=== PATIENT | male | born 1955 | race African-American/Black ===

== ENCOUNTER 2016-07-27 15:04 | Inpatient (IN) | payer OTHER ==
[2016-07-27 19:46] VITALS: BMI 29.6
--- NOTE | 2016-07-27 20:44 | HP ---
CIWA Score - CIWA Score Nausea/Vomitin Muscle Tremors: 3 Anxiety: 3 Agitation: 3 Paroxysmal Sweats: 2 Orientation: 0-Oriented Tacttile Disturbances: 0-None Auditory Disturbances: 0-None Visual Disturbances: 0-None Headache: 1-Very Mild CIWA-Ar Total Score: 14 Admission ROS BHS - HPI Chief Complaint: WITHDRAWAL SYMPTOMS Allergies/Adverse Reactions: Allergies Allergy/AdvReac Type Severity Reaction Status Date / Time lisinopril AdvReac Severe Swelling Verified 06/07/16 21:04 of the Face History of Present Illness: 61 Y.O. MAN WITH AN EXTENSIVE HISTORY OF ALCOHOL DEPENDENCE IS SEEKING DETOX. HE HAS HAD MULTIPLE ADMISSIONS HERE FOR DETOX AND WAS PREVIOUSLY HERE IN May,. HE DENIES HAVING A SIGNIFICANT PERIOD OF SOBRIETY. Exam Limitations: Intoxication - Ebola screening Have you traveled outside of the country in the last 21 days: No Have you had contact with anyone from an Ebola affected area: No Have you been sick,other than usual withdrawal symptoms: No - Review of Systems Constitutional: Chills, Night Sweats, Changes in sleep EENT: reports: Blurred Vision, Double Vision Respiratory: reports: No Symptoms reported Cardiac: reports: No Symptoms Reported GI: reports: No Symptoms Reported : reports: No Symptoms Reported Musculoskeletal: reports: No Symptoms Reported Integumentary: reports: Other (HAS A BRACE TO HIS RIGHT FOOT. HAD CORN REMOVAL SX TO RIGHT BIG TOE.) Neuro: reports: Tremors Endocrine: reports: No Symptoms Reported Hematology: reports: No Symptoms Reported Psychiatric: reports: Orientated x3 Other Systems: Reviewed and Negative Patient History - Patient Medical History Hx Anemia: No Hx Asthma: No Hx Chronic Obstructive Pulmonary Disease (COPD): Yes Hx Cancer: No Hx Cardiac Disorders: No Hx Congestive Heart Failure: No Hx Hypertension: Yes Hx Hypercholesterolemia: No Hx Pacemaker: No HX Cerebrovascular Accident: No Hx Seizures: No Hx Dementia: No Hx Diabetes: Yes (Type II) Hx Gastrointestinal Disorders: Yes Hx Liver Disease: No Hx Genitourinary Disorders: No Hx Sexually Transmitted Disorders: No Hx Renal Disease (ESRD): No Hx Thyroid Disease: No Hx Human Immunodeficiency Virus (HIV): No Hx Hepatitis C: No Hx Depression: Yes Hx Suicide Attempt: No Hx Bipolar Disorder: No Hx Schizophrenia: No - Patient Surgical History Past Surgical History: Yes Hx Neurologic Surgery: No Hx Cataract Extraction: No Hx Cardiac Surgery: No Hx Lung Surgery: No Hx Breast Surgery: No Hx Breast Biopsy: No Hx Abdominal Surgery: Yes (left inguinal hernia repair in 1979) Hx Appendectomy: No Hx Cholecystectomy: No Hx Genitourinary Surgery: No Hx Section: No Hx Orthopedic Surgery: No Other Surgical History: R FOOT CORN REMOVAL ON GREAT TOE 05/2016 Anesthesia Reaction: No - PPD History Previous Implant?: Yes Documented Results: Negative w/proof Implanted On Prior [facility] Admission?: Yes Date: 06/30/15 Results: 0 MM PPD to be Administered?: Yes - Reproductive History Patient is a Female of Child Bearing Age (11 -55 yrs old): No - Smoking Cessation Smoking history: Never smoked Have you smoked in the past 12 months: No Aproximately how many cigarettes per day: 0 Cigars Per Day: 0 Hx Chewing Tobacco Use: No - Substance & Tx. History Hx Alcohol Use: Yes Hx Substance Use: Yes Substance Use Type: Alcohol Hx Substance Use Treatment: Yes (DETOX AND REHAB ) - Substances Abused Alcohol Route: Oral Frequency: Daily Amount used: 6PACK OF BEER AND 1.5 PINTS OF LIQUOR Age of first use: 19 Date of Last Use: 07/27/16 Family Disease History - Family Disease History Family Disease History: Diabetes: Mother (htn), Heart Disease: Mother, Respiratory: Sister (PN ), Other: Grandparent (htn), Father (htn ) Admission Physical Exam BHS - Vital Signs Vital Signs: Vital Signs - 24 hr 07/27/16 19:44 Temperature 97.6 F Pulse Rate 62 Respiratory 16 Rate Blood Pressure 135/89 - Physical General Appearance: Yes: Disheveled, Alcohol on Breath, Intoxicated HEENTM: Yes: Normal ENT Inspection, Normocephalic, Normal Voice Respiratory: Yes: Chest Non-Tender, Lungs Clear, Normal Breath Sounds, No Respiratory Distress, No Accessory Muscle Use Neck: Yes: No masses,lesions,Nodules, Trachea in good position Breast: Yes: Breast Exam Deferred Cardiology: Yes: Regular Rhythm, Regular Rate, S1, S2 Abdominal: Yes: Normal Bowel Sounds, Non Tender, Flat, Soft Genitourinary: Yes: Within Normal Limits Back: Yes: Normal Inspection Musculoskeletal: Yes: Other (UNSTEAD GAIT; USING A CH) Extremities: Yes: Other (HAS A DRESSING AND BRACE TO RIGHT FOOT; HAD CORN REMOVAL SX. PT. STATES DRESSING TO BE CHANGED A WEEK FROM NOW. SKIN DISCOLORATION TO B/L LE) Neurological: Yes: Alert, Normal Response Integumentary: Yes: Dry, Warm Lymphatic: Yes: Within Normal Limits - Diagnostic (1) Opioid dependence on agonist therapy Current Visit: Yes Status: Chronic (2) Alcohol dependence with uncomplicated withdrawal Current Visit: Yes Status: Chronic (3) Asthma Current Visit: Yes Status: Chronic Qualifiers: Asthma severity: mild persistent Asthma complication type: with status asthmaticus Qualified Code(s): J45.32 - Mild persistent asthma with status asthmaticus (4) COPD (chronic obstructive pulmonary disease) Current Visit: Yes Status: Chronic Qualifiers: COPD type: chronic bronchitis Chronic bronchitis type: simple Qualified Code(s): J41.0 - Simple chronic bronchitis (5) Type II diabetes mellitus Current Visit: Yes Status: Chronic Qualifiers: Diabetes mellitus complication status: without complication Diabetes mellitus retirement insulin use: with exterminator helper use Qualified Code(s): E11.9 - Type 2 diabetes mellitus without complications Cleared for Admission BHS - Detox or Rehab [facility] Level of Care: Medically Managed Detox Regimen/Protocol: Librium [facility] Breath Alcohol Content Breath Alcohol Content: 0.046 Urine Drug Screen - Results Drug Screen Negative: No Urine Drug Screen Results: BZO-Benzodiazepines, MTD-Methadone
[2016-07-27] MEDS ORDERED: ALBUTEROL SO4 6.7 GM HFA INHALER IH PRN (20:56)
[2016-07-27] MEDS ORDERED: MAGNESIUM CITRATE 300 ML BOTTLE PO PRN (20:59)
[2016-07-27] MEDS ORDERED: MAGNESIUM HYDROX 2400MG/30ML ORAL SUSPENSION 30 ML CUP PO PRN (20:59)
[2016-07-27] MEDS ORDERED: LOPERAMIDE HCL 2 MG CAPSULE PO PRN (20:59)
[2016-07-27] MEDS ORDERED: P-EPHED 60MG/TRIPROLIDI 2.5MG TABLET PO PRN (20:59)
[2016-07-27] MEDS ORDERED: hydrOXYzine PAMOATE 50 MG CAPSULE (FP) PO PRN (20:59)
[2016-07-27] MEDS ORDERED: guaiFENesin/D-METHORPHAN HB 10 ML UNIT-DOSE CUPS PO PRN (20:59)
[2016-07-27] MEDS ORDERED: ACETAMINOPHEN 325 MG TABLET (FP) PO PRN (20:59)
[2016-07-27] MEDS ORDERED: chlordiazePOXIDE HCL 25 MG CAPSULE PO ONE (20:59)
[2016-07-27] MEDS ORDERED: MAG HYDROX/AL HYDROX/SIMETH 30 ML UNIT-DOSE CUP PO PRN (20:59)
[2016-07-27] MEDS ORDERED: chlordiazePOXIDE HCL 25 MG CAPSULE PO PRN (20:59)
[2016-07-27] MEDS ORDERED: MENTHOL/PHENOL 1 EACH UD MM PRN (20:59)
[2016-07-27] MEDS: diphenhydrAMINE HCL 50 MG CAPSULE PO PRN (23:25)
[2016-07-27] MEDS: THIAMINE HCL 100 MG TABLET (FP) PO SCH (23:25)
[2016-07-28] MEDS: chlordiazePOXIDE HCL 25 MG CAPSULE PO SCH ×5 (00:02→22:17)
[2016-07-28 01:13] LABS: URINE APPEARANCE CLEAR; URINE BILIRUBIN NEGATIVE (NEGATIVE); URINE BLOOD NEGATIVE (NEGATIVE); URINE COLOR STRAW; URINE GLUCOSE (UA) NEGATIVE (NEGATIVE); URINE KETONE NEGATIVE (NEGATIVE); URINE LEUK ESTERASE NEGATIVE (NEGATIVE); URINE NITRITE NEGATIVE (NEGATIVE); URINE PROTEIN NEGATIVE (NEGATIVE); URINE UROBILINOGEN NEGATIVE E.U./dl (0.2-1.0)
[2016-07-28] MEDS ORDERED: metFORMIN HCL 500 MG TABLET (FP) PO SCH (07:00)
[2016-07-28] MEDS ORDERED: METHADONE HCL 10 MG TABLET PO SCH (09:00)
--- NOTE | 2016-07-28 09:00 | PN ---
S CIWA - CIWA Score Nausea/Vomitin Muscle Tremors: 4-Moderate,w/Arms Extend Anxiety: 4-Mod. Anxious/Guarded Agitation: 4-Moderately Restless Paroxysmal Sweats: 3 Orientation: 0-Oriented Tacttile Disturbances: 1-Very Mild Itch/Numbness Auditory Disturbances: 0-None Visual Disturbances: 0-None Headache: 2-Mild CIWA-Ar Total Score: 21 BHS Progress Note (SOAP) Subjective: nausea, sweats, interrupted sleep, anxiety, tremors, tingling in feet Objective: 07/28/16 08:59 Vital Signs - 24 hr 07/27/16 07/27/16 07/28/16 19:44 23:29 03:30 Temperature 97.6 F 97.2 F L Pulse Rate 62 68 Respiratory 16 18 18 Rate Blood Pressure 135/89 121/76 07/28/16 06:41 Temperature 96.2 F L Pulse Rate 72 Respiratory 18 Rate Blood Pressure 144/81 Laboratory Tests 07/28/16 07/28/16 00:45 05:40 POC Glucometer 158 Urine Color Straw Urine Appearance Clear Urine pH 5.0 Ur Specific [place] 1.002 Urine Protein Negative Urine Glucose (UA) Negative Urine Ketones Negative Urine Blood Negative Urine Nitrite Negative Urine Bilirubin Negative Urine Urobilinogen Negative Ur Leukocyte Esterase Negative labs still pending Assessment: 07/28/16 08:59 withdrawal sx Plan: cont detox, fluids, encoruage ambulation restart meds, will restart clonidine 0.1mg bid and titrate as needed
[2016-07-28] MEDS: ASPIRIN COATED 81 MG TABLET.EC PO SCH (10:14)
[2016-07-28] MEDS: cloNIDine HCL 0.1 MG TABLET PO SCH ×2 (10:14→22:17)
[2016-07-28] MEDS: PRENATAL VITAMINS W/ FOLIC ACID TABLET (FP) PO SCH (10:15)
[2016-07-28] MEDS ORDERED: METHADONE HCL 10 MG TABLET (FOR DETOX USE ONLY) ONE (10:17)
[2016-07-28] MEDS: METHADONE PO SCH (10:18)
[2016-07-28] MEDS ORDERED: METHADONE HCL 40 MG DISPERSABLE TABLET ONE (10:18)
--- NOTE | 2016-07-28 10:56 | CONSULT ---
[facility] Psychiatric Consult - Data Date of interview: 07/28/16 Admission source: [facility] Identifying data: New admission to [facility] for this 61 y/o AA male seeking detox treatment on for alcohol and opioid dependence.Patient is single, a father of one,domiciled,unemployed and supported on welfare. Substance Abuse History: Smoking Cessation. Smoking history: Never smoked. Have you smoked in the past 12 months: No. Aproximately how many cigarettes per day: 0. Cigars Per Day: 0. Hx Chewing Tobacco Use: No. - Substance & Tx. History. Hx Alcohol Use: Yes. Hx Substance Use: Yes. Substance Use Type: Alcohol. Hx Substance Use Treatment: Yes (DETOX AND REHAB ). - Substances Abused. Alcohol. Route: Oral. Frequency: Daily. Amount used: 6PACK OF BEER AND 1.5 PINTS OF LIQUOR. Age of first use: 19. Date of Last Use: . Discussed in this interview.Patient confirms this pattern of substance abuse. Medical History: Hypertension,insulin-dependent diabetes mellitus,arthritis,COPD ,GERD,hypercholesterolemia,myocardial infarction and a past history of syphilis (treated).No change from previous encounter in May 2016. Psychiatric History: Patient denies history of psychiatric hospitalizations.Mr Barth is on methadone maintenance (90 mg/day) at the [facility] program ( [address] [place] [address] in the [place].No reported history of suicide attempts. Physical/Sexual Abuse/Trauma History: No history. Additional Comment: Urine Drug Screen Results: BZO-Benzodiazepines, MTD- Methadone.Noted. Mental Status Exam - Mental Status Exam Alert and Oriented to: Time, Place, Person Cognitive Function: Good Patient Appearance: Well Groomed Mood: Hopeful, Euthymic Affect: Appropriate, Normal Range Patient Behavior: Fatigued, Appropriate, Cooperative Speech Pattern: Clear, Appropriate Voice Loudness: Normal Thought Process: Goal Oriented Thought Disorder: Not Present Hallucinations: Denies Suicidal Ideation: Denies Homicidal Ideation: Denies Insight/Judgement: Fair Sleep: Difficulty falling asleep Appetite: Good Muscle strength/Tone: Normal Gait/Station: Normal Psychiatric Findings - Problem List ([place] 1, 2,3) (1) Alcohol dependence with uncomplicated withdrawal Current Visit: Yes Status: Acute (2) Opioid dependence on agonist therapy Current Visit: Yes Status: Acute (3) Drug-induced mood disorder Current Visit: Yes Status: Acute (4) Alcohol-induced sleep disorder Current Visit: Yes Status: Chronic (5) DM (diabetes mellitus), type 1 Current Visit: Yes Status: Chronic Qualifiers: Diabetes mellitus complication status: with circulatory complication Diabetes mellitus complication detail: with peripheral angiopathy without gangrene Qualified Code(s): E10.51 - Type 1 diabetes mellitus with diabetic peripheral angiopathy without gangrene (6) Asthma Current Visit: Yes Status: Chronic Qualifiers: Asthma severity: mild persistent Asthma complication type: with status asthmaticus Qualified Code(s): J45.32 - Mild persistent asthma with status asthmaticus (7) COPD (chronic obstructive pulmonary disease) Current Visit: Yes Status: Chronic Qualifiers: COPD type: chronic bronchitis Chronic bronchitis type: simple Qualified Code(s): J41.0 - Simple chronic bronchitis (8) GERD (gastroesophageal reflux disease) Current Visit: Yes Status: Chronic Qualifiers: Esophagitis presence: without esophagitis Qualified Code(s): K21.9 - Gastro-esophageal reflux disease without esophagitis - Initial Treatment Plan Initial Treatment Plan: Psychoeducation.Detoxification.Seroquel 100 mg po hs.Side effects/benefits discucssed with the patient.He agrees with this plan.Observation.
[2016-07-28 10:58] LABS: MCH 27.2 pg (25.7-33.7); MCHC 31.1 g/dl (32.0-35.9); MEAN CELL VOLUME 87.2 fl (80-96); MEAN PLT VOLUME 8.8 fl (7.5-11.1); PLATELET COUNT 228 K/MM3 (134-434); RDW 14.9 % (11.9-15.9); WHITE BLOOD COUNT 5.6 K/mm3 (4.0-10.0)
[2016-07-28] MEDS ORDERED: INSULIN SQ SCH ×2 (11:00→14:00)
[2016-07-28 11:09] LABS: ALBUMIN 3.2 g/dl (3.4-5.0); ALK PHOS 96 U/L (45-117); ANION GAP 9 (8-16); BILIRUBIN,TOTAL 0.4 mg/dL (0.2-1.0); CALCIUM 9.1 mg/dL (8.5-10.1); CO2 29 mmol/L (21-32); CREATININE 0.9 mg/dL (0.7-1.3); GLUCOSE,RANDOM 190 mg/dL (74-106); SGOT/AST 30 U/L (15-37); SGPT/ALT 23 U/L (12-78); TOT PROT 8.3 g/dl (6.4-8.2)
[2016-07-28] MEDS ORDERED: INSULIN (NOVOLOG) ASPART 100 UNITS/ML 10ML VIAL ONE (11:54)
[2016-07-28] MEDS: INSULIN SLIDING SCALE (NOVOLOG) 1 VIAL SQ SCH ×2 (11:55→18:03)
[2016-07-28] MEDS: AMOX TR/POT CLAV 500MG/125MG TABLETS (FP) PO SCH ×2 (11:56→17:23)
[2016-07-28] MEDS: metFORMIN HCL 500 MG TABLET (FP) PO SCH (17:23)
--- NOTE | 2016-07-28 18:27 | EKG ---
Test Reason : Blood Pressure : / mmHG Vent. Rate : 064 BPM Atrial Rate : 064 BPM P-R Int : 156 ms QRS Dur : 088 ms QT Int : 428 ms P-R-T Axes : 064 009 031 degrees QTc Int : 441 ms NORMAL SINUS RHYTHM NONSPECIFIC T WAVE ABNORMALITY ABNORMAL ECG NO PREVIOUS ECGS AVAILABLE Confirmed by CIARAN CROCKER, CARMELO ([id number]) on 07/28/2016 6:27:15 PM Referred By: Confirmed By:CARMELO WAGONER MD
[2016-07-28] MEDS ORDERED: PATIENT'S OWN MEDICATION (NON-FORMULARY) (Insulin Glargine,Hum.Rec.Anlog 20 UNITS) SQ SCH (22:00)
[2016-07-28] MEDS: QUEtiapine FUMARATE 100 MG TABLET (FP) PO SCH (22:17)
[2016-07-28] MEDS: THIAMINE HCL 100 MG TABLET (FP) PO SCH (22:17)
[2016-07-28] MEDS: diphenhydrAMINE HCL 50 MG CAPSULE PO PRN (22:18)
[2016-07-29] MEDS ORDERED: METHADONE HCL 40 MG DISPERSABLE TABLET ONE (04:20)
[2016-07-29] MEDS ORDERED: METHADONE HCL 10 MG TABLET (FOR DETOX USE ONLY) ONE (04:20)
[2016-07-29] MEDS: chlordiazePOXIDE HCL 25 MG CAPSULE PO SCH ×3 (05:17→17:27)
[2016-07-29] MEDS: METHADONE PO SCH (05:17)
[2016-07-29] MEDS ORDERED: INSULIN (NOVOLOG) ASPART 100 UNITS/ML 10ML VIAL ONE ×3 (06:25→16:50)
[2016-07-29] MEDS: Insulin (LOG) Aspart 100 UNITS/ML VIAL SQ SCH ×3 (07:12→17:30)
[2016-07-29] MEDS: metFORMIN HCL 500 MG TABLET (FP) PO SCH ×2 (07:12→17:27)
[2016-07-29] MEDS: AMOX TR/POT CLAV 500MG/125MG TABLETS (FP) PO SCH ×2 (07:14→17:28)
[2016-07-29] MEDS: PRENATAL VITAMINS W/ FOLIC ACID TABLET (FP) PO SCH (10:13)
[2016-07-29] MEDS: cloNIDine HCL 0.1 MG TABLET PO SCH ×2 (10:13→22:16)
[2016-07-29] MEDS: ASPIRIN COATED 81 MG TABLET.EC PO SCH (10:13)
--- NOTE | 2016-07-29 15:10 | PN ---
S CIWA - CIWA Score Nausea/Vomitin Muscle Tremors: 4-Moderate,w/Arms Extend Anxiety: 4-Mod. Anxious/Guarded Agitation: 4-Moderately Restless Paroxysmal Sweats: No Perspiration Orientation: 0-Oriented Tacttile Disturbances: 1-Very Mild Itch/Numbness Auditory Disturbances: 0-None Visual Disturbances: 0-None Headache: 2-Mild CIWA-Ar Total Score: 18 BHS Progress Note (SOAP) Subjective: Anxious, restless, nausea, sweating, interrupted sleep, tremor Objective: 07/29/16 15:08 Last Vital Signs Temp Pulse Resp BP Pulse Ox 98 F 80 20 118/72 07/29/16 14:09 07/29/16 14:09 07/29/16 14:09 07/29/16 14:09 Laboratory Tests 07/28/16 07/28/16 07/28/16 00:45 05:40 08:00 WBC 5.6 D RBC 4.36 Hgb 11.8 Hct 38.0 MCV 87.2 MCHC 31.1 L RDW 14.9 Plt Count 228 D MPV 8.8 Sodium Potassium Chloride Carbon Dioxide Anion Gap BUN Creatinine Creat Clearance w eGFR POC Glucometer 158 Random Glucose Calcium Total Bilirubin AST ALT Alkaline Phosphatase Total Protein Albumin Urine Color Straw Urine Appearance Clear Urine pH 5.0 Ur Specific [place] 1.002 Urine Protein Negative Urine Glucose (UA) Negative Urine Ketones Negative Urine Blood Negative Urine Nitrite Negative Urine Bilirubin Negative Urine Urobilinogen Negative Ur Leukocyte Esterase Negative RPR Titer 07/28/16 07/28/16 07/28/16 08:00 08:00 11:42 WBC RBC Hgb Hct MCV MCHC RDW Plt Count MPV Sodium 138 Potassium 4.3 Chloride 100 Carbon Dioxide 29 Anion Gap 9 BUN 12 D Creatinine 0.9 Creat Clearance w eGFR > 60 POC Glucometer 256 Random Glucose 190 H Calcium 9.1 Total Bilirubin 0.4 D AST 30 ALT 23 D Alkaline Phosphatase 96 Total Protein 8.3 H Albumin 3.2 L Urine Color Urine Appearance Urine pH Ur Specific [place] Urine Protein Urine Glucose (UA) Urine Ketones Urine Blood Urine Nitrite Urine Bilirubin Urine Urobilinogen Ur Leukocyte Esterase RPR Titer Nonreactive 07/28/16 07/29/16 16:27 05:16 WBC RBC Hgb Hct MCV MCHC RDW Plt Count MPV Sodium Potassium Chloride Carbon Dioxide Anion Gap BUN Creatinine Creat Clearance w eGFR POC Glucometer 202 326 Random Glucose Calcium Total Bilirubin AST ALT Alkaline Phosphatase Total Protein Albumin Urine Color Urine Appearance Urine pH Ur Specific [place] Urine Protein Urine Glucose (UA) Urine Ketones Urine Blood Urine Nitrite Urine Bilirubin Urine Urobilinogen Ur Leukocyte Esterase RPR Titer Labs noted Assessment: 07/29/16 15:09 Withdrawal symptoms Plan: Continue detox
[2016-07-29] MEDS: IBUPROFEN 400 MG TABLET (FP) PO PRN (20:59)
[2016-07-29] MEDS: QUEtiapine FUMARATE 100 MG TABLET (FP) PO SCH (22:16)
[2016-07-29] MEDS: THIAMINE HCL 100 MG TABLET (FP) PO SCH (22:16)
[2016-07-29] MEDS: chlordiazePOXIDE 5 MG CAPSULE PO SCH (22:16)
[2016-07-29] MEDS: diphenhydrAMINE HCL 50 MG CAPSULE PO PRN (22:18)
[2016-07-30] MEDS ORDERED: METHADONE HCL 10 MG TABLET (FOR DETOX USE ONLY) ONE (04:16)
[2016-07-30] MEDS ORDERED: METHADONE HCL 40 MG DISPERSABLE TABLET ONE (04:17)
[2016-07-30] MEDS: METHADONE PO SCH (05:47)
[2016-07-30] MEDS: chlordiazePOXIDE 5 MG CAPSULE PO SCH ×3 (05:48→16:37)
[2016-07-30] MEDS ORDERED: cloNIDine HCL 0.1 MG TABLET PO ONE ×2 (07:00→10:00)
[2016-07-30] MEDS: Insulin (LOG) Aspart 100 UNITS/ML VIAL SQ SCH ×3 (07:05→16:39)
[2016-07-30] MEDS: metFORMIN HCL 500 MG TABLET (FP) PO SCH ×2 (07:05→16:37)
[2016-07-30] MEDS: AMOX TR/POT CLAV 500MG/125MG TABLETS (FP) PO SCH ×2 (07:05→16:39)
[2016-07-30] MEDS ORDERED: cloNIDine HCL 0.1 MG TABLET PO SCH (09:14)
[2016-07-30] MEDS: PRENATAL VITAMINS W/ FOLIC ACID TABLET (FP) PO SCH (10:09)
[2016-07-30] MEDS: ASPIRIN COATED 81 MG TABLET.EC PO SCH (10:09)
--- NOTE | 2016-07-30 10:46 | PN ---
BHS Progress Note (SOAP) Subjective: SWEATS, ANXIETY,TREMORS,FATIGUE. Objective: 07/30/16 10:45 Vital Signs Temperature 96.4 F L 07/30/16 06:29 Pulse Rate 79 07/30/16 06:29 Respiratory Rate 18 07/30/16 06:29 Blood Pressure 151/92 07/30/16 06:29 O2 Sat by Pulse Oximetry (%) Laboratory Last Values WBC 5.6 K/mm3 (4.0-10.0) D 07/28/16 08:00 RBC 4.36 M/mm3 (4.00-5.60) 07/28/16 08:00 Hgb 11.8 GM/dL (11.7-16.9) 07/28/16 08:00 Hct 38.0 % (35.4-49) 07/28/16 08:00 MCV 87.2 fl (80-96) 07/28/16 08:00 MCHC 31.1 g/dl (32.0-35.9) L 07/28/16 08:00 RDW 14.9 % (11.9-15.9) 07/28/16 08:00 Plt Count 228 K/MM3 (134-434) D 07/28/16 08:00 MPV 8.8 fl (7.5-11.1) 07/28/16 08:00 Sodium 138 mmol/L (136-145) 07/28/16 08:00 Potassium 4.3 mmol/L (3.5-5.1) 07/28/16 08:00 Chloride 100 mmol/L (98-107) 07/28/16 08:00 Carbon Dioxide 29 mmol/L (21-32) 07/28/16 08:00 Anion Gap 9 (8-16) 07/28/16 08:00 BUN 12 mg/dL (7-18) D 07/28/16 08:00 Creatinine 0.9 mg/dL (0.7-1.3) 07/28/16 08:00 Creat Clearance w eGFR > 60 (>60) 07/28/16 08:00 POC Glucometer 312 UNITS (()) 07/30/16 05:45 Random Glucose 190 mg/dL (74-106) H 07/28/16 08:00 Calcium 9.1 mg/dL (8.5-10.1) 07/28/16 08:00 Total Bilirubin 0.4 mg/dL (0.2-1.0) D 07/28/16 08:00 AST 30 U/L (15-37) 07/28/16 08:00 ALT 23 U/L (12-78) D 07/28/16 08:00 Alkaline Phosphatase 96 U/L (45-117) 07/28/16 08:00 Total Protein 8.3 g/dl (6.4-8.2) H 07/28/16 08:00 Albumin 3.2 g/dl (3.4-5.0) L 07/28/16 08:00 Urine Color Straw 07/28/16 00:45 Urine Appearance Clear 07/28/16 00:45 Urine pH 5.0 (5.0-8.0) 07/28/16 00:45 Ur Specific [place] 1.002 (1.001-1.035) 07/28/16 00:45 Urine Protein Negative (NEGATIVE) 07/28/16 00:45 Urine Glucose (UA) Negative (NEGATIVE) 07/28/16 00:45 Urine Ketones Negative (NEGATIVE) 07/28/16 00:45 Urine Blood Negative (NEGATIVE) 07/28/16 00:45 Urine Nitrite Negative (NEGATIVE) 07/28/16 00:45 Urine Bilirubin Negative (NEGATIVE) 07/28/16 00:45 Urine Urobilinogen Negative E.U./dl (0.2-1.0) 07/28/16 00:45 Ur Leukocyte Esterase Negative (NEGATIVE) 07/28/16 00:45 RPR Titer Nonreactive (NONREACTIVE) 07/28/16 08:00 Assessment: 07/30/16 10:46 WITHDRAWAL SX Plan: CONTINUE DETOX
[2016-07-30] MEDS: IBUPROFEN 400 MG TABLET (FP) PO PRN ×2 (10:58→16:42)
[2016-07-30] MEDS ORDERED: INSULIN (NOVOLOG) ASPART 100 UNITS/ML 10ML VIAL ONE ×3 (11:09→21:17)
[2016-07-30] MEDS: cloNIDine HCL 0.1 MG TABLET PO SCH ×2 (14:13→21:43)
[2016-07-30] MEDS: INSULIN SLIDING SCALE (NOVOLOG) 1 VIAL SQ SCH ×2 (17:24→21:46)
[2016-07-30] MEDS ORDERED: INSULIN DETEMIR 100 UNITS/ML MDV SQ ONE (21:15)
[2016-07-30] MEDS: QUEtiapine FUMARATE 100 MG TABLET (FP) PO SCH (21:43)
[2016-07-30] MEDS: THIAMINE HCL 100 MG TABLET (FP) PO SCH (21:47)
[2016-07-30] MEDS ORDERED: INSULIN DETEMIR 100 UNITS/ML MDV SQ SCH (22:00)
[2016-07-30] MEDS: chlordiazePOXIDE HCL 10 MG CAPSULE PO SCH (22:53)
[2016-07-31] MEDS: IBUPROFEN 400 MG TABLET (FP) PO PRN ×2 (01:00→09:21)
[2016-07-31] MEDS ORDERED: METHADONE HCL 40 MG DISPERSABLE TABLET ONE (01:25)
[2016-07-31] MEDS ORDERED: METHADONE HCL 10 MG TABLET (FOR DETOX USE ONLY) ONE (01:25)
[2016-07-31] MEDS: METHADONE PO SCH (05:48)
[2016-07-31] MEDS: chlordiazePOXIDE HCL 10 MG CAPSULE PO SCH (05:48)
[2016-07-31] MEDS: metFORMIN HCL 500 MG TABLET (FP) PO SCH (06:26)
[2016-07-31] MEDS ORDERED: INSULIN (NOVOLOG) ASPART 100 UNITS/ML 10ML VIAL ONE (07:07)
[2016-07-31] MEDS: INSULIN SLIDING SCALE (NOVOLOG) 1 VIAL SQ SCH (07:47)
[2016-07-31] MEDS: cloNIDine HCL 0.1 MG TABLET PO SCH (07:47)
[2016-07-31] MEDS: AMOX TR/POT CLAV 500MG/125MG TABLETS (FP) PO SCH (07:47)
[2016-07-31] MEDS: PRENATAL VITAMINS W/ FOLIC ACID TABLET (FP) PO SCH (09:20)
[2016-07-31 10:02] VITALS: BP 136/89; PULSE 90; TEMP 97
--- NOTE | 2016-07-31 10:52 | DS ---
[facility] Detox Discharge Summary Admission Date: 07/27/16 Discharge Date: 07/31/16 - History Present History: Alcohol Dependence Additional Comments: PT COMPLETED DETOX. INSTRUCTED TO F/U WITH PMDDR. POLK AT [facility] FOR MEDICAL MANAGEMENT OF HIS COMORBID CONDITIONS. PT HAS HIS OWN MEDS. - Physical Exam Results Vital Signs: Vital Signs Temperature 97 F L 07/31/16 10:01 Pulse Rate 90 07/31/16 10:01 Respiratory Rate 20 07/31/16 10:01 Blood Pressure 136/89 07/31/16 10:01 O2 Sat by Pulse Oximetry (%) Pertinent Admission Physical Exam Findings: WITHDRAWAL SX Laboratory Last Values WBC 5.6 K/mm3 (4.0-10.0) D 07/28/16 08:00 RBC 4.36 M/mm3 (4.00-5.60) 07/28/16 08:00 Hgb 11.8 GM/dL (11.7-16.9) 07/28/16 08:00 Hct 38.0 % (35.4-49) 07/28/16 08:00 MCV 87.2 fl (80-96) 07/28/16 08:00 MCHC 31.1 g/dl (32.0-35.9) L 07/28/16 08:00 RDW 14.9 % (11.9-15.9) 07/28/16 08:00 Plt Count 228 K/MM3 (134-434) D 07/28/16 08:00 MPV 8.8 fl (7.5-11.1) 07/28/16 08:00 Sodium 138 mmol/L (136-145) 07/28/16 08:00 Potassium 4.3 mmol/L (3.5-5.1) 07/28/16 08:00 Chloride 100 mmol/L (98-107) 07/28/16 08:00 Carbon Dioxide 29 mmol/L (21-32) 07/28/16 08:00 Anion Gap 9 (8-16) 07/28/16 08:00 BUN 12 mg/dL (7-18) D 07/28/16 08:00 Creatinine 0.9 mg/dL (0.7-1.3) 07/28/16 08:00 Creat Clearance w eGFR > 60 (>60) 07/28/16 08:00 POC Glucometer 331 UNITS (()) 07/31/16 05:47 Random Glucose 190 mg/dL (74-106) H 07/28/16 08:00 Calcium 9.1 mg/dL (8.5-10.1) 07/28/16 08:00 Total Bilirubin 0.4 mg/dL (0.2-1.0) D 07/28/16 08:00 AST 30 U/L (15-37) 07/28/16 08:00 ALT 23 U/L (12-78) D 07/28/16 08:00 Alkaline Phosphatase 96 U/L (45-117) 07/28/16 08:00 Total Protein 8.3 g/dl (6.4-8.2) H 07/28/16 08:00 Albumin 3.2 g/dl (3.4-5.0) L 07/28/16 08:00 Urine Color Straw 07/28/16 00:45 Urine Appearance Clear 07/28/16 00:45 Urine pH 5.0 (5.0-8.0) 07/28/16 00:45 Ur Specific [place] 1.002 (1.001-1.035) 07/28/16 00:45 Urine Protein Negative (NEGATIVE) 07/28/16 00:45 Urine Glucose (UA) Negative (NEGATIVE) 07/28/16 00:45 Urine Ketones Negative (NEGATIVE) 07/28/16 00:45 Urine Blood Negative (NEGATIVE) 07/28/16 00:45 Urine Nitrite Negative (NEGATIVE) 07/28/16 00:45 Urine Bilirubin Negative (NEGATIVE) 07/28/16 00:45 Urine Urobilinogen Negative E.U./dl (0.2-1.0) 07/28/16 00:45 Ur Leukocyte Esterase Negative (NEGATIVE) 07/28/16 00:45 RPR Titer Nonreactive (NONREACTIVE) 07/28/16 08:00 - Treatment Hospital Course: Detox Protocol Followed, Detoxed Safely, Responded well, Discharged Condition Good - Medication Discharge Medications: Ambulatory Orders Insulin (Novolog) [Novolog Flexpen -] 10 units SQ TID 01/09/12 Aspirin Coated [Ecotrin -] 81 mg PO DAILY 09/21/15 Albuterol Sulfate Inhaler - [Ventolin HFA Inhaler -] 2 inh PO PRN PRN #1 inhaler 09/25/15 Insulin Glargine,Hum.rec.anlog [Lantus Solostar PEN -] 20 units SQ HS #1 vial Clonidine HCl [Catapres] 0.3 mg PO TID 11/20/15 Metformin HCl [Glucophage -] 500 mg PO ACBK 11/20/15 Quetiapine Fumarate [Seroquel] 100 tab PO HS #30 tablet 02/24/16 Quetiapine Fumarate [Seroquel] 100 tab PO HS #30 tablet 06/08/16 Quetiapine Fumarate [Seroquel] 100 mg PO HS #30 tablet 07/31/16 - Diagnosis (1) Alcohol dependence with uncomplicated withdrawal Status: Acute (2) Asthma Status: Chronic Qualifiers: Asthma severity: mild persistent Asthma complication type: with status asthmaticus Qualified Code(s): J45.32 - Mild persistent asthma with status asthmaticus (3) Essential hypertension Status: Chronic (4) GERD (gastroesophageal reflux disease) Status: Chronic Qualifiers: Esophagitis presence: without esophagitis Qualified Code(s): K21.9 - Gastro-esophageal reflux disease without esophagitis (5) Methadone maintenance therapy patient Status: Chronic (6) Type II diabetes mellitus Status: Chronic Qualifiers: Diabetes mellitus complication status: without complication Diabetes mellitus nursing home insulin use: with termite treater helper use Qualified Code(s): E11.9 - Type 2 diabetes mellitus without complications (7) Anemia Status: Resolved Qualifiers: Anemia type: folate deficiency Folate deficiency anemia type: dietary Qualified Code(s): D52.0 - Dietary folate deficiency anemia (8) Opioid dependence on agonist therapy Status: Acute (9) Cocaine dependence Status: Chronic Qualifiers: Substance use status: uncomplicated Qualified Code(s): F14.20 - Cocaine dependence, uncomplicated - AMA Did Patient Leave Against Medical Advice: No
== END 2016-07-31 09:45 | disposition home or self-care (01) | DRG 773 ==
LOC: YASAS 15:04 → Y3N 21:19
PROVIDERS: ADMIT Internal Medicine; ATTEND Internal Medicine
PROC: HZ2ZZZZ Detoxification Services for Substance Abuse Treatment (ICD-10-PCS; principal; 2016-07-31)
DX: F11.23 Opioid dependence with withdrawal (principal); F10.230 Alcohol dependence with withdrawal, uncomplicated; F14.20 Cocaine dependence, uncomplicated; F19.282 Other psychoactive substance dependence with psychoactive substance-induced sleep disorder; I10 Essential (primary) hypertension; E11.9 Type 2 diabetes mellitus without complications; Z79.4 Long term (current) use of insulin; J45.32 Mild persistent asthma with status asthmaticus; D52.0 Dietary folate deficiency anemia
CPT/HCPCS: 36415; 80053; 81003; 85027; 86593; 93005; 93010

== ENCOUNTER 2016-10-15 16:45 | Inpatient (IN) | payer OTHER ==
[2016-10-15 19:02] VITALS: BMI 31.2
--- NOTE | 2016-10-15 20:23 | HP ---
CIWA Score - CIWA Score Nausea/Vomitin Muscle Tremors: 4-Moderate,w/Arms Extend Anxiety: 3 Agitation: 4-Moderately Restless Paroxysmal Sweats: 2 Orientation: 1-Uncertain about Date Tacttile Disturbances: 1-Very Mild Itch/Numbness Auditory Disturbances: 1-Very Mild Visual Disturbances: 1-Very Mild Sensitivity Headache: 1-Very Mild CIWA-Ar Total Score: 20 Admission ROS BHS - HPI Chief Complaint: WITHDRAWAL SYMPTOMS Allergies/Adverse Reactions: Allergies Allergy/AdvReac Type Severity Reaction Status Date / Time lisinopril AdvReac Severe Swelling Verified 07/27/16 21:17 of the Face History of Present Illness: 61 Y.O. MAN WITH AN EXTENSIVE HISTORY OF ALCOHOL DEPENDENCE IS HERE SEEKING DETOX. HE WAS LAST HERE ON 07/27/16. HE DOES NOT HAVE A SIGNIFICANT PERIOD OF SOBRIETY. HE'S IN A MMTP AT [facility] AND REPORTS HE WAS LAST DOSED TODAY. Exam Limitations: Intoxication - Ebola screening Have you traveled outside of the country in the last 21 days: No Have you had contact with anyone from an Ebola affected area: No Have you been sick,other than usual withdrawal symptoms: No Do you have a fever: No - Review of Systems Constitutional: Loss of Appetite, Malaise, Night Sweats, Changes in sleep, Unintentional Wgt. Loss EENT: reports: No Symptoms Reported Respiratory: reports: Shortness of Breath (WITH MAXIMAL EXERTION) Cardiac: reports: No Symptoms Reported GI: reports: Poor Appetite : reports: No Symptoms Reported Musculoskeletal: reports: Other (CORN REMOVAL SURGERY IN 05/2016; WEARS BRACE ON RIGHT FOOT.) Integumentary: reports: Dryness Neuro: reports: No Symptoms reported Endocrine: reports: No Symptoms Reported Hematology: reports: No Symptoms Reported Psychiatric: reports: Mood/Affect Appropiate, Depressed, other (INSOMNIA) Other Systems: Reviewed and Negative Patient History - Patient Medical History Hx Anemia: No Hx Asthma: No Hx Chronic Obstructive Pulmonary Disease (COPD): Yes Hx Cancer: No Hx Cardiac Disorders: No Hx Congestive Heart Failure: No Hx Hypertension: Yes Hx Hypercholesterolemia: No Hx Pacemaker: No HX Cerebrovascular Accident: No Hx Seizures: No Hx Dementia: No Hx Diabetes: Yes Hx Gastrointestinal Disorders: No Hx Liver Disease: No Hx Genitourinary Disorders: No Hx Sexually Transmitted Disorders: No Hx Renal Disease (ESRD): No Hx Thyroid Disease: No Hx Human Immunodeficiency Virus (HIV): No Hx Hepatitis C: No Hx Depression: Yes Hx Suicide Attempt: No Hx Bipolar Disorder: No Hx Schizophrenia: No - Patient Surgical History Past Surgical History: Yes Hx Neurologic Surgery: No Hx Cataract Extraction: No Hx Cardiac Surgery: No Hx Lung Surgery: No Hx Breast Surgery: No Hx Breast Biopsy: No Hx Abdominal Surgery: Yes (left inguinal hernia repair in 1979) Hx Appendectomy: No Hx Cholecystectomy: No Hx Genitourinary Surgery: No Hx Section: No Hx Orthopedic Surgery: No Other Surgical History: R FOOT CORN REMOVAL ON GREAT TOE 05/2016 Anesthesia Reaction: No - PPD History Previous Implant?: Yes Documented Results: Negative w/proof Implanted On Prior [facility] Admission?: Yes Date: 07/29/16 Results: 0 MM PPD to be Administered?: Yes - Reproductive History Patient is a Female of Child Bearing Age (11 -55 yrs old): No - Smoking Cessation Smoking history: Never smoked Have you smoked in the past 12 months: No Aproximately how many cigarettes per day: 0 Cigars Per Day: 0 Hx Chewing Tobacco Use: No - Substance & Tx. History Hx Alcohol Use: Yes Hx Substance Use: Yes Substance Use Type: Alcohol, Heroin Hx Substance Use Treatment: Yes (DETOX ) - Substances Abused Alcohol Route: Oral Frequency: Daily Amount used: 1/2 PINT OF LIQUOR + 1 6 PACK OF BEER Age of first use: 18 Date of Last Use: 10/15/16 Family Disease History - Family Disease History Family Disease History: Diabetes: Mother (htn), Heart Disease: Mother, Respiratory: Sister (PN ), Other: Grandparent (htn), Father (htn ) Admission Physical Exam [facility] - Vital Signs Vital Signs: Vital Signs - 24 hr 10/15/16 19:00 Temperature 95.7 F L Pulse Rate 78 Respiratory 20 Rate Blood Pressure 179/106 - Physical General Appearance: Yes: Disheveled, Alcohol on Breath, Intoxicated, Irritable, Anxious HEENTM: Yes: Hearing grossly Normal, Normal ENT Inspection, Normocephalic, Normal Voice Respiratory: Yes: Chest Non-Tender, Lungs Clear, Normal Breath Sounds, No Respiratory Distress, No Accessory Muscle Use Neck: Yes: No masses,lesions,Nodules, Trachea in good position Breast: Yes: Breast Exam Deferred Cardiology: Yes: Regular Rhythm, Regular Rate, S1, S2 Abdominal: Yes: Non Tender, Flat Genitourinary: Yes: Other (NO COMPLAINTS REPORTED) Back: Yes: Normal Inspection Musculoskeletal: Yes: Other (WEARS A BRACE TO RIGHT FOOT.) Extremities: Yes: Tremors Neurological: Yes: Alert, Normal Mood/Affect, Normal Response Integumentary: Yes: Dry, Warm Lymphatic: Yes: Within Normal Limits - Diagnostic (1) Alcohol dependence with uncomplicated withdrawal Current Visit: Yes Status: Chronic (2) Opioid dependence on agonist therapy Current Visit: Yes Status: Chronic (3) COPD (chronic obstructive pulmonary disease) Current Visit: Yes Status: Chronic Qualifiers: COPD type: chronic bronchitis Chronic bronchitis type: simple Qualified Code(s): J41.0 - Simple chronic bronchitis (4) Essential hypertension Current Visit: Yes Status: Chronic (5) Type II diabetes mellitus Current Visit: Yes Status: Chronic Qualifiers: Diabetes mellitus complication status: without complication Diabetes mellitus joint terminal attack controller insulin use: with joint terminal attack controller use Qualified Code(s): E11.9 - Type 2 diabetes mellitus without complications Cleared for Admission [facility] - Detox or Rehab [facility] Level of Care: Medically Managed Detox Regimen/Protocol: Librium [facility] Breath Alcohol Content Breath Alcohol Content: 0.103 Urine Drug Screen - Results Drug Screen Negative: No Urine Drug Screen Results: YAMILA-Cocaine, BZO-Benzodiazepines, MTD-Methadone, TCA- Tricyclic Antidepress
[2016-10-15] MEDS ORDERED: chlordiazePOXIDE HCL 25 MG CAPSULE PO ONE (20:35)
[2016-10-15] MEDS ORDERED: MENTHOL/PHENOL 1 EACH UD MM PRN (20:35)
[2016-10-15] MEDS ORDERED: hydrOXYzine PAMOATE 50 MG CAPSULE (FP) PO PRN (20:35)
[2016-10-15] MEDS ORDERED: IBUPROFEN 400 MG TABLET (FP) PO PRN (20:35)
[2016-10-15] MEDS ORDERED: chlordiazePOXIDE HCL 25 MG CAPSULE PO PRN (20:35)
[2016-10-15] MEDS ORDERED: MAGNESIUM HYDROX 2400MG/30ML ORAL SUSPENSION 30 ML CUP PO PRN (20:35)
[2016-10-15] MEDS ORDERED: P-EPHED 60MG/TRIPROLIDI 2.5MG TABLET PO PRN (20:35)
[2016-10-15] MEDS ORDERED: ACETAMINOPHEN 325 MG TABLET (FP) PO PRN (20:35)
[2016-10-15] MEDS ORDERED: diphenhydrAMINE HCL 50 MG CAPSULE PO PRN (20:35)
[2016-10-15] MEDS ORDERED: MAG HYDROX/AL HYDROX/SIMETH 30 ML UNIT-DOSE CUP PO PRN (20:35)
[2016-10-15] MEDS ORDERED: LOPERAMIDE HCL 2 MG CAPSULE PO PRN (20:35)
[2016-10-15] MEDS ORDERED: guaiFENesin/D-METHORPHAN HB 10 ML UNIT-DOSE CUPS PO PRN (20:35)
[2016-10-15] MEDS ORDERED: MAGNESIUM CITRATE 300 ML BOTTLE PO PRN (20:35)
[2016-10-15] MEDS ORDERED: ALBUTEROL SO4 6.7 GM HFA INHALER IH PRN (20:36)
[2016-10-15] MEDS ORDERED: INSULIN (NOVOLOG) ASPART 100 UNITS/ML 10ML VIAL ONE (21:47)
[2016-10-15] MEDS: THIAMINE HCL 100 MG TABLET (FP) PO SCH (21:48)
[2016-10-15] MEDS: cloNIDine HCL 0.1 MG TABLET PO SCH (21:49)
[2016-10-15] MEDS: ATORVASTATIN CA 40 MG TABLET (FP) PO SCH (21:49)
[2016-10-15] MEDS: RANITIDINE HCL 150 MG TABLET (FP) PO SCH (21:49)
[2016-10-15] MEDS: DOCUSATE SODIUM 100 MG CAPSULE (FP) PO SCH (21:49)
[2016-10-15] MEDS: FERROUS SO4 325 MG TABLET (FP) PO SCH (21:49)
[2016-10-15] MEDS: INSULIN SLIDING SCALE (NOVOLOG) 1 VIAL SQ SCH (21:54)
[2016-10-15] MEDS: INSULIN DETEMIR 100 UNITS/ML MDV SQ SCH (21:58)
[2016-10-15] MEDS: HEPARIN NA (PORCINE) 5,000 UNITS/ML 1ML VIAL SQ SCH (22:30)
[2016-10-15 23:29] LABS: URINE APPEARANCE CLEAR; URINE BILIRUBIN NEGATIVE (NEGATIVE); URINE BLOOD NEGATIVE (NEGATIVE); URINE COLOR LTYELLOW; URINE GLUCOSE (UA) 1+ (NEGATIVE); URINE KETONE NEGATIVE (NEGATIVE); URINE LEUK ESTERASE NEGATIVE (NEGATIVE); URINE NITRITE NEGATIVE (NEGATIVE); URINE PROTEIN NEGATIVE (NEGATIVE); URINE UROBILINOGEN NEGATIVE E.U./dl (0.2-1.0)
[2016-10-15] MEDS: hydrALAZINE HCL 50 MG TABLET (FP) PO SCH (23:43)
[2016-10-15] MEDS: chlordiazePOXIDE HCL 25 MG CAPSULE PO SCH (23:44)
[2016-10-15] MEDS: BUDESONIDE/FORMETEROL FUMARATE 160/4.5 mcg INHALER IH SCH (23:44)
[2016-10-16] MEDS: hydrALAZINE HCL 50 MG TABLET (FP) PO SCH ×3 (05:30→22:38)
[2016-10-16] MEDS: cloNIDine HCL 0.1 MG TABLET PO SCH ×3 (05:31→22:38)
[2016-10-16] MEDS: chlordiazePOXIDE HCL 25 MG CAPSULE PO SCH ×4 (05:33→22:39)
[2016-10-16] MEDS ORDERED: metFORMIN HCL 500 MG TABLET (FP) PO SCH (07:00)
[2016-10-16] MEDS: HEPARIN NA (PORCINE) 5,000 UNITS/ML 1ML VIAL SQ SCH ×2 (07:23→14:58)
[2016-10-16] MEDS: DOCUSATE SODIUM 100 MG CAPSULE (FP) PO SCH ×3 (07:26→22:39)
[2016-10-16] MEDS: INSULIN SLIDING SCALE (NOVOLOG) 1 VIAL SQ SCH ×3 (07:27→16:56)
[2016-10-16] MEDS ORDERED: METHADONE HCL 10 MG TABLET PO ONE (08:42)
[2016-10-16] MEDS: INSULIN (NOVOLOG) ASPART 100 UNITS/ML 10ML VIAL SQ SCH ×3 (08:43→16:55)
[2016-10-16] MEDS ORDERED: ASPIRIN COATED 81 MG TABLET.EC PO SCH (10:00)
[2016-10-16] MEDS ORDERED: PRENATAL VITAMINS W/ FOLIC ACID TABLET (FP) PO SCH (10:00)
[2016-10-16] MEDS ORDERED: predniSONE 20 MG TABLET (UD) PO SCH (10:00)
[2016-10-16] MEDS ORDERED: amLODIPine BESYLATE 10 MG TABLET (FP) PO SCH (10:00)
[2016-10-16] MEDS ORDERED: AZITHROMYCIN 250 MG TABLET (FP) PO SCH (10:00)
--- NOTE | 2016-10-16 10:01 | CONSULT ---
[facility] Psychiatric Consult - Data Date of interview: 10/16/16 Admission source: [facility] Identifying data: Another admission to [facility] for this 61 y/o AA male seeking detox treatment on for alcohol and opioid dependence.Patient is single,a father of one,domiciled,unemployed and supported on welfare. Substance Abuse History: - Smoking Cessation. Smoking history: Never smoked. Have you smoked in the past 12 months: No. Aproximately how many cigarettes per day: 0. Cigars Per Day: 0. Hx Chewing Tobacco Use: No. - Substance & Tx. History. Hx Alcohol Use: Yes. Hx Substance Use: Yes. Substance Use Type: Alcohol, Heroin. Hx Substance Use Treatment: Yes (DETOX ). - Substances Abused. Alcohol. Route: Oral. Frequency: Daily. Amount used: 1/2 PINT OF LIQUOR + 1 6 PACK OF BEER. Age of first use: 18. Date of Last Use: 10/15/16. Confirmed by patient. Medical History: Hypertension,insulin-dependent diabetes mellitus,arthritis,COPD ,GERD,hypercholesterolemia,myocardial infarction,left inguinal herniorraphy ( 1979) and a past history of syphilis (treated).Additional history of foot surgery (corn removal from right great toe) in 2016.Patient wears a brace on right foot.Ambulates with a cane. Psychiatric History: No history of psychiatric hospitalizations.Mr Barth is on methadone maintenance (30 mg/day) at the [facility] MMTP program ([address] [place] [address] in the [place].No reported history of suicide attempts. Physical/Sexual Abuse/Trauma History: Patient denies. Additional Comment: Urine Drug Screen Results: YAMILA-Cocaine, BZO-Benzodiazepines , MTD-Methadone, TCA-Tricyclic Antidepressant.Noted. Mental Status Exam - Mental Status Exam Alert and Oriented to: Time, Place, Person Cognitive Function: Grossly Intact Patient Appearance: Unkempt, Disheveled Mood: Anxious, Apprehensive Affect: Mood Congruent Patient Behavior: Fatigued, Appropriate, Cooperative Speech Pattern: Clear Voice Loudness: Normal Thought Process: Goal Oriented Thought Disorder: Not Present Hallucinations: Denies Suicidal Ideation: Denies Homicidal Ideation: Denies Insight/Judgement: Poor Sleep: Poorly, Difficulty falling asleep Appetite: Good Muscle strength/Tone: Normal Gait/Station: Other (ambulates with a cane.) Psychiatric Findings - Problem List ([place] 1, 2,3) (1) Alcohol dependence with uncomplicated withdrawal Current Visit: Yes Status: Acute (2) Opioid dependence on agonist therapy Current Visit: Yes Status: Acute (3) Drug-induced mood disorder Current Visit: Yes Status: Acute (4) Asthma Current Visit: Yes Status: Chronic Qualifiers: Asthma severity: mild persistent Asthma complication type: with status asthmaticus Qualified Code(s): J45.32 - Mild persistent asthma with status asthmaticus (5) Chronic bronchitis Current Visit: Yes Status: Chronic Qualifiers: Chronic bronchitis type: simple Qualified Code(s): J41.0 - Simple chronic bronchitis (6) GERD (gastroesophageal reflux disease) Current Visit: Yes Status: Chronic Qualifiers: Esophagitis presence: without esophagitis Qualified Code(s): K21.9 - Gastro-esophageal reflux disease without esophagitis (7) COPD (chronic obstructive pulmonary disease) Current Visit: Yes Status: Chronic Qualifiers: COPD type: chronic bronchitis Chronic bronchitis type: simple Qualified Code(s): J41.0 - Simple chronic bronchitis (8) Essential hypertension Current Visit: Yes Status: Chronic (9) Insomnia Current Visit: Yes Status: Chronic Qualifiers: Insomnia type: primary Qualified Code(s): F51.01 - Primary insomnia - Initial Treatment Plan Initial Treatment Plan: Previous records are reviewed.Psychoeducation.Detoxification.Medication : seroquel 100 mg po hs ( patient's request).Side effects/benefits discussed with the patient.Mr Barth agrees with this careplan.Observation.
[2016-10-16] MEDS: BUDESONIDE/FORMETEROL FUMARATE 160/4.5 mcg INHALER IH SCH ×2 (10:22→23:14)
[2016-10-16] MEDS: FERROUS SO4 325 MG TABLET (FP) PO SCH ×2 (10:23→22:39)
[2016-10-16] MEDS: RANITIDINE HCL 150 MG TABLET (FP) PO SCH ×2 (10:23→22:39)
[2016-10-16 10:41] LABS: MCH 27.8 pg (25.7-33.7); MCHC 32.1 g/dl (32.0-35.9); MEAN CELL VOLUME 86.6 fl (80-96); MEAN PLT VOLUME 8.9 fl (7.5-11.1); PLATELET COUNT 210 K/MM3 (134-434); RDW 14.9 % (11.9-15.9); WHITE BLOOD COUNT 4.5 K/mm3 (4.0-10.0)
[2016-10-16 11:06] LABS: ALBUMIN 2.7 g/dl (3.4-5.0); ALK PHOS 93 U/L (45-117); ANION GAP 9 (8-16); BILIRUBIN,TOTAL 0.4 mg/dL (0.2-1.0); CALCIUM 8.8 mg/dL (8.5-10.1); CO2 27 mmol/L (21-32); COCKROFT - GAULT 119.91; CREATININE 0.8 mg/dL (0.7-1.3); SGOT/AST 16 U/L (15-37); SGPT/ALT 14 U/L (12-78); TOT PROT 7.2 g/dl (6.4-8.2)
--- NOTE | 2016-10-16 11:12 | PN ---
[facility] CIWA - CIWA Score Nausea/Vomitin-No Nausea/No Vomiting Muscle Tremors: 4-Moderate,w/Arms Extend Anxiety: 4-Mod. Anxious/Guarded Agitation: 4-Moderately Restless Paroxysmal Sweats: 1-Minimal Palms Moist Orientation: 0-Oriented Tacttile Disturbances: 3-Moderate Itch/Numb/Burn Auditory Disturbances: 0-None Visual Disturbances: 0-None Headache: 0-None Present CIWA-Ar Total Score: 16 S Progress Note (SOAP) Subjective: ANXIETY,IRRITABILITY,AGITATIONS,ARGUMENTATIVE WITH STAFF. SOMETIMES WITH POOR IMPULSE CONTROL. Objective: 10/16/16 11:11 Vital Signs Temperature 97.5 F L 10/16/16 09:38 Pulse Rate 75 10/16/16 09:38 Respiratory Rate 20 10/16/16 09:38 Blood Pressure 105/70 10/16/16 09:38 O2 Sat by Pulse Oximetry (%) Laboratory Last Values WBC 4.5 K/mm3 (4.0-10.0) 10/16/16 07:00 RBC 4.22 M/mm3 (4.00-5.60) 10/16/16 07:00 Hgb 11.7 GM/dL (11.7-16.9) 10/16/16 07:00 Hct 36.5 % (35.4-49) 10/16/16 07:00 MCV 86.6 fl (80-96) 10/16/16 07:00 MCHC 32.1 g/dl (32.0-35.9) 10/16/16 07:00 RDW 14.9 % (11.9-15.9) 10/16/16 07:00 Plt Count 210 K/MM3 (134-434) 10/16/16 07:00 MPV 8.9 fl (7.5-11.1) 10/16/16 07:00 POC Glucometer 301 UNITS (()) 10/16/16 05:29 Urine Color Ltyellow 10/15/16 23:10 Urine Appearance Clear 10/15/16 23:10 Urine pH 5.0 (5.0-8.0) 10/15/16 23:10 Ur Specific [place] 1.012 (1.001-1.035) 10/15/16 23:10 Urine Protein Negative (NEGATIVE) 10/15/16 23:10 Urine Glucose (UA) 1+ (NEGATIVE) H 10/15/16 23:10 Urine Ketones Negative (NEGATIVE) 10/15/16 23:10 Urine Blood Negative (NEGATIVE) 10/15/16 23:10 Urine Nitrite Negative (NEGATIVE) 10/15/16 23:10 Urine Bilirubin Negative (NEGATIVE) 10/15/16 23:10 Urine Urobilinogen Negative E.U./dl (0.2-1.0) 10/15/16 23:10 Ur Leukocyte Esterase Negative (NEGATIVE) 10/15/16 23:10 OTHER LAB RESULTS PENDING Assessment: 10/16/16 11:11 WITHDRAWAL SX Plan: CONTINUE DETOX
[2016-10-16 11:53] LABS: GLUCOSE,RANDOM 307 mg/dL (74-106)
[2016-10-16] MEDS ORDERED: INSULIN (NOVOLOG) ASPART 100 UNITS/ML 10ML VIAL SQ ONE (21:59)
[2016-10-16] MEDS ORDERED: QUEtiapine FUMARATE 100 MG TABLET (FP) PO SCH (22:00)
[2016-10-16] MEDS: INSULIN DETEMIR 100 UNITS/ML MDV SQ SCH (22:00)
[2016-10-16] MEDS: ATORVASTATIN CA 40 MG TABLET (FP) PO SCH (22:39)
[2016-10-16] MEDS: THIAMINE HCL 100 MG TABLET (FP) PO SCH (23:14)
[2016-10-16] MEDS ORDERED: INSULIN (NOVOLOG) ASPART 100 UNITS/ML 10ML VIAL ONE (23:23)
[2016-10-17] MEDS: cloNIDine HCL 0.1 MG TABLET PO SCH (05:35)
[2016-10-17] MEDS: hydrALAZINE HCL 50 MG TABLET (FP) PO SCH (05:35)
[2016-10-17] MEDS: DOCUSATE SODIUM 100 MG CAPSULE (FP) PO SCH (05:35)
[2016-10-17] MEDS: chlordiazePOXIDE HCL 25 MG CAPSULE PO SCH (05:35)
[2016-10-17] MEDS ORDERED: METHADONE HCL 10 MG TABLET PO SCH (06:00)
[2016-10-17 06:57] VITALS: BP 148/96; PULSE 83; TEMP 97.1
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
--- NOTE | 2016-10-17 08:29 | EKG ---
Test Reason : Blood Pressure : / mmHG Vent. Rate : 084 BPM Atrial Rate : 084 BPM P-R Int : 238 ms QRS Dur : 092 ms QT Int : 380 ms P-R-T Axes : 062 014 -16 degrees QTc Int : 449 ms SINUS RHYTHM WITH 1ST DEGREE A-V BLOCK NONSPECIFIC T WAVE ABNORMALITY ABNORMAL ECG WHEN COMPARED WITH ECG OF 27-JUL-2016 23:38, [place] INTERVAL HAS INCREASED Confirmed by SEGUNDO CROCKER, DANN ([id number]) on 10/17/2016 8:28:52 AM Referred By: Confirmed By:DANN RAYMOND MD
[2016-10-17] MEDS ORDERED: chlordiazePOXIDE 5 MG CAPSULE PO SCH (23:00)
[2016-10-18] MEDS ORDERED: chlordiazePOXIDE HCL 10 MG CAPSULE PO SCH (23:00)
--- NOTE | 2016-11-25 15:39 | DS ---
[facility] Detox Discharge Summary Admission Date: 10/15/16 Discharge Date: 10/17/16 - History Present History: Alcohol Dependence, MMTP Pertinent Past History: Type II DM HTN GERD - Physical Exam Results Vital Signs: Vital Signs Temperature 97.1 F L 10/17/16 06:57 Pulse Rate 83 10/17/16 06:57 Respiratory Rate 18 10/17/16 06:57 Blood Pressure 148/96 10/17/16 06:57 O2 Sat by Pulse Oximetry (%) Pertinent Admission Physical Exam Findings: Withdrawal sx. Laboratory Last Values WBC 4.5 K/mm3 (4.0-10.0) 10/16/16 07:00 RBC 4.22 M/mm3 (4.00-5.60) 10/16/16 07:00 Hgb 11.7 GM/dL (11.7-16.9) 10/16/16 07:00 Hct 36.5 % (35.4-49) 10/16/16 07:00 MCV 86.6 fl (80-96) 10/16/16 07:00 MCHC 32.1 g/dl (32.0-35.9) 10/16/16 07:00 RDW 14.9 % (11.9-15.9) 10/16/16 07:00 Plt Count 210 K/MM3 (134-434) 10/16/16 07:00 MPV 8.9 fl (7.5-11.1) 10/16/16 07:00 Sodium 133 mmol/L (136-145) L 10/16/16 07:00 Potassium 4.3 mmol/L (3.5-5.1) 10/16/16 07:00 Chloride 97 mmol/L (98-107) L 10/16/16 07:00 Carbon Dioxide 27 mmol/L (21-32) 10/16/16 07:00 Anion Gap 9 (8-16) 10/16/16 07:00 BUN 11 mg/dL (7-18) 10/16/16 07:00 Creatinine 0.8 mg/dL (0.7-1.3) 10/16/16 07:00 Creat Clearance w eGFR > 60 (>60) 10/16/16 07:00 POC Glucometer 333 UNITS (()) 10/17/16 05:37 Random Glucose 307 mg/dL (74-106) H* D 10/16/16 07:00 Calcium 8.8 mg/dL (8.5-10.1) 10/16/16 07:00 Total Bilirubin 0.4 mg/dL (0.2-1.0) 10/16/16 07:00 AST 16 U/L (15-37) D 10/16/16 07:00 ALT 14 U/L (12-78) D 10/16/16 07:00 Alkaline Phosphatase 93 U/L (45-117) 10/16/16 07:00 Total Protein 7.2 g/dl (6.4-8.2) 10/16/16 07:00 Albumin 2.7 g/dl (3.4-5.0) L 10/16/16 07:00 Urine Color Ltyellow 10/15/16 23:10 Urine Appearance Clear 10/15/16 23:10 Urine pH 5.0 (5.0-8.0) 10/15/16 23:10 Ur Specific [place] 1.012 (1.001-1.035) 10/15/16 23:10 Urine Protein Negative (NEGATIVE) 10/15/16 23:10 Urine Glucose (UA) 1+ (NEGATIVE) H 10/15/16 23:10 Urine Ketones Negative (NEGATIVE) 10/15/16 23:10 Urine Blood Negative (NEGATIVE) 10/15/16 23:10 Urine Nitrite Negative (NEGATIVE) 10/15/16 23:10 Urine Bilirubin Negative (NEGATIVE) 10/15/16 23:10 Urine Urobilinogen Negative E.U./dl (0.2-1.0) 10/15/16 23:10 Ur Leukocyte Esterase Negative (NEGATIVE) 10/15/16 23:10 RPR Titer Nonreactive (NONREACTIVE) 10/16/16 07:00 labs noted - Treatment Patient has Accepted a Rehab Referral to: [facility] - Medication Discharge Medications: Ambulatory Orders Insulin (Novolog) [Novolog Flexpen -] 10 units SQ TID 01/09/12 Aspirin Coated [Ecotrin -] 81 mg PO DAILY 09/21/15 Albuterol Sulfate Inhaler - [Ventolin HFA Inhaler -] 2 inh PO PRN PRN #1 inhaler 09/25/15 Insulin Glargine,Hum.rec.anlog [Lantus Solostar PEN -] 20 units SQ HS #1 vial Clonidine HCl [Catapres] 0.3 mg PO TID 11/20/15 Metformin HCl [Glucophage -] 500 mg PO ACBK 11/20/15 Quetiapine Fumarate [Seroquel] 100 tab PO HS #30 tablet 02/24/16 Quetiapine Fumarate [Seroquel] 100 tab PO HS #30 tablet 06/08/16 Quetiapine Fumarate [Seroquel] 100 mg PO HS #30 tablet 07/31/16 Amlodipine Besylate 10 mg PO DAILY 10/15/16 Atorvastatin Calcium 40 mg PO HS 10/15/16 Azithromycin 500 mg PO DAILY 10/15/16 Budesonide/Formeterol Fumarate [SYMBICORT 160/4.5mcg -] 2 inh PO BID 10/15/16 Docusate Sodium [Colace -] 100 mg PO TID 10/15/16 Ergocalciferol (Vitamin D2) [Vitamin D2] 400 unit PO DAILY 10/15/16 Ferrous Sulfate 325 mg PO BID 10/15/16 Gabapentin 100 mg PO TID 10/15/16 Heparin Sod,Porcine/0.9 % NaCl [Heparin-Ns 1,000 Unit/1,000 ml] 5,000 unit IV TID 10/15/16 Hydralazine HCl 100 mg PO TID 10/15/16 Ipratropium 0.02 0.5 mg IH QID PRN 10/15/16 Prednisone [Deltasone] 40 mg PO DAILY 10/15/16 Ranitidine [Zantac -] 150 mg PO BID 10/15/16 Quetiapine Fumarate [Seroquel] 100 mg PO HS #30 tablet MDD 100 mg 10/16/16 - Diagnosis (1) Alcohol dependence with uncomplicated withdrawal Status: Acute (2) Drug-induced mood disorder Status: Acute (3) Opioid dependence on agonist therapy Status: Acute (4) Asthma Status: Chronic Qualifiers: Asthma severity: mild persistent Asthma complication type: with status asthmaticus Qualified Code(s): J45.32 - Mild persistent asthma with status asthmaticus (5) Essential hypertension Status: Chronic (6) GERD (gastroesophageal reflux disease) Status: Chronic Qualifiers: Esophagitis presence: without esophagitis Qualified Code(s): K21.9 - Gastro-esophageal reflux disease without esophagitis (7) Type II diabetes mellitus Status: Chronic Qualifiers: Diabetes mellitus complication status: without complication 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
== END 2016-10-17 06:15 | disposition home or self-care (01) | DRG 773 ==
LOC: YASAS 16:45 → Y3N 19:47
PROVIDERS: ADMIT Internal Medicine; ATTEND Internal Medicine
PROC: HZ2ZZZZ Detoxification Services for Substance Abuse Treatment (ICD-10-PCS; principal; 2016-10-15)
DX: F10.230 Alcohol dependence with withdrawal, uncomplicated (principal); F11.20 Opioid dependence, uncomplicated; F19.24 Other psychoactive substance dependence with psychoactive substance-induced mood disorder; F51.01 Primary insomnia; I10 Essential (primary) hypertension; I25.2 Old myocardial infarction; E11.9 Type 2 diabetes mellitus without complications; Z79.4 Long term (current) use of insulin; M19.90 Unspecified osteoarthritis, unspecified site; F41.0 Panic disorder [episodic paroxysmal anxiety]; K21.9 Gastro-esophageal reflux disease without esophagitis; R26.2 Difficulty in walking, not elsewhere classified; Z87.438 Personal history of other diseases of male genital organs; F91.8 Other conduct disorders
CPT/HCPCS: 36415; 80053; 81003; 85027; 86593; 93005; 93010; J1644

== ENCOUNTER 2017-07-24 13:21 | Inpatient (IN) | payer OTHER ==
[2017-07-24 15:13] VITALS: BMI 28.3
--- NOTE | 2017-07-24 15:32 | HP ---
CIWA Score - CIWA Score Nausea/Vomitin Muscle Tremors: 3 Anxiety: 3 Agitation: 3 Paroxysmal Sweats: 2 Orientation: 0-Oriented Tacttile Disturbances: 2-Mild Itch/Numbness/Burn Auditory Disturbances: 2-Mild Harshness/Frighten Visual Disturbances: 0-None Headache: 2-Mild CIWA-Ar Total Score: 20 Admission ROS BHS - HPI Chief Complaint: I NEED HELP TO STOP DRINKING ALCOHOL Allergies/Adverse Reactions: Allergies Allergy/AdvReac Type Severity Reaction Status Date / Time lisinopril AdvReac Severe Swelling Verified 07/24/17 15:28 of the Face History of Present Illness: THIS 62 YEARS OLD MALE WITH ALCOHOL DEPENDENCE,SEEKING DETOX,WITHDRAWAL SYMPTOM, LAST TREATMENT 10/15/16,TO 10/17/16, NOT COMPLETE LONGEST PERIOD OF SOBRIETY 7 MONTHS - Ebola screening Have you traveled outside of the country in the last 21 days: No Have you had contact with anyone from an Ebola affected area: No Have you been sick,other than usual withdrawal symptoms: No Do you have a fever: No - Review of Systems Constitutional: Loss of Appetite, Malaise, Night Sweats, Changes in sleep, Weakness, Unintentional Wgt. Loss EENT: reports: Tearing, Nose Congestion Respiratory: reports: No Symptoms reported, Other (COPD) Cardiac: reports: No Symptoms Reported GI: reports: Diarrhea, Nausea, Vomiting, Abdominal cramping : reports: No Symptoms Reported Musculoskeletal: reports: Back Pain, Muscle Pain Integumentary: reports: Dryness Neuro: reports: Headache, Tremors Endocrine: reports: No Symptoms Reported Hematology: reports: No Symptoms Reported Psychiatric: reports: Anxious, Depressed (INSONIA) Patient History - Patient Medical History Hx Anemia: No Hx Asthma: No Hx Chronic Obstructive Pulmonary Disease (COPD): Yes (ON ALBUTEROL INHALER) Hx Cancer: No Hx Cardiac Disorders: No Hx Congestive Heart Failure: No Hx Hypertension: Yes (ON MED) Hx Hypercholesterolemia: No Hx Pacemaker: No HX Cerebrovascular Accident: No Hx Seizures: No Hx Dementia: No Hx Diabetes: Yes (IDDM) Hx Gastrointestinal Disorders: No Hx Liver Disease: No Hx Genitourinary Disorders: No Hx Sexually Transmitted Disorders: No Hx Renal Disease (ESRD): No Hx Thyroid Disease: No Hx Human Immunodeficiency Virus (HIV): No Hx Hepatitis C: No Hx Depression: Yes (ANXIETY,DEPRESSION,INSOMNIA) Hx Suicide Attempt: No Hx Bipolar Disorder: No Hx Schizophrenia: No Other Medical History: NO SUICIDAL,NO HOMICIDAL - Patient Surgical History Past Surgical History: Yes Hx Neurologic Surgery: No Hx Cataract Extraction: No Hx Cardiac Surgery: No Hx Lung Surgery: No Hx Breast Surgery: No Hx Breast Biopsy: No Hx Abdominal Surgery: Yes (left inguinal hernia repair in 1979) Hx Appendectomy: No Hx Cholecystectomy: No Hx Genitourinary Surgery: No Hx Section: No Hx Orthopedic Surgery: No Other Surgical History: R FOOT CORN REMOVAL ON GREAT TOE 05/2016 Anesthesia Reaction: No - PPD History Previous Implant?: Yes Date: 07/29/16 Results: 0 MM PPD to be Administered?: Yes - Smoking Cessation Smoking history: Never smoked Have you smoked in the past 12 months: No Aproximately how many cigarettes per day: 0 Cigars Per Day: 0 Hx Chewing Tobacco Use: No - Substance & Tx. History Hx Alcohol Use: Yes Hx Substance Use: No Substance Use Type: Alcohol Hx Substance Use Treatment: Yes ([facility] TO 10/17/16 NOT COMPLETED) - Substances Abused Alcohol Route: Oral Frequency: Daily Amount used: 1/2 pint of nafisa and 6 packs 16oz Age of first use: 18 Date of Last Use: 07/24/17 Family Disease History - Family Disease History Family Disease History: Diabetes: Mother (htn), Heart Disease: Mother, Respiratory: Sister (PN ), Other: Grandparent (htn), Father (htn ) Admission Physical Exam [facility] - Vital Signs Vital Signs: Vital Signs - 24 hr 07/24/17 15:11 Temperature 96 F L Pulse Rate 110 H Respiratory 20 Rate Blood Pressure 143/114 - Physical General Appearance: Yes: Moderate Distress, Tremorous, Irritable, Sweating, Anxious HEENTM: Yes: Normal ENT Inspection, RAJWINDER, Pharynx Normal Respiratory: Yes: Within Normal Limits, Lungs Clear, Normal Breath Sounds Neck: Yes: Within Normal Limits, Supple, Trachea in good position Breast: Yes: Within Normal Limits Cardiology: Yes: Within Normal Limits, Regular Rhythm, S1, S2 Abdominal: Yes: Within Normal Limits, Normal Bowel Sounds, Non Tender, Flat, Soft, Surgical Scar (LEFT INGUINAL HERNIA LEFT 1979) Genitourinary: Yes: Within Normal Limits Back: Yes: Muscle Spasm Musculoskeletal: Yes: Back pain, Muscle Pain Extremities: Yes: Tremors, Other (CORN REMOVAL RIGHT FOOT) Neurological: Yes: visual effects editor II-XII NML intact, Fully Oriented, Alert, Motor Strength 5/5, Normal Mood/Affect Integumentary: Yes: Dry Lymphatic: Yes: Within Normal Limits - Diagnostic (1) Alcohol dependence with uncomplicated withdrawal Current Visit: Yes Status: Acute (2) Opioid dependence on agonist therapy Current Visit: Yes Status: Acute (3) Asthma Current Visit: No Status: Chronic Qualifiers: Asthma severity: mild persistent Asthma complication type: with status asthmaticus (4) Essential hypertension Current Visit: No Status: Chronic (5) GERD (gastroesophageal reflux disease) Current Visit: No Status: Chronic Qualifiers: Esophagitis presence: without esophagitis Qualified Code(s): K21.9 - Gastro -esophageal reflux disease without esophagitis (6) Insomnia Current Visit: Yes Status: Chronic Qualifiers: Insomnia type: primary Qualified Code(s): F51.01 - Primary insomnia (7) Insomnia secondary to depression with anxiety Current Visit: Yes Status: Acute (8) IDDM (insulin dependent diabetes mellitus) Current Visit: Yes Status: Acute Cleared for Admission S - Detox or Rehab [facility] Level of Care: Medically Managed Detox Regimen/Protocol: Librium [facility] Breath Alcohol Content Breath Alcohol Content: 0.084 Urine Drug Screen - Results Drug Screen Negative: No Urine Drug Screen Results: MTD-Methadone, TCA-Tricyclic Antidepress
[2017-07-24] MEDS ORDERED: LOPERAMIDE HCL 2 MG CAPSULE PO PRN (15:48)
[2017-07-24] MEDS ORDERED: guaiFENesin/D-METHORPHAN HB 10 ML UNIT-DOSE CUPS PO PRN (15:48)
[2017-07-24] MEDS ORDERED: MAGNESIUM HYDROX 2400MG/30ML ORAL SUSPENSION 30 ML CUP PO PRN (15:48)
[2017-07-24] MEDS ORDERED: MAG HYDROX/AL HYDROX/SIMETH 30 ML UNIT-DOSE CUP PO PRN (15:48)
[2017-07-24] MEDS ORDERED: MENTHOL/PHENOL 1 EACH UD MM PRN (15:48)
[2017-07-24] MEDS ORDERED: MAGNESIUM CITRATE 300 ML BOTTLE PO PRN (15:48)
[2017-07-24] MEDS ORDERED: chlordiazePOXIDE HCL 25 MG CAPSULE PO PRN (15:48)
[2017-07-24] MEDS ORDERED: P-EPHED 60MG/TRIPROLIDI 2.5MG TABLET PO PRN (15:48)
[2017-07-24] MEDS ORDERED: IBUPROFEN 400 MG TABLET (FP) PO PRN (15:48)
[2017-07-24] MEDS ORDERED: hydrOXYzine PAMOATE 25 MG CAPSULE (FP) PO PRN (15:48)
[2017-07-24] MEDS ORDERED: ALBUTEROL SO4 18 GM HFA INHALER IH PRN (15:54)
[2017-07-24] MEDS ORDERED: chlordiazePOXIDE HCL 25 MG CAPSULE PO ONE (17:15)
--- NOTE | 2017-07-24 17:21 | CONSULT ---
[facility] Psychiatric Consult - Data Date of interview: 07/24/17 Admission source: [facility] Identifying data: This is one of several admissions to [facility] for this 62 y/ o AA male seeking detox treatment on for alcohol and opioid dependence.Patient is single,a father of one,domiciled,unemployed and supported on welfare. Substance Abuse History: Confirmed by patient in this interview.See details in current [facility] report : Smoking history: Never smoked. Have you smoked in the past 12 months: No. Aproximately how many cigarettes per day: 0. Cigars Per Day: 0. Hx Chewing Tobacco Use: No. - Substance & Tx. History. Hx Alcohol Use : Yes. Hx Substance Use: No. Substance Use Type: Alcohol. Hx Substance Use Treatment: Yes ([facility] TO 10/17/16 NOT COMPLETED) Medical History: Hypertension,insulin-dependent diabetes mellitus,arthritis,COPD ,GERD,hypercholesterolemia,myocardial infarction,left inguinal herniorraphy ( 1979) and a past history of syphilis (treated).Additional history of foot surgery (corn removal from right great toe) in 2015.Observed walking without a cane at this time. Psychiatric History: Patient denies history of psychiatric hospitalizations.Mr Barth is on methadone maintenance (80 mg/day) at the [facility] MMTP program ( [address] [place] [address]) in the [place].No reported history of suicide attempts. Physical/Sexual Abuse/Trauma History: Patient denies history of abuse. Additional Comment: Urine Drug Screen Results: MTD-Methadone, TCA-Tricyclic Antidepressant.Noted. Mental Status Exam - Mental Status Exam Alert and Oriented to: Time, Place, Person Cognitive Function: Good Patient Appearance: Unkempt, Disheveled Mood: Hopeful, Euthymic Affect: Appropriate, Normal Range Patient Behavior: Fatigued, Appropriate, Cooperative Speech Pattern: Clear, Appropriate Voice Loudness: Normal Thought Process: Intact, Goal Oriented Thought Disorder: Not Present Hallucinations: Denies Suicidal Ideation: Denies Homicidal Ideation: Denies Insight/Judgement: Poor Sleep: Poorly (wants trazodone), Difficulty falling asleep Appetite: Good Muscle strength/Tone: Normal Gait/Station: Other (walks with a pronounced limp) Psychiatric Findings - Problem List ([place] 1, 2,3) (1) Alcohol dependence with uncomplicated withdrawal Current Visit: Yes Status: Acute (2) Opioid dependence on agonist therapy Current Visit: Yes Status: Acute (3) Insomnia Current Visit: Yes Status: Chronic Qualifiers: Insomnia type: primary Qualified Code(s): F51.01 - Primary insomnia - Initial Treatment Plan Initial Treatment Plan: Previous records are revisited.Psychoeducation and support provided in this session.Detoxification in progress.Sleep hygiene discussed with patient.Trazodone 50 mg po hs.Ordered.Patient is made aware of the risk for priapism and he is instructed to alert MD/RN if occurrence of erectile abnormalities (prolonged/painful erection).Mr Barth denies any history of adverse effects from trazodone and consents to follow this careplan.Daily monitoring of clinical course.
[2017-07-24] MEDS: chlordiazePOXIDE HCL 25 MG CAPSULE PO SCH ×2 (17:31→22:36)
[2017-07-24] MEDS: INSULIN SLIDING SCALE (NOVOLOG) 1 VIAL SQ SCH (18:00)
[2017-07-24] MEDS: INSULIN DETEMIR 100 UNITS/ML MDV SQ SCH (21:08)
[2017-07-24] MEDS ORDERED: INSULIN SQ SCH (22:00)
[2017-07-24] MEDS: BUDESONIDE/FORMETEROL FUMARATE 160/4.5 mcg INHALER IH SCH (22:34)
[2017-07-24] MEDS: THIAMINE HCL 100 MG TABLET (FP) PO SCH (22:34)
[2017-07-24] MEDS: RANITIDINE HCL 150 MG TABLET (FP) PO SCH (22:35)
[2017-07-24] MEDS: GABAPENTIN 100 MG CAPSULE (FP) PO SCH (22:35)
[2017-07-24] MEDS: ATORVASTATIN CA 40 MG TABLET (FP) PO SCH (22:35)
[2017-07-24] MEDS: traZODone HCL 50 MG TABLET (FP) PO SCH (22:35)
[2017-07-24] MEDS: cloNIDine HCL 0.1 MG TABLET PO SCH (22:35)
[2017-07-24 23:37] LABS: URINE APPEARANCE CLEAR; URINE BILIRUBIN NEGATIVE (NEGATIVE); URINE BLOOD 1+ (NEGATIVE); URINE COLOR LTYELLOW; URINE GLUCOSE (UA) 3+ (NEGATIVE); URINE KETONE NEGATIVE (NEGATIVE); URINE LEUK ESTERASE NEGATIVE (NEGATIVE); URINE NITRITE NEGATIVE (NEGATIVE); URINE PROTEIN NEGATIVE (NEGATIVE); URINE UROBILINOGEN NEGATIVE mg/dL (0.2-1.0)
[2017-07-24 23:42] LABS: EPI CELLS RARE /HPF (FEW)
[2017-07-25] MEDS: chlordiazePOXIDE HCL 25 MG CAPSULE PO SCH ×4 (05:34→22:37)
[2017-07-25] MEDS: GABAPENTIN 100 MG CAPSULE (FP) PO SCH ×3 (05:34→22:37)
[2017-07-25] MEDS ORDERED: INSULIN (NOVOLOG) ASPART 100 UNITS/ML 10ML VIAL ONE ×3 (05:48→17:01)
[2017-07-25] MEDS: metFORMIN HCL 500 MG TABLET (FP) PO SCH (07:18)
[2017-07-25] MEDS: INSULIN SLIDING SCALE (NOVOLOG) 1 VIAL SQ SCH ×3 (07:19→17:24)
[2017-07-25] MEDS ORDERED: ERGOCALCIFEROL PO SCH (10:00)
[2017-07-25] MEDS ORDERED: PATIENT'S OWN MEDICATION (NON-FORMULARY) (Ferrous Sulfate [Ferrous Sulfate] 325 MG) PO SCH (10:00)
[2017-07-25] MEDS ORDERED: SELENIUM SULFIDE 2.5% LOTION 4 OZ. TP SCH (10:00)
[2017-07-25 10:16] LABS: HEMOGLOBIN 12.3 GM/dL (11.7-16.9); MCH 27.3 pg (25.7-33.7); MCHC 30.7 g/dl (32.0-35.9); PLATELET COUNT 128 K/MM3 (134-434); RDW 15.8 % (11.9-15.9); WHITE BLOOD COUNT 4.7 K/mm3 (4.0-10.0)
[2017-07-25] MEDS: FERROUS SO4 325 MG TABLET (FP) PO SCH (10:34)
[2017-07-25] MEDS: AMMONIUM LACTATE 12% LOTION 225 GM BOTTLE TP SCH ×2 (10:34→22:35)
[2017-07-25] MEDS: DOCUSATE SODIUM 100 MG CAPSULE (FP) PO SCH (10:34)
[2017-07-25] MEDS: BUDESONIDE/FORMETEROL FUMARATE 160/4.5 mcg INHALER IH SCH ×2 (10:34→22:35)
[2017-07-25] MEDS: ASPIRIN COATED 81 MG TABLET.EC PO SCH (10:34)
[2017-07-25] MEDS: METHADONE HCL 40 MG DISPERSABLE TABLET PO SCH (10:34)
[2017-07-25] MEDS: RANITIDINE HCL 150 MG TABLET (FP) PO SCH ×2 (10:34→22:36)
[2017-07-25] MEDS: PRENATAL VITAMINS W/ FOLIC ACID TABLET (FP) PO SCH (10:34)
[2017-07-25] MEDS: amLODIPine BESYLATE 10 MG TABLET (FP) PO SCH (10:34)
[2017-07-25] MEDS: cloNIDine HCL 0.1 MG TABLET PO SCH ×2 (10:35→22:36)
[2017-07-25 10:37] LABS: ALBUMIN 3.5 g/dl (3.4-5.0); ANION GAP 6 (8-16); BLOOD UREA NITROGEN 8 mg/dL (7-18); CALCIUM 8.4 mg/dL (8.5-10.1); CHLORIDE 95 mmol/L (98-107); CO2 31 mmol/L (21-32); GLUCOSE,RANDOM 274 mg/dL (74-106); SODIUM 132 mmol/L (136-145)
[2017-07-25] MEDS: ACETAMINOPHEN 325 MG TABLET (FP) PO PRN ×2 (10:37→22:40)
[2017-07-25 10:41] LABS: ALK PHOS 109 U/L (45-117); BILIRUBIN,TOTAL 1.1 mg/dL (0.2-1.0); SGOT/AST 37 U/L (15-37); SGPT/ALT 23 U/L (12-78); TOT PROT 8.5 g/dl (6.4-8.2)
--- NOTE | 2017-07-25 11:05 | EKG ---
Test Reason : Blood Pressure : / mmHG Vent. Rate : 080 BPM Atrial Rate : 080 BPM P-R Int : 148 ms QRS Dur : 086 ms QT Int : 402 ms P-R-T Axes : 058 016 030 degrees QTc Int : 463 ms NORMAL SINUS RHYTHM NORMAL ECG WHEN COMPARED WITH ECG OF 15-OCT-2016 20:57, [place] INTERVAL HAS DECREASED NONSPECIFIC T WAVE ABNORMALITY HAS REPLACED INVERTED T WAVES IN INFERIOR LEADS Confirmed by CHRISTIANE CROCKER, KIAH ([id number]) on 07/25/2017 11:05:25 AM Referred By: Confirmed By:KIAH GRANDE MD
--- NOTE | 2017-07-25 12:37 | PN ---
[facility] CIWA - CIWA Score Nausea/Vomitin-No Nausea/No Vomiting Muscle Tremors: 4-Moderate,w/Arms Extend Anxiety: 5 Agitation: 3 Paroxysmal Sweats: 3 Orientation: 0-Oriented Tacttile Disturbances: 3-Moderate Itch/Numb/Burn Auditory Disturbances: 0-None Visual Disturbances: 0-None Headache: 0-None Present CIWA-Ar Total Score: 18 [facility] Progress Note (SOAP) Subjective: Tremors, Constipation, Anxious. Objective: PT. A & O X 3, OBSERVED AMBULATING ON UNIT. NO ACUTE DISTRESS. PATIENT DENIES CHEST PAIN, DIZZINESS, AND SOB. 07/25/17 12:38 Vital Signs Temperature 97.4 F L 07/25/17 11:09 Pulse Rate 102 H 07/25/17 11:09 Respiratory Rate 20 07/25/17 11:09 Blood Pressure 148/92 07/25/17 11:09 O2 Sat by Pulse Oximetry (%) Laboratory Tests 07/24/17 07/24/17 07/24/17 15:57 20:54 23:25 WBC RBC Hgb Hct MCV MCH MCHC RDW Plt Count MPV Sodium Potassium Chloride Carbon Dioxide Anion Gap BUN Creatinine Creat Clearance w eGFR POC Glucometer 274 282 Random Glucose Calcium Total Bilirubin AST ALT Alkaline Phosphatase Total Protein Albumin Urine Color Ltyellow Urine Appearance Clear Urine pH 5.0 Ur Specific [place] 1.007 Urine Protein Negative Urine Glucose (UA) 3+ H Urine Ketones Negative Urine Blood 1+ H Urine Nitrite Negative Urine Bilirubin Negative Urine Urobilinogen Negative Ur Leukocyte Esterase Negative Urine WBC (Auto) None Urine RBC (Auto) None Ur Epithelial Cells Rare RPR Titer 07/25/17 07/25/17 07/25/17 05:33 07:00 07:00 WBC 4.7 RBC 4.50 Hgb 12.3 Hct 40.0 MCV 89.0 MCH 27.3 MCHC 30.7 L RDW 15.8 Plt Count 128 L D MPV 9.0 Sodium 132 L Potassium 4.0 Chloride 95 L Carbon Dioxide 31 Anion Gap 6 L BUN 8 D Creatinine 1.0 D Creat Clearance w eGFR > 60 POC Glucometer 210 Random Glucose 274 H Calcium 8.4 L Total Bilirubin 1.1 H D AST 37 D ALT 23 D Alkaline Phosphatase 109 Total Protein 8.5 H Albumin 3.5 D Urine Color Urine Appearance Urine pH Ur Specific [place] Urine Protein Urine Glucose (UA) Urine Ketones Urine Blood Urine Nitrite Urine Bilirubin Urine Urobilinogen Ur Leukocyte Esterase Urine WBC (Auto) Urine RBC (Auto) Ur Epithelial Cells RPR Titer 07/25/17 07/25/17 07:00 11:35 WBC RBC Hgb Hct MCV MCH MCHC RDW Plt Count MPV Sodium Potassium Chloride Carbon Dioxide Anion Gap BUN Creatinine Creat Clearance w eGFR POC Glucometer 314 Random Glucose Calcium Total Bilirubin AST ALT Alkaline Phosphatase Total Protein Albumin Urine Color Urine Appearance Urine pH Ur Specific [place] Urine Protein Urine Glucose (UA) Urine Ketones Urine Blood Urine Nitrite Urine Bilirubin Urine Urobilinogen Ur Leukocyte Esterase Urine WBC (Auto) Urine RBC (Auto) Ur Epithelial Cells RPR Titer Nonreactive LABS NOTED. Assessment: 07/25/17 12:39 WITHDRAWAL SYMPTOMS. Plan: CONTINUE DETOX. PATIENT CURRENTLY RECEIVING CLONIDINE, 0.2 MG PO BID FOR HTN. PATIENT REPORTS THAT HE TAKES 0.3 MG PO BID AT HOME FOR HTN. WILL CONTINUE TO MONITOR BP TO DETERMINE WHETHER OR NOT INCREASE IS NECESSARY.
[2017-07-25] MEDS: INSULIN DETEMIR 100 UNITS/ML MDV SQ SCH (22:33)
[2017-07-25] MEDS: THIAMINE HCL 100 MG TABLET (FP) PO SCH (22:36)
[2017-07-25] MEDS: traZODone HCL 50 MG TABLET (FP) PO SCH (22:37)
[2017-07-25] MEDS: ATORVASTATIN CA 40 MG TABLET (FP) PO SCH (22:37)
[2017-07-26] MEDS: GABAPENTIN 100 MG CAPSULE (FP) PO SCH ×3 (05:37→22:51)
[2017-07-26] MEDS: chlordiazePOXIDE HCL 25 MG CAPSULE PO SCH ×2 (05:37→10:28)
[2017-07-26] MEDS: METHADONE HCL 40 MG DISPERSABLE TABLET PO SCH (05:39)
[2017-07-26] MEDS ORDERED: INSULIN (NOVOLOG) ASPART 100 UNITS/ML 10ML VIAL ONE ×3 (07:41→16:58)
[2017-07-26] MEDS: INSULIN SLIDING SCALE (NOVOLOG) 1 VIAL SQ SCH ×3 (07:43→17:18)
[2017-07-26] MEDS: metFORMIN HCL 500 MG TABLET (FP) PO SCH (08:05)
[2017-07-26] MEDS ORDERED: OXYMETAZOLINE 0.05% NASAL SOLUTION 15 ML BOTTLE NS PRN (08:45)
[2017-07-26] MEDS: BUDESONIDE/FORMETEROL FUMARATE 160/4.5 mcg INHALER IH SCH ×2 (10:27→22:53)
[2017-07-26] MEDS: FERROUS SO4 325 MG TABLET (FP) PO SCH (10:27)
[2017-07-26] MEDS: PRENATAL VITAMINS W/ FOLIC ACID TABLET (FP) PO SCH (10:28)
[2017-07-26] MEDS: ASPIRIN COATED 81 MG TABLET.EC PO SCH (10:28)
[2017-07-26] MEDS: DOCUSATE SODIUM 100 MG CAPSULE (FP) PO SCH (10:28)
[2017-07-26] MEDS: AMMONIUM LACTATE 12% LOTION 225 GM BOTTLE TP SCH ×2 (10:28→22:52)
[2017-07-26] MEDS: cloNIDine HCL 0.1 MG TABLET PO SCH ×2 (10:28→22:50)
[2017-07-26] MEDS: amLODIPine BESYLATE 10 MG TABLET (FP) PO SCH (10:28)
[2017-07-26] MEDS: RANITIDINE HCL 150 MG TABLET (FP) PO SCH ×2 (10:29→22:51)
[2017-07-26] MEDS: ACETAMINOPHEN 325 MG TABLET (FP) PO PRN ×2 (10:30→22:53)
--- NOTE | 2017-07-26 16:31 | PN ---
[facility] CIWA - CIWA Score Nausea/Vomitin-No Nausea/No Vomiting Muscle Tremors: 2 Anxiety: 4-Mod. Anxious/Guarded Agitation: 3 Paroxysmal Sweats: 2 Orientation: 0-Oriented Tacttile Disturbances: 3-Moderate Itch/Numb/Burn Auditory Disturbances: 0-None Visual Disturbances: 1-Very Mild Sensitivity Headache: 0-None Present CIWA-Ar Total Score: 15 [facility] Progress Note (SOAP) Subjective: Body Aches, Sweating, H/A, Anxious, Fatigue. Objective: PT. A & O X 3, OBSERVED AMBULATING ON UNIT. NO ACUTE DISTRESS. PT. DENIES CHEST PAIN. 07/26/17 16:29 Vital Signs Temperature 96.2 F L 07/26/17 13:40 Pulse Rate 81 07/26/17 13:40 Respiratory Rate 18 07/26/17 13:40 Blood Pressure 137/84 07/26/17 13:40 O2 Sat by Pulse Oximetry (%) Laboratory Tests 07/24/17 07/24/17 07/24/17 15:57 20:54 23:25 WBC RBC Hgb Hct MCV MCH MCHC RDW Plt Count MPV Sodium Potassium Chloride Carbon Dioxide Anion Gap BUN Creatinine Creat Clearance w eGFR POC Glucometer 274 282 Random Glucose Calcium Total Bilirubin AST ALT Alkaline Phosphatase Total Protein Albumin Urine Color Ltyellow Urine Appearance Clear Urine pH 5.0 Ur Specific [place] 1.007 Urine Protein Negative Urine Glucose (UA) 3+ H Urine Ketones Negative Urine Blood 1+ H Urine Nitrite Negative Urine Bilirubin Negative Urine Urobilinogen Negative Ur Leukocyte Esterase Negative Urine WBC (Auto) None Urine RBC (Auto) None Ur Epithelial Cells Rare RPR Titer 07/25/17 07/25/17 07/25/17 05:33 07:00 07:00 WBC 4.7 RBC 4.50 Hgb 12.3 Hct 40.0 MCV 89.0 MCH 27.3 MCHC 30.7 L RDW 15.8 Plt Count 128 L D MPV 9.0 Sodium 132 L Potassium 4.0 Chloride 95 L Carbon Dioxide 31 Anion Gap 6 L BUN 8 D Creatinine 1.0 D Creat Clearance w eGFR > 60 POC Glucometer 210 Random Glucose 274 H Calcium 8.4 L Total Bilirubin 1.1 H D AST 37 D ALT 23 D Alkaline Phosphatase 109 Total Protein 8.5 H Albumin 3.5 D Urine Color Urine Appearance Urine pH Ur Specific [place] Urine Protein Urine Glucose (UA) Urine Ketones Urine Blood Urine Nitrite Urine Bilirubin Urine Urobilinogen Ur Leukocyte Esterase Urine WBC (Auto) Urine RBC (Auto) Ur Epithelial Cells RPR Titer 07/25/17 07/25/17 07/25/17 07:00 11:35 16:33 WBC RBC Hgb Hct MCV MCH MCHC RDW Plt Count MPV Sodium Potassium Chloride Carbon Dioxide Anion Gap BUN Creatinine Creat Clearance w eGFR POC Glucometer 314 324 Random Glucose Calcium Total Bilirubin AST ALT Alkaline Phosphatase Total Protein Albumin Urine Color Urine Appearance Urine pH Ur Specific [place] Urine Protein Urine Glucose (UA) Urine Ketones Urine Blood Urine Nitrite Urine Bilirubin Urine Urobilinogen Ur Leukocyte Esterase Urine WBC (Auto) Urine RBC (Auto) Ur Epithelial Cells RPR Titer Nonreactive 07/25/17 07/26/17 07/26/17 21:02 05:36 11:37 WBC RBC Hgb Hct MCV MCH MCHC RDW Plt Count MPV Sodium Potassium Chloride Carbon Dioxide Anion Gap BUN Creatinine Creat Clearance w eGFR POC Glucometer 351 430 276 Random Glucose Calcium Total Bilirubin AST ALT Alkaline Phosphatase Total Protein Albumin Urine Color Urine Appearance Urine pH Ur Specific [place] Urine Protein Urine Glucose (UA) Urine Ketones Urine Blood Urine Nitrite Urine Bilirubin Urine Urobilinogen Ur Leukocyte Esterase Urine WBC (Auto) Urine RBC (Auto) Ur Epithelial Cells RPR Titer LABS NOTED. 07/26/17 16:30 Assessment: 07/26/17 16:29 WITHDRAWAL SYMPTOMS. Plan: CONTINUE DETOX. CONTINUE TO MONITOR BP.
[2017-07-26] MEDS: chlordiazePOXIDE 5 MG CAPSULE PO SCH ×2 (17:19→22:49)
[2017-07-26] MEDS: ATORVASTATIN CA 40 MG TABLET (FP) PO SCH (22:51)
[2017-07-26] MEDS: THIAMINE HCL 100 MG TABLET (FP) PO SCH (22:51)
[2017-07-26] MEDS: traZODone HCL 50 MG TABLET (FP) PO SCH (22:52)
[2017-07-26] MEDS: INSULIN DETEMIR 100 UNITS/ML MDV SQ SCH (22:52)
[2017-07-27] MEDS ORDERED: INSULIN (NOVOLOG) ASPART 100 UNITS/ML 10ML VIAL ONE ×3 (04:56→16:37)
[2017-07-27] MEDS: chlordiazePOXIDE 5 MG CAPSULE PO SCH ×2 (05:31→10:53)
[2017-07-27] MEDS: GABAPENTIN 100 MG CAPSULE (FP) PO SCH ×3 (05:32→22:48)
[2017-07-27] MEDS: METHADONE HCL 40 MG DISPERSABLE TABLET PO SCH (05:33)
[2017-07-27] MEDS: metFORMIN HCL 500 MG TABLET (FP) PO SCH (06:15)
[2017-07-27] MEDS: INSULIN SLIDING SCALE (NOVOLOG) 1 VIAL SQ SCH ×3 (07:40→17:08)
[2017-07-27] MEDS: ASPIRIN COATED 81 MG TABLET.EC PO SCH (10:52)
[2017-07-27] MEDS: amLODIPine BESYLATE 10 MG TABLET (FP) PO SCH (10:52)
[2017-07-27] MEDS: FERROUS SO4 325 MG TABLET (FP) PO SCH (10:52)
[2017-07-27] MEDS: cloNIDine HCL 0.1 MG TABLET PO SCH ×2 (10:52→22:47)
[2017-07-27] MEDS: BUDESONIDE/FORMETEROL FUMARATE 160/4.5 mcg INHALER IH SCH ×2 (10:52→22:47)
[2017-07-27] MEDS: PRENATAL VITAMINS W/ FOLIC ACID TABLET (FP) PO SCH (10:53)
[2017-07-27] MEDS: RANITIDINE HCL 150 MG TABLET (FP) PO SCH ×2 (10:53→22:48)
[2017-07-27] MEDS: DOCUSATE SODIUM 100 MG CAPSULE (FP) PO SCH (10:53)
[2017-07-27] MEDS: AMMONIUM LACTATE 12% LOTION 225 GM BOTTLE TP SCH ×2 (10:54→22:48)
--- NOTE | 2017-07-27 14:10 | PN ---
[facility] Progress Note (SOAP) Subjective: Sweating, Anxious, Interrupted Sleep. Objective: PT. A & O X 3, OBSERVED AMBULATING ON UNIT. NO ACUTE DISTRESS. 07/27/17 14:08 Vital Signs Temperature 97.0 F L 07/27/17 13:41 Pulse Rate 82 07/27/17 13:41 Respiratory Rate 18 07/27/17 13:41 Blood Pressure 126/73 07/27/17 13:41 O2 Sat by Pulse Oximetry (%) Laboratory Tests 07/24/17 07/24/17 07/24/17 15:57 20:54 23:25 WBC RBC Hgb Hct MCV MCH MCHC RDW Plt Count MPV Sodium Potassium Chloride Carbon Dioxide Anion Gap BUN Creatinine Creat Clearance w eGFR POC Glucometer 274 282 Random Glucose Calcium Total Bilirubin AST ALT Alkaline Phosphatase Total Protein Albumin Urine Color Ltyellow Urine Appearance Clear Urine pH 5.0 Ur Specific [place] 1.007 Urine Protein Negative Urine Glucose (UA) 3+ H Urine Ketones Negative Urine Blood 1+ H Urine Nitrite Negative Urine Bilirubin Negative Urine Urobilinogen Negative Ur Leukocyte Esterase Negative Urine WBC (Auto) None Urine RBC (Auto) None Ur Epithelial Cells Rare RPR Titer 07/25/17 07/25/17 07/25/17 05:33 07:00 07:00 WBC 4.7 RBC 4.50 Hgb 12.3 Hct 40.0 MCV 89.0 MCH 27.3 MCHC 30.7 L RDW 15.8 Plt Count 128 L D MPV 9.0 Sodium 132 L Potassium 4.0 Chloride 95 L Carbon Dioxide 31 Anion Gap 6 L BUN 8 D Creatinine 1.0 D Creat Clearance w eGFR > 60 POC Glucometer 210 Random Glucose 274 H Calcium 8.4 L Total Bilirubin 1.1 H D AST 37 D ALT 23 D Alkaline Phosphatase 109 Total Protein 8.5 H Albumin 3.5 D Urine Color Urine Appearance Urine pH Ur Specific [place] Urine Protein Urine Glucose (UA) Urine Ketones Urine Blood Urine Nitrite Urine Bilirubin Urine Urobilinogen Ur Leukocyte Esterase Urine WBC (Auto) Urine RBC (Auto) Ur Epithelial Cells RPR Titer 07/25/17 07/25/17 07/25/17 07:00 11:35 16:33 WBC RBC Hgb Hct MCV MCH MCHC RDW Plt Count MPV Sodium Potassium Chloride Carbon Dioxide Anion Gap BUN Creatinine Creat Clearance w eGFR POC Glucometer 314 324 Random Glucose Calcium Total Bilirubin AST ALT Alkaline Phosphatase Total Protein Albumin Urine Color Urine Appearance Urine pH Ur Specific [place] Urine Protein Urine Glucose (UA) Urine Ketones Urine Blood Urine Nitrite Urine Bilirubin Urine Urobilinogen Ur Leukocyte Esterase Urine WBC (Auto) Urine RBC (Auto) Ur Epithelial Cells RPR Titer Nonreactive 07/25/17 07/26/17 07/26/17 21:02 05:36 11:37 WBC RBC Hgb Hct MCV MCH MCHC RDW Plt Count MPV Sodium Potassium Chloride Carbon Dioxide Anion Gap BUN Creatinine Creat Clearance w eGFR POC Glucometer 351 430 276 Random Glucose Calcium Total Bilirubin AST ALT Alkaline Phosphatase Total Protein Albumin Urine Color Urine Appearance Urine pH Ur Specific [place] Urine Protein Urine Glucose (UA) Urine Ketones Urine Blood Urine Nitrite Urine Bilirubin Urine Urobilinogen Ur Leukocyte Esterase Urine WBC (Auto) Urine RBC (Auto) Ur Epithelial Cells RPR Titer 07/27/17 07/27/17 05:30 11:04 WBC RBC Hgb Hct MCV MCH MCHC RDW Plt Count MPV Sodium Potassium Chloride Carbon Dioxide Anion Gap BUN Creatinine Creat Clearance w eGFR POC Glucometer 382 359 Random Glucose Calcium Total Bilirubin AST ALT Alkaline Phosphatase Total Protein Albumin Urine Color Urine Appearance Urine pH Ur Specific [place] Urine Protein Urine Glucose (UA) Urine Ketones Urine Blood Urine Nitrite Urine Bilirubin Urine Urobilinogen Ur Leukocyte Esterase Urine WBC (Auto) Urine RBC (Auto) Ur Epithelial Cells RPR Titer LABS NOTED. Assessment: 07/27/17 14:09 WITHDRAWAL SYMPTOMS. Plan: CONTINUE DETOX.
[2017-07-27] MEDS: ACETAMINOPHEN 325 MG TABLET (FP) PO PRN (15:00)
[2017-07-27] MEDS: chlordiazePOXIDE HCL 10 MG CAPSULE PO SCH ×2 (17:08→22:47)
[2017-07-27] MEDS: THIAMINE HCL 100 MG TABLET (FP) PO SCH (22:47)
[2017-07-27] MEDS: traZODone HCL 50 MG TABLET (FP) PO SCH (22:47)
[2017-07-27] MEDS: ATORVASTATIN CA 40 MG TABLET (FP) PO SCH (22:48)
[2017-07-27] MEDS: INSULIN DETEMIR 100 UNITS/ML MDV SQ SCH (22:49)
[2017-07-28] MEDS: chlordiazePOXIDE HCL 10 MG CAPSULE PO SCH (05:58)
[2017-07-28] MEDS: METHADONE HCL 40 MG DISPERSABLE TABLET PO SCH (05:58)
[2017-07-28] MEDS: GABAPENTIN 100 MG CAPSULE (FP) PO SCH (05:58)
[2017-07-28] MEDS: metFORMIN HCL 500 MG TABLET (FP) PO SCH (06:00)
[2017-07-28] MEDS ORDERED: INSULIN (NOVOLOG) ASPART 100 UNITS/ML 10ML VIAL ONE (08:06)
[2017-07-28] MEDS: INSULIN SLIDING SCALE (NOVOLOG) 1 VIAL SQ SCH (08:08)
[2017-07-28 09:55] VITALS: BP 144/94; PULSE 76; TEMP 96.6
[2017-07-28] MEDS: cloNIDine HCL 0.1 MG TABLET PO SCH (09:57)
[2017-07-28] MEDS: DOCUSATE SODIUM 100 MG CAPSULE (FP) PO SCH (09:57)
[2017-07-28] MEDS: amLODIPine BESYLATE 10 MG TABLET (FP) PO SCH (09:57)
[2017-07-28] MEDS: PRENATAL VITAMINS W/ FOLIC ACID TABLET (FP) PO SCH (09:57)
[2017-07-28] MEDS: ASPIRIN COATED 81 MG TABLET.EC PO SCH (09:57)
[2017-07-28] MEDS: FERROUS SO4 325 MG TABLET (FP) PO SCH (09:57)
[2017-07-28] MEDS: BUDESONIDE/FORMETEROL FUMARATE 160/4.5 mcg INHALER IH SCH (09:58)
--- NOTE | 2017-07-28 17:05 | DS ---
[facility] Detox Discharge Summary Admission Date: 07/24/17 Discharge Date: 07/28/17 - History Present History: Alcohol Dependence, Opioid Dependence, MMTP Additional Comments: PATIENT GOING HOME, WILL RETURN TO OUTPATIENT 'STEP BY STEP' PROGRAM ( [facility], [place] FOR AFTERCARE. PATIENT ALSO ADVISED TO FOLLOW- UP WITH [employer] DR. JJ ([place], [place] FOR MEDICAL ASSESSMENT AND FOR HISTORY OF HTN. PATIENT WAS DISCHARGED FROM DETOX UNIT IN STABLE MEDICAL CONDITION. Pertinent Past History: HTN, Asthma, IDDM, Depression, Anxiety, Insomnia, GERD, Weight Loss, History of Inguinal Hernia Repair, MMTP. - Physical Exam Results Vital Signs: Vital Signs Temperature 96.6 F L 07/28/17 09:54 Pulse Rate 76 07/28/17 09:54 Respiratory Rate 20 07/28/17 09:54 Blood Pressure 144/94 07/28/17 09:54 O2 Sat by Pulse Oximetry (%) Pertinent Admission Physical Exam Findings: WITHDRAWAL SYMPTOMS. Laboratory Tests 07/24/17 07/24/17 07/24/17 15:57 20:54 23:25 WBC RBC Hgb Hct MCV MCH MCHC RDW Plt Count MPV Sodium Potassium Chloride Carbon Dioxide Anion Gap BUN Creatinine Creat Clearance w eGFR POC Glucometer 274 282 Random Glucose Calcium Total Bilirubin AST ALT Alkaline Phosphatase Total Protein Albumin Urine Color Ltyellow Urine Appearance Clear Urine pH 5.0 Ur Specific [place] 1.007 Urine Protein Negative Urine Glucose (UA) 3+ H Urine Ketones Negative Urine Blood 1+ H Urine Nitrite Negative Urine Bilirubin Negative Urine Urobilinogen Negative Ur Leukocyte Esterase Negative Urine WBC (Auto) None Urine RBC (Auto) None Ur Epithelial Cells Rare RPR Titer 07/25/17 07/25/17 07/25/17 05:33 07:00 07:00 WBC 4.7 RBC 4.50 Hgb 12.3 Hct 40.0 MCV 89.0 MCH 27.3 MCHC 30.7 L RDW 15.8 Plt Count 128 L D MPV 9.0 Sodium 132 L Potassium 4.0 Chloride 95 L Carbon Dioxide 31 Anion Gap 6 L BUN 8 D Creatinine 1.0 D Creat Clearance w eGFR > 60 POC Glucometer 210 Random Glucose 274 H Calcium 8.4 L Total Bilirubin 1.1 H D AST 37 D ALT 23 D Alkaline Phosphatase 109 Total Protein 8.5 H Albumin 3.5 D Urine Color Urine Appearance Urine pH Ur Specific [place] Urine Protein Urine Glucose (UA) Urine Ketones Urine Blood Urine Nitrite Urine Bilirubin Urine Urobilinogen Ur Leukocyte Esterase Urine WBC (Auto) Urine RBC (Auto) Ur Epithelial Cells RPR Titer 07/25/17 07/25/17 07/25/17 07:00 11:35 16:33 WBC RBC Hgb Hct MCV MCH MCHC RDW Plt Count MPV Sodium Potassium Chloride Carbon Dioxide Anion Gap BUN Creatinine Creat Clearance w eGFR POC Glucometer 314 324 Random Glucose Calcium Total Bilirubin AST ALT Alkaline Phosphatase Total Protein Albumin Urine Color Urine Appearance Urine pH Ur Specific [place] Urine Protein Urine Glucose (UA) Urine Ketones Urine Blood Urine Nitrite Urine Bilirubin Urine Urobilinogen Ur Leukocyte Esterase Urine WBC (Auto) Urine RBC (Auto) Ur Epithelial Cells RPR Titer Nonreactive 07/25/17 07/26/17 07/26/17 21:02 05:36 11:37 WBC RBC Hgb Hct MCV MCH MCHC RDW Plt Count MPV Sodium Potassium Chloride Carbon Dioxide Anion Gap BUN Creatinine Creat Clearance w eGFR POC Glucometer 351 430 276 Random Glucose Calcium Total Bilirubin AST ALT Alkaline Phosphatase Total Protein Albumin Urine Color Urine Appearance Urine pH Ur Specific [place] Urine Protein Urine Glucose (UA) Urine Ketones Urine Blood Urine Nitrite Urine Bilirubin Urine Urobilinogen Ur Leukocyte Esterase Urine WBC (Auto) Urine RBC (Auto) Ur Epithelial Cells RPR Titer 07/27/17 07/27/17 07/27/17 05:30 11:04 20:54 WBC RBC Hgb Hct MCV MCH MCHC RDW Plt Count MPV Sodium Potassium Chloride Carbon Dioxide Anion Gap BUN Creatinine Creat Clearance w eGFR POC Glucometer 382 359 367 Random Glucose Calcium Total Bilirubin AST ALT Alkaline Phosphatase Total Protein Albumin Urine Color Urine Appearance Urine pH Ur Specific [place] Urine Protein Urine Glucose (UA) Urine Ketones Urine Blood Urine Nitrite Urine Bilirubin Urine Urobilinogen Ur Leukocyte Esterase Urine WBC (Auto) Urine RBC (Auto) Ur Epithelial Cells RPR Titer LABS NOTED. - Treatment Hospital Course: Detox Protocol Followed, Detoxed Safely, Responded well, Discharged Condition Good Patient has Accepted a Rehab Referral to: PT WILL RETURN TO 'STEP BY STEP [address] [facility] OUTPATIENT PROGRAM. - Medication Discharge Medications: Ambulatory Orders Insulin (Novolog) [Novolog Flexpen -] 10 units SQ TID 01/09/12 Aspirin Coated [Ecotrin -] 81 mg PO DAILY 09/21/15 Albuterol Sulfate Inhaler - [Ventolin HFA Inhaler -] 2 inh PO PRN PRN #1 inhaler 09/25/15 Insulin Glargine,Hum.rec.anlog [Lantus Solostar PEN -] 20 units SQ HS #1 vial Metformin HCl [Glucophage -] 500 mg PO ACBK 11/20/15 Amlodipine Besylate 10 mg PO DAILY 10/15/16 Atorvastatin Calcium 40 mg PO HS 10/15/16 Budesonide/Formeterol Fumarate [SYMBICORT 160/4.5mcg -] 2 inh PO BID 10/15/16 Docusate Sodium [Colace -] 100 mg PO DAILY 10/15/16 Ergocalciferol (Vitamin D2) [Vitamin D2] 400 unit PO DAILY 10/15/16 Ferrous Sulfate 325 mg PO DAILY 10/15/16 Gabapentin 100 mg PO TID 10/15/16 Ranitidine [Zantac -] 150 mg PO BID 10/15/16 Diphenhydramine HCl 25 mg PO QID PRN 07/24/17 Trazodone HCl [Desyrel -] 50 mg PO HS #30 tablet 07/24/17 Clonidine HCl 0.2 mg PO BID 30 Days #60 tablet 07/27/17 - Diagnosis (1) Alcohol dependence with uncomplicated withdrawal Status: Acute (2) IDDM (insulin dependent diabetes mellitus) Status: Chronic (3) Opioid dependence on agonist therapy Status: Chronic (4) H/O left inguinal hernia repair Status: Acute (5) Insomnia secondary to depression with anxiety Status: Acute (6) Weight loss Status: Acute (7) Insomnia Status: Chronic Qualifiers: Insomnia type: primary Qualified Code(s): F51.01 - Primary insomnia (8) GERD (gastroesophageal reflux disease) Status: Chronic Qualifiers: Esophagitis presence: without esophagitis Qualified Code(s): K21.9 - Gastro -esophageal reflux disease without esophagitis (9) Asthma Status: Chronic Qualifiers: Asthma severity: unspecified severity Asthma persistence: unspecified Asthma complication type: with status asthmaticus Qualified Code(s): J45.902 - Unspecified asthma with status asthmaticus (10) COPD (chronic obstructive pulmonary disease) Status: Chronic Qualifiers: COPD type: chronic bronchitis Chronic bronchitis type: simple Qualified Code(s): J41.0 - Simple chronic bronchitis (11) Essential hypertension Status: Chronic - AMA Did Patient Leave Against Medical Advice: No
== END 2017-07-28 10:00 | disposition home or self-care (01) | DRG 773 ==
LOC: YASAS 13:21 → Y3N 15:50
PROVIDERS: ADMIT Internal Medicine; ATTEND Internal Medicine
PROC: HZ2ZZZZ Detoxification Services for Substance Abuse Treatment (ICD-10-PCS; principal; 2017-07-24)
DX: F11.20 Opioid dependence, uncomplicated (principal); F10.230 Alcohol dependence with withdrawal, uncomplicated; F51.01 Primary insomnia; E11.9 Type 2 diabetes mellitus without complications; Z79.4 Long term (current) use of insulin; I10 Essential (primary) hypertension; J45.902 Unspecified asthma with status asthmaticus; J41.0 Simple chronic bronchitis; K21.9 Gastro-esophageal reflux disease without esophagitis; R63.4 Abnormal weight loss; Z68.28 Body mass index [BMI] 28.0-28.9, adult; Z98.890 Other specified postprocedural states
CPT/HCPCS: 36415; 80053; 81003; 81015; 82962; 85027; 86593; 93005; 93010; J0735

== ENCOUNTER 2018-02-05 09:50 | Inpatient (IN) | payer OTHER ==
[2018-02-05 11:55] VITALS: BMI 30.7
--- NOTE | 2018-02-05 12:55 | HP ---
CIWA Score - CIWA Score Nausea/Vomitin-No Nausea/No Vomiting Muscle Tremors: 2 Anxiety: 3 Agitation: 2 Paroxysmal Sweats: 3 Orientation: 1-Uncertain about Date (no distress) Tacttile Disturbances: 1-Very Mild Itch/Numbness Auditory Disturbances: 0-None Visual Disturbances: 0-None Headache: 0-None Present CIWA-Ar Total Score: 12 Admission ROS BHS - HPI Chief Complaint: alcohol withdrawal symptoms Allergies/Adverse Reactions: Allergies Allergy/AdvReac Type Severity Reaction Status Date / Time lisinopril AdvReac Severe Swelling Verified 07/24/17 15:28 of the Face History of Present Illness: 62 yo male with hx of alcohol dependence is here seeking detox. PMHX: DM II, COPD, HTN, hyprelipidemia. Denies any psychiatric problems. Denies suicidal/ homicidal ideation. Denies hx of seizure or blackouts. MMTP: [facility], on methadone 40 mg, last medicated 02/02/18 with 40 mg, dose verified, as per program patient normally receives 80 mg, however, dose was reduce to 40 mg d/t patient presenting to his program intoxicated and inconsistent attendance. Longest period of sobriety six months. Exam Limitations: No Limitations - Ebola screening Have you traveled outside of the country in the last 21 days: No Have you had contact with anyone from an Ebola affected area: No Have you been sick,other than usual withdrawal symptoms: No Do you have a fever: No - Review of Systems Constitutional: Chills, Loss of Appetite, Unintentional Wgt. Loss (10 lbs) EENT: reports: Dental Problems (poor dentition) Respiratory: reports: No Symptoms reported Cardiac: reports: No Symptoms Reported GI: reports: Poor Appetite, Poor Fluid Intake : reports: No Symptoms Reported Musculoskeletal: reports: No Symptoms Reported Integumentary: reports: Other (healed diabetic ulcer on the right great toe) Neuro: reports: No Symptoms reported Endocrine: reports: Increased Thirst Psychiatric: reports: Orientated x3, Anxious Other Systems: Reviewed and Negative Patient History - Patient Medical History Hx Anemia: No Hx Asthma: Yes Hx Chronic Obstructive Pulmonary Disease (COPD): Yes Hx Cancer: No Hx Cardiac Disorders: No Hx Congestive Heart Failure: No Hx Hypertension: Yes (ON MEDS.) Hx Hypercholesterolemia: Yes Hx Pacemaker: No HX Cerebrovascular Accident: No Hx Seizures: No Hx Dementia: No Hx Diabetes: Yes Hx Gastrointestinal Disorders: No Hx Liver Disease: No Hx Genitourinary Disorders: No Hx Sexually Transmitted Disorders: No Hx Renal Disease (ESRD): No Hx Thyroid Disease: No Hx Human Immunodeficiency Virus (HIV): No (last tested four months ago ) Hx Hepatitis C: No Hx Depression: Yes Hx Suicide Attempt: No Hx Bipolar Disorder: No Hx Schizophrenia: No - Patient Surgical History Past Surgical History: Yes Hx Neurologic Surgery: No Hx Cataract Extraction: No Hx Cardiac Surgery: No Hx Lung Surgery: No Hx Breast Surgery: No Hx Breast Biopsy: No Hx Abdominal Surgery: Yes (left inguinal hernia repair in 1979) Hx Appendectomy: No Hx Cholecystectomy: No Hx Genitourinary Surgery: No Hx Section: No Hx Orthopedic Surgery: No Other Surgical History: R FOOT CORN REMOVAL ON GREAT TOE 05/2016 Anesthesia Reaction: No - PPD History Previous Implant?: Yes Documented Results: Negative w/proof Implanted On Prior [facility] Admission?: Yes Date: 07/26/17 Results: 0 MM PPD to be Administered?: No - Smoking Cessation Smoking history: Never smoked Have you smoked in the past 12 months: No Aproximately how many cigarettes per day: 0 Cigars Per Day: 0 Hx Chewing Tobacco Use: No Initiated information on smoking cessation: No 'Breaking Loose' booklet given: 02/05/18 - Substance & Tx. History Hx Alcohol Use: Yes Hx Substance Use: No Substance Use Type: Alcohol Hx Substance Use Treatment: Yes ([facility] 07/24/17 - 07/28/17) - Substances Abused Alcohol Route: Oral Frequency: Daily Amount used: 6PK BEER AND UP Age of first use: 17 Date of Last Use: 02/05/18 Family Disease History - Family Disease History Family Disease History: Diabetes: Mother (htn), Heart Disease: Mother, Respiratory: Sister (PN ), Other: Grandparent (htn), Father (htn ) Admission Physical Exam BHS - Vital Signs Vital Signs: Vital Signs - 24 hr 02/05/18 11:54 Temperature 99.1 F Pulse Rate 107 H Respiratory 20 Rate Blood Pressure 161/96 - Physical General Appearance: Yes: Nourished, Disheveled, Irritable, Anxious, Other ( malodorous) HEENTM: Yes: EOMI, Hearing grossly Normal, Normal ENT Inspection, Normocephalic , Normal Voice, RAJWINDER, Pharynx Normal, Tm's normal, Other (poor dentition) Respiratory: Yes: Chest Non-Tender, Lungs Clear, Normal Breath Sounds, No Respiratory Distress, No Accessory Muscle Use Neck: Yes: Within Normal Limits Breast: Yes: Breast Exam Deferred Cardiology: Yes: Regular Rhythm, Regular Rate, Irregular Abdominal: Yes: Normal Bowel Sounds, Non Tender, Soft, Protuberent Genitourinary: Yes: Within Normal Limits Back: Yes: Normal Inspection Musculoskeletal: Yes: full range of Motion, Gait Steady, Pelvis Stable Extremities: Yes: Normal Capillary Refill, Normal Inspection, Normal Range of Motion, Non-Tender, Other (+ callus on both feet, healed ulcer on the right toe) 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 intact, Fully Oriented, Alert, Motor Strength 5/5, Depressed Affect Integumentary: Yes: Normal Color, Dry, Warm Lymphatic: Yes: Within Normal Limits - Diagnostic (1) Elevated blood pressure reading with diagnosis of hypertension Current Visit: Yes Status: Acute (2) Alcohol dependence with uncomplicated withdrawal Current Visit: Yes Status: Acute (3) Weight loss Current Visit: Yes Status: Acute (4) COPD (chronic obstructive pulmonary disease) Current Visit: Yes Status: Chronic Qualifiers: COPD type: chronic bronchitis Chronic bronchitis type: simple Qualified Code(s): J41.0 - Simple chronic bronchitis (5) Essential hypertension Current Visit: Yes Status: Chronic (6) GERD (gastroesophageal reflux disease) Current Visit: Yes Status: Chronic Qualifiers: Esophagitis presence: without esophagitis Qualified Code(s): K21.9 - Gastro -esophageal reflux disease without esophagitis (7) IDDM (insulin dependent diabetes mellitus) Current Visit: Yes Status: Chronic (8) Opioid dependence on agonist therapy Current Visit: Yes Status: Chronic Cleared for Admission S - Detox or Rehab [facility] Level of Care: Medically Managed Detox Regimen/Protocol: Librium S Breath Alcohol Content Breath Alcohol Content: 0.091 Urine Drug Screen - Results Drug Screen Negative: No Urine Drug Screen Results: MTD-Methadone
[2018-02-05] MEDS ORDERED: ALBUTEROL SO4 8 GM HFA INHALER IH PRN (13:00)
[2018-02-05] MEDS ORDERED: MAG HYDROX/AL HYDROX/SIMETH 30 ML UNIT-DOSE CUP PO PRN (13:02)
[2018-02-05] MEDS ORDERED: LOPERAMIDE HCL 2 MG CAPSULE PO PRN (13:02)
[2018-02-05] MEDS ORDERED: chlordiazePOXIDE HCL 25 MG CAPSULE PO PRN (13:02)
[2018-02-05] MEDS ORDERED: ACETAMINOPHEN 325 MG TABLET (FP) PO PRN (13:02)
[2018-02-05] MEDS ORDERED: MENTHOL/PHENOL 1 EACH UD MM PRN (13:02)
[2018-02-05] MEDS ORDERED: guaiFENesin/D-METHORPHAN HB 10 ML UNIT-DOSE CUPS PO PRN (13:02)
[2018-02-05] MEDS ORDERED: MAGNESIUM CITRATE 300 ML BOTTLE PO PRN (13:02)
[2018-02-05] MEDS ORDERED: MAGNESIUM HYDROX 2400MG/30ML ORAL SUSPENSION 30 ML CUP PO PRN (13:02)
[2018-02-05] MEDS ORDERED: P-EPHED 60MG/TRIPROLIDI 2.5MG TABLET PO PRN (13:02)
[2018-02-05] MEDS ORDERED: METHADONE HCL 10 MG TABLET PO ONE (13:19)
[2018-02-05] MEDS ORDERED: METHADONE HCL 40 MG DISPERSABLE TABLET PO ONE (14:00)
[2018-02-05] MEDS ORDERED: chlordiazePOXIDE HCL 25 MG CAPSULE PO ONE (14:00)
[2018-02-05] MEDS: cloNIDine HCL 0.1 MG TABLET PO SCH ×2 (15:06→22:30)
--- NOTE | 2018-02-05 15:59 | CONSULT ---
[facility] Psychiatric Consult - Data Date of interview: 02/05/18 Admission source: [facility] Identifying data: Readmission to [facility] [place] for this 62 y/o AA male seeking detox treatment, on , for alcohol and opioid dependence.Patient is single ,a father of one,domiciled,unemployed and supported on welfare. Substance Abuse History: Patient confirms long standing history of alcohol dependence.Smoking history: Never smoked. Have you smoked in the past 12 months : No. Aproximately how many cigarettes per day: 0. Cigars Per Day: 0. Hx Chewing Tobacco Use: No. Initiated information on smoking cessation: No. ' Breaking Loose' booklet given: 02/05/18. - Substance & Tx. History. Hx Alcohol Use: Yes. Hx Substance Use: No. Substance Use Type: Alcohol. Hx Substance Use Treatment: Yes ([facility] 07/24/17 - 07/28/17). - Substances Abused. Alcohol. Route: Oral. Frequency: Daily. Amount used: 6PK BEER AND UP. Age of first use: 17. Date of Last Use: 02/05/18 Medical History: Consistent with hypertension,insulin-dependent diabetes mellitus,arthritis,COPD,GERD,hypercholesterolemia,antecedent of myocardial infarction,left inguinal herniorraphy (1979) and a past history of syphilis ( treated).Additional history of foot surgery (corn removal from right great toe) in 2015.Patient is now walking without a cane. Psychiatric History: No history of psychiatric hospitalizations.Mr Barth is on methadone maintenance (40 mg/day) at the [facility] MMTP program in the [place].No reported history of suicide attempts.Patient declares that he is not on any psychotropic drug other than methadone.Willing to take only zolpidem at bedtime for insomnia. Physical/Sexual Abuse/Trauma History: Patient denies. Additional Comment: Urine Drug Screen Results: MTD-Methadone.Noted. Mental Status Exam - Mental Status Exam Alert and Oriented to: Time, Place, Person Cognitive Function: Good Patient Appearance: Well Groomed Mood: Hopeful, Euthymic Affect: Appropriate, Normal Range Patient Behavior: Fatigued, Appropriate, Cooperative Speech Pattern: Clear Voice Loudness: Normal Thought Process: Goal Oriented Thought Disorder: Not Present Hallucinations: Denies Suicidal Ideation: Denies Homicidal Ideation: Denies Insight/Judgement: Poor Sleep: Poorly, Difficulty falling asleep Appetite: Good Muscle strength/Tone: Normal Gait/Station: Normal Psychiatric Findings - Problem List ([place] 1, 2,3) (1) Alcohol dependence with uncomplicated withdrawal Current Visit: Yes Status: Acute (2) Opioid dependence on agonist therapy Current Visit: Yes Status: Acute (3) Insomnia Current Visit: Yes Status: Chronic Qualifiers: Insomnia type: primary Qualified Code(s): F51.01 - Primary insomnia - Initial Treatment Plan Initial Treatment Plan: Psychoeducation.Sleep hygiene.Detoxification in progress.Ambien 5 mg po hs prn.Patient is made aware of the risk of sleep- walking.Agrees to careplan.Observation.
[2018-02-05] MEDS: INSULIN (NOVOLOG) ASPART 100 UNITS/ML 10ML VIAL SQ SCH (17:20)
[2018-02-05] MEDS: chlordiazePOXIDE HCL 25 MG CAPSULE PO SCH ×2 (17:57→22:30)
[2018-02-05 21:36] LABS: URINE APPEARANCE CLEAR; URINE BILIRUBIN NEGATIVE (<2.0 mg/dL); URINE COLOR YELLOW; URINE GLUCOSE (UA) 3+ (NEGATIVE); URINE KETONE TRACE (NEGATIVE); URINE LEUK ESTERASE NEGATIVE (NEGATIVE); URINE NITRITE NEGATIVE (NEGATIVE); URINE PROTEIN NEGATIVE (NEGATIVE); URINE UROBILINOGEN NEGATIVE mg/dL (0.2-1.0)
[2018-02-05] MEDS: THIAMINE HCL 100 MG TABLET (FP) PO SCH (22:30)
[2018-02-05] MEDS: BUDESONIDE/FORMETEROL FUMARATE 160/4.5 mcg INHALER IH SCH (22:30)
[2018-02-05] MEDS: ATORVASTATIN CA 40 MG TABLET (FP) PO SCH (22:31)
[2018-02-05] MEDS: ZOLPIDEM TARTRATE 5 MG TABLET PO PRN (22:31)
[2018-02-05] MEDS: INSULIN (LEVEMIR) 100 UNITS/ML UNITS SQ SCH (22:35)
[2018-02-05] MEDS: IBUPROFEN 400 MG TABLET (FP) PO PRN (23:14)
[2018-02-06] MEDS: cloNIDine HCL 0.1 MG TABLET PO SCH ×4 (05:03→22:36)
[2018-02-06] MEDS: METHADONE HCL 40 MG DISPERSABLE TABLET PO SCH (05:03)
[2018-02-06] MEDS: chlordiazePOXIDE HCL 25 MG CAPSULE PO SCH ×4 (05:03→22:35)
[2018-02-06] MEDS ORDERED: METHADONE HCL 10 MG TABLET PO SCH (06:00)
[2018-02-06] MEDS: metFORMIN HCL 500 MG TABLET (FP) PO SCH (06:27)
[2018-02-06] MEDS: INSULIN (NOVOLOG) ASPART 100 UNITS/ML 10ML VIAL SQ SCH ×3 (08:05→17:20)
[2018-02-06 09:43] LABS: HEMOGLOBIN 10.8 GM/dL (11.7-16.9); MCH 27.9 pg (25.7-33.7); MCHC 32.6 g/dl (32.0-35.9); MEAN CELL VOLUME 85.7 fl (80-96); MEAN PLT VOLUME 9.5 fl (7.5-11.1); PLATELET COUNT 166 K/MM3 (134-434); RBC 3.85 M/mm3 (4.00-5.60); RDW 16.1 % (11.9-15.9); WHITE BLOOD COUNT 5.9 K/mm3 (4.0-10.0)
[2018-02-06 09:48] LABS: CHLORIDE 103 mmol/L (98-107); POTASSIUM 3.7 mmol/L (3.5-5.1); SODIUM 140 mmol/L (136-145)
[2018-02-06 09:58] LABS: ALBUMIN 3.2 g/dl (3.4-5.0); ALK PHOS 106 U/L (45-117); ANION GAP 10 (8-16); BILIRUBIN,TOTAL 0.7 mg/dL (0.2-1.0); BLOOD UREA NITROGEN 11 mg/dL (7-18); CALCIUM 8.7 mg/dL (8.5-10.1); CO2 27 mmol/L (21-32); GLUCOSE,RANDOM 183 mg/dL (74-106); SGOT/AST 39 U/L (15-37); SGPT/ALT 21 U/L (12-78); TOT PROT 8.9 g/dl (6.4-8.2)
--- NOTE | 2018-02-06 10:03 | EKG ---
Test Reason : Blood Pressure : / mmHG Vent. Rate : 097 BPM Atrial Rate : 097 BPM P-R Int : 150 ms QRS Dur : 090 ms QT Int : 368 ms P-R-T Axes : 059 012 038 degrees QTc Int : 467 ms NORMAL SINUS RHYTHM NORMAL ECG WHEN COMPARED WITH ECG OF 24-JUL-2017 17:08, NO SIGNIFICANT CHANGE WAS FOUND Confirmed by KIAH GRANDE MD ([id number]) on 02/06/2018 10:02:56 AM Referred By: Confirmed By:KIAH GRANDE MD
[2018-02-06] MEDS: BUDESONIDE/FORMETEROL FUMARATE 160/4.5 mcg INHALER IH SCH ×2 (10:19→22:37)
[2018-02-06] MEDS: PRENATAL VITAMINS W/ FOLIC ACID TABLET (FP) PO SCH (10:19)
[2018-02-06] MEDS: ASPIRIN COATED 81 MG TABLET.EC PO SCH (10:19)
[2018-02-06] MEDS: IBUPROFEN 400 MG TABLET (FP) PO PRN (11:02)
--- NOTE | 2018-02-06 15:42 | PN ---
S CIWA - CIWA Score Nausea/Vomitin-No Nausea/No Vomiting Muscle Tremors: 3 Anxiety: 5 Agitation: 4-Moderately Restless Paroxysmal Sweats: 2 Orientation: 0-Oriented Tacttile Disturbances: 3-Moderate Itch/Numb/Burn Auditory Disturbances: 0-None Visual Disturbances: 0-None Headache: 0-None Present CIWA-Ar Total Score: 17 BHS Progress Note (SOAP) Subjective: Interrupted Sleep, Anxious, Sweating. Objective: PATIENT A & O X 3, OBSERVED AMBULATING ON UNIT. NO ACUTE DISTRESS. 02/06/18 15:42 Vital Signs Temperature 97.1 F L 02/06/18 13:15 Pulse Rate 84 02/06/18 13:15 Respiratory Rate 18 02/06/18 13:15 Blood Pressure 148/88 02/06/18 15:22 O2 Sat by Pulse Oximetry (%) Laboratory Tests 02/05/18 02/05/18 02/05/18 12:09 13:40 16:28 WBC RBC Hgb Hct MCV MCH MCHC RDW Plt Count MPV Sodium Potassium Chloride Carbon Dioxide Anion Gap BUN Creatinine Creat Clearance w eGFR POC Glucometer 236 256 Random Glucose Calcium Total Bilirubin AST ALT Alkaline Phosphatase Total Protein Albumin Urine Color Urine Appearance Urine pH Ur Specific [place] Urine Protein Urine Glucose (UA) Urine Ketones Urine Blood Urine Nitrite Urine Bilirubin Urine Urobilinogen Ur Leukocyte Esterase RPR Titer HIV 1&2 Antibody Screen Negative HIV P24 Antigen Negative 02/05/18 02/05/18 02/06/18 18:48 21:33 05:03 WBC RBC Hgb Hct MCV MCH MCHC RDW Plt Count MPV Sodium Potassium Chloride Carbon Dioxide Anion Gap BUN Creatinine Creat Clearance w eGFR POC Glucometer 120 150 Random Glucose Calcium Total Bilirubin AST ALT Alkaline Phosphatase Total Protein Albumin Urine Color Yellow Urine Appearance Clear Urine pH 5.0 Ur Specific [place] 1.017 Urine Protein Negative Urine Glucose (UA) 3+ H Urine Ketones Trace H Urine Blood Negative Urine Nitrite Negative Urine Bilirubin Negative Urine Urobilinogen Negative Ur Leukocyte Esterase Negative RPR Titer HIV 1&2 Antibody Screen HIV P24 Antigen 02/06/18 02/06/18 02/06/18 06:00 06:00 06:00 WBC 5.9 RBC 3.85 L Hgb 10.8 L Hct 33.0 L D MCV 85.7 MCH 27.9 MCHC 32.6 RDW 16.1 H Plt Count 166 D MPV 9.5 Sodium 140 Potassium 3.7 Chloride 103 Carbon Dioxide 27 Anion Gap 10 BUN 11 Creatinine 1.0 Creat Clearance w eGFR > 60 POC Glucometer Random Glucose 183 H D Calcium 8.7 Total Bilirubin 0.7 AST 39 H ALT 21 Alkaline Phosphatase 106 Total Protein 8.9 H Albumin 3.2 L Urine Color Urine Appearance Urine pH Ur Specific [place] Urine Protein Urine Glucose (UA) Urine Ketones Urine Blood Urine Nitrite Urine Bilirubin Urine Urobilinogen Ur Leukocyte Esterase RPR Titer Nonreactive HIV 1&2 Antibody Screen HIV P24 Antigen 02/06/18 10:55 WBC RBC Hgb Hct MCV MCH MCHC RDW Plt Count MPV Sodium Potassium Chloride Carbon Dioxide Anion Gap BUN Creatinine Creat Clearance w eGFR POC Glucometer 196 Random Glucose Calcium Total Bilirubin AST ALT Alkaline Phosphatase Total Protein Albumin Urine Color Urine Appearance Urine pH Ur Specific [place] Urine Protein Urine Glucose (UA) Urine Ketones Urine Blood Urine Nitrite Urine Bilirubin Urine Urobilinogen Ur Leukocyte Esterase RPR Titer HIV 1&2 Antibody Screen HIV P24 Antigen LABS NOTED. Assessment: 02/06/18 15:42 WITHDRAWAL SYMPTOMS. Plan: CONTINUE DETOX.
[2018-02-06] MEDS ORDERED: amLODIPine BESYLATE 10 MG TABLET (FP) PO ONE (17:45)
[2018-02-06] MEDS: THIAMINE HCL 100 MG TABLET (FP) PO SCH (22:35)
[2018-02-06] MEDS: ATORVASTATIN CA 40 MG TABLET (FP) PO SCH (22:36)
[2018-02-06] MEDS: ZOLPIDEM TARTRATE 5 MG TABLET PO PRN (22:36)
[2018-02-06] MEDS: INSULIN (LEVEMIR) 100 UNITS/ML UNITS SQ SCH (22:40)
[2018-02-07] MEDS: METHADONE HCL 40 MG DISPERSABLE TABLET PO SCH (05:10)
[2018-02-07] MEDS: cloNIDine HCL 0.1 MG TABLET PO SCH ×3 (05:10→22:09)
[2018-02-07] MEDS: chlordiazePOXIDE HCL 25 MG CAPSULE PO SCH ×2 (05:11→10:03)
[2018-02-07] MEDS: metFORMIN HCL 500 MG TABLET (FP) PO SCH (07:58)
[2018-02-07] MEDS: INSULIN (NOVOLOG) ASPART 100 UNITS/ML 10ML VIAL SQ SCH ×3 (08:13→17:17)
[2018-02-07] MEDS: PRENATAL VITAMINS W/ FOLIC ACID TABLET (FP) PO SCH (10:02)
[2018-02-07] MEDS: amLODIPine BESYLATE 10 MG TABLET (FP) PO SCH (10:03)
[2018-02-07] MEDS: ASPIRIN COATED 81 MG TABLET.EC PO SCH (10:03)
[2018-02-07] MEDS: BUDESONIDE/FORMETEROL FUMARATE 160/4.5 mcg INHALER IH SCH ×2 (10:03→22:09)
--- NOTE | 2018-02-07 14:58 | PN ---
[facility] CIWA - CIWA Score Nausea/Vomitin-No Nausea/No Vomiting Muscle Tremors: 2 Anxiety: 4-Mod. Anxious/Guarded Agitation: 4-Moderately Restless Paroxysmal Sweats: 3 Orientation: 0-Oriented Tacttile Disturbances: 2-Mild Itch/Numbness/Burn Auditory Disturbances: 0-None Visual Disturbances: 1-Very Mild Sensitivity Headache: 0-None Present CIWA-Ar Total Score: 16 S Progress Note (SOAP) Subjective: Anxious, Chills, Sweating, Body Aches. Objective: PATIENT A & O X 3, OBSERVED AMBULATING ON UNIT. NO ACUTE DISTRESS. PATIENT DENIES CHEST PAIN. 02/07/18 14:54 Vital Signs Temperature 97 F L 02/07/18 13:49 Pulse Rate 82 02/07/18 13:49 Respiratory Rate 18 02/07/18 13:49 Blood Pressure 100/65 02/07/18 13:49 O2 Sat by Pulse Oximetry (%) Laboratory Tests 02/05/18 02/05/18 02/05/18 12:09 13:40 16:28 WBC RBC Hgb Hct MCV MCH MCHC RDW Plt Count MPV Sodium Potassium Chloride Carbon Dioxide Anion Gap BUN Creatinine Creat Clearance w eGFR POC Glucometer 236 256 Random Glucose Calcium Total Bilirubin AST ALT Alkaline Phosphatase Total Protein Albumin Urine Color Urine Appearance Urine pH Ur Specific [place] Urine Protein Urine Glucose (UA) Urine Ketones Urine Blood Urine Nitrite Urine Bilirubin Urine Urobilinogen Ur Leukocyte Esterase RPR Titer HIV 1&2 Antibody Screen Negative HIV P24 Antigen Negative 02/05/18 02/05/18 02/06/18 18:48 21:33 05:03 WBC RBC Hgb Hct MCV MCH MCHC RDW Plt Count MPV Sodium Potassium Chloride Carbon Dioxide Anion Gap BUN Creatinine Creat Clearance w eGFR POC Glucometer 120 150 Random Glucose Calcium Total Bilirubin AST ALT Alkaline Phosphatase Total Protein Albumin Urine Color Yellow Urine Appearance Clear Urine pH 5.0 Ur Specific [place] 1.017 Urine Protein Negative Urine Glucose (UA) 3+ H Urine Ketones Trace H Urine Blood Negative Urine Nitrite Negative Urine Bilirubin Negative Urine Urobilinogen Negative Ur Leukocyte Esterase Negative RPR Titer HIV 1&2 Antibody Screen HIV P24 Antigen 02/06/18 02/06/18 02/06/18 06:00 06:00 06:00 WBC 5.9 RBC 3.85 L Hgb 10.8 L Hct 33.0 L D MCV 85.7 MCH 27.9 MCHC 32.6 RDW 16.1 H Plt Count 166 D MPV 9.5 Sodium 140 Potassium 3.7 Chloride 103 Carbon Dioxide 27 Anion Gap 10 BUN 11 Creatinine 1.0 Creat Clearance w eGFR > 60 POC Glucometer Random Glucose 183 H D Calcium 8.7 Total Bilirubin 0.7 AST 39 H ALT 21 Alkaline Phosphatase 106 Total Protein 8.9 H Albumin 3.2 L Urine Color Urine Appearance Urine pH Ur Specific [place] Urine Protein Urine Glucose (UA) Urine Ketones Urine Blood Urine Nitrite Urine Bilirubin Urine Urobilinogen Ur Leukocyte Esterase RPR Titer Nonreactive HIV 1&2 Antibody Screen HIV P24 Antigen 02/06/18 02/06/18 02/06/18 10:55 16:27 20:38 WBC RBC Hgb Hct MCV MCH MCHC RDW Plt Count MPV Sodium Potassium Chloride Carbon Dioxide Anion Gap BUN Creatinine Creat Clearance w eGFR POC Glucometer 196 213 253 Random Glucose Calcium Total Bilirubin AST ALT Alkaline Phosphatase Total Protein Albumin Urine Color Urine Appearance Urine pH Ur Specific [place] Urine Protein Urine Glucose (UA) Urine Ketones Urine Blood Urine Nitrite Urine Bilirubin Urine Urobilinogen Ur Leukocyte Esterase RPR Titer HIV 1&2 Antibody Screen HIV P24 Antigen 02/07/18 02/07/18 05:10 11:09 WBC RBC Hgb Hct MCV MCH MCHC RDW Plt Count MPV Sodium Potassium Chloride Carbon Dioxide Anion Gap BUN Creatinine Creat Clearance w eGFR POC Glucometer 184 207 Random Glucose Calcium Total Bilirubin AST ALT Alkaline Phosphatase Total Protein Albumin Urine Color Urine Appearance Urine pH Ur Specific [place] Urine Protein Urine Glucose (UA) Urine Ketones Urine Blood Urine Nitrite Urine Bilirubin Urine Urobilinogen Ur Leukocyte Esterase RPR Titer HIV 1&2 Antibody Screen HIV P24 Antigen LABS NOTED. Assessment: 02/07/18 14:55 WITHDRAWAL SYMPTOMS. ANEMIA. 02/07/18 14:56 Plan: CONTINUE DETOX. PRN FLEXERIL FOR BODY ACHES / MUSCLE SPASMS.
--- NOTE | 2018-02-07 16:53 | PN ---
[facility] Progress Note Note: PATIENT'S BGM: 176. STANDING DOSE OF 10 UNITS REGULAR INSULIN ORDERED. Ant ALVARADO NP
[2018-02-07] MEDS ORDERED: INSULIN (NOVOLOG) ASPART 100 UNITS/ML 10ML VIAL SQ ONE (17:15)
[2018-02-07] MEDS: chlordiazePOXIDE 5 MG CAPSULE PO SCH ×2 (17:27→22:07)
[2018-02-07] MEDS: CYCLOBENZAPRINE HCL 10 MG TABLET (FP) PO PRN (22:07)
[2018-02-07] MEDS: ATORVASTATIN CA 40 MG TABLET (FP) PO SCH (22:08)
[2018-02-07] MEDS: THIAMINE HCL 100 MG TABLET (FP) PO SCH (22:09)
[2018-02-07] MEDS: INSULIN (LEVEMIR) 100 UNITS/ML UNITS SQ SCH (22:09)
[2018-02-08] MEDS: cloNIDine HCL 0.1 MG TABLET PO SCH ×3 (05:03→22:08)
[2018-02-08] MEDS: METHADONE HCL 40 MG DISPERSABLE TABLET PO SCH (05:04)
[2018-02-08] MEDS: chlordiazePOXIDE 5 MG CAPSULE PO SCH ×2 (05:04→10:21)
[2018-02-08] MEDS: metFORMIN HCL 500 MG TABLET (FP) PO SCH (07:16)
[2018-02-08] MEDS: INSULIN (NOVOLOG) ASPART 100 UNITS/ML 10ML VIAL SQ SCH ×3 (07:28→17:18)
[2018-02-08] MEDS: amLODIPine BESYLATE 10 MG TABLET (FP) PO SCH (10:21)
[2018-02-08] MEDS: BUDESONIDE/FORMETEROL FUMARATE 160/4.5 mcg INHALER IH SCH ×2 (10:21→22:33)
[2018-02-08] MEDS: ASPIRIN COATED 81 MG TABLET.EC PO SCH (10:21)
[2018-02-08] MEDS: PRENATAL VITAMINS W/ FOLIC ACID TABLET (FP) PO SCH (10:21)
--- NOTE | 2018-02-08 15:30 | PN ---
BHS Progress Note (SOAP) Subjective: Body Aches, Sweating, Anxious. Objective: PATIENT A & O X 3, OBSERVED AMBULATING ON UNIT. NO ACUTE DISTRESS. 02/08/18 15:25 Vital Signs Temperature 97.6 F 02/08/18 13:35 Pulse Rate 87 02/08/18 13:35 Respiratory Rate 18 02/08/18 13:35 Blood Pressure 117/79 02/08/18 13:35 O2 Sat by Pulse Oximetry (%) Laboratory Tests 02/05/18 02/05/18 02/05/18 12:09 13:40 16:28 WBC RBC Hgb Hct MCV MCH MCHC RDW Plt Count MPV Sodium Potassium Chloride Carbon Dioxide Anion Gap BUN Creatinine Creat Clearance w eGFR POC Glucometer 236 256 Random Glucose Calcium Total Bilirubin AST ALT Alkaline Phosphatase Total Protein Albumin Urine Color Urine Appearance Urine pH Ur Specific [place] Urine Protein Urine Glucose (UA) Urine Ketones Urine Blood Urine Nitrite Urine Bilirubin Urine Urobilinogen Ur Leukocyte Esterase RPR Titer HIV 1&2 Antibody Screen Negative HIV P24 Antigen Negative 02/05/18 02/05/18 02/06/18 18:48 21:33 05:03 WBC RBC Hgb Hct MCV MCH MCHC RDW Plt Count MPV Sodium Potassium Chloride Carbon Dioxide Anion Gap BUN Creatinine Creat Clearance w eGFR POC Glucometer 120 150 Random Glucose Calcium Total Bilirubin AST ALT Alkaline Phosphatase Total Protein Albumin Urine Color Yellow Urine Appearance Clear Urine pH 5.0 Ur Specific [place] 1.017 Urine Protein Negative Urine Glucose (UA) 3+ H Urine Ketones Trace H Urine Blood Negative Urine Nitrite Negative Urine Bilirubin Negative Urine Urobilinogen Negative Ur Leukocyte Esterase Negative RPR Titer HIV 1&2 Antibody Screen HIV P24 Antigen 02/06/18 02/06/18 02/06/18 06:00 06:00 06:00 WBC 5.9 RBC 3.85 L Hgb 10.8 L Hct 33.0 L D MCV 85.7 MCH 27.9 MCHC 32.6 RDW 16.1 H Plt Count 166 D MPV 9.5 Sodium 140 Potassium 3.7 Chloride 103 Carbon Dioxide 27 Anion Gap 10 BUN 11 Creatinine 1.0 Creat Clearance w eGFR > 60 POC Glucometer Random Glucose 183 H D Calcium 8.7 Total Bilirubin 0.7 AST 39 H ALT 21 Alkaline Phosphatase 106 Total Protein 8.9 H Albumin 3.2 L Urine Color Urine Appearance Urine pH Ur Specific [place] Urine Protein Urine Glucose (UA) Urine Ketones Urine Blood Urine Nitrite Urine Bilirubin Urine Urobilinogen Ur Leukocyte Esterase RPR Titer Nonreactive HIV 1&2 Antibody Screen HIV P24 Antigen 02/06/18 02/06/18 02/06/18 10:55 16:27 20:38 WBC RBC Hgb Hct MCV MCH MCHC RDW Plt Count MPV Sodium Potassium Chloride Carbon Dioxide Anion Gap BUN Creatinine Creat Clearance w eGFR POC Glucometer 196 213 253 Random Glucose Calcium Total Bilirubin AST ALT Alkaline Phosphatase Total Protein Albumin Urine Color Urine Appearance Urine pH Ur Specific [place] Urine Protein Urine Glucose (UA) Urine Ketones Urine Blood Urine Nitrite Urine Bilirubin Urine Urobilinogen Ur Leukocyte Esterase RPR Titer HIV 1&2 Antibody Screen HIV P24 Antigen 02/07/18 02/07/18 02/07/18 05:10 11:09 16:23 WBC RBC Hgb Hct MCV MCH MCHC RDW Plt Count MPV Sodium Potassium Chloride Carbon Dioxide Anion Gap BUN Creatinine Creat Clearance w eGFR POC Glucometer 184 207 176 Random Glucose Calcium Total Bilirubin AST ALT Alkaline Phosphatase Total Protein Albumin Urine Color Urine Appearance Urine pH Ur Specific [place] Urine Protein Urine Glucose (UA) Urine Ketones Urine Blood Urine Nitrite Urine Bilirubin Urine Urobilinogen Ur Leukocyte Esterase RPR Titer HIV 1&2 Antibody Screen HIV P24 Antigen 02/08/18 02/08/18 05:01 11:46 WBC RBC Hgb Hct MCV MCH MCHC RDW Plt Count MPV Sodium Potassium Chloride Carbon Dioxide Anion Gap BUN Creatinine Creat Clearance w eGFR POC Glucometer 340 285 Random Glucose Calcium Total Bilirubin AST ALT Alkaline Phosphatase Total Protein Albumin Urine Color Urine Appearance Urine pH Ur Specific [place] Urine Protein Urine Glucose (UA) Urine Ketones Urine Blood Urine Nitrite Urine Bilirubin Urine Urobilinogen Ur Leukocyte Esterase RPR Titer HIV 1&2 Antibody Screen HIV P24 Antigen LABS NOTED. Assessment: 02/08/18 15:25 WITHDRAWAL SYMPTOMS. Plan: CONTINUE DETOX. DUE TO FLUCTUATIONS IN BP OVER LAST FEW DAYS AND DUE TO THE FACT THAT PATIENT CUURENTLY TAKES CLONIDINE, 0.2 MG PO BID FOR HTN AT HOME (PATIENT NO LONGER HAS ANY OF THIS MEDICATION AT HOME), PATIENT PERMITTED TO REMAIN ON DETOX UNIT UNTIL 02/10/2018, AT WHICH TIME HE WILL BE DISCHARGED TO THEN RETURN [facility] AND WITH [facility] FOR MEDICAL ASSESSMENT AND FOR HISTORY OF HTN.
[2018-02-08] MEDS: chlordiazePOXIDE HCL 10 MG CAPSULE PO SCH ×2 (17:18→22:08)
[2018-02-08] MEDS: INSULIN (LEVEMIR) 100 UNITS/ML UNITS SQ SCH (22:07)
[2018-02-08] MEDS: ATORVASTATIN CA 40 MG TABLET (FP) PO SCH (22:08)
[2018-02-08] MEDS: THIAMINE HCL 100 MG TABLET (FP) PO SCH (22:08)
[2018-02-08] MEDS: CYCLOBENZAPRINE HCL 10 MG TABLET (FP) PO PRN (22:08)
[2018-02-08] MEDS: MELATONIN 5 MG TABLETS PO PRN (22:10)
[2018-02-09] MEDS: cloNIDine HCL 0.1 MG TABLET PO SCH ×3 (05:24→22:29)
[2018-02-09] MEDS: chlordiazePOXIDE HCL 10 MG CAPSULE PO SCH ×2 (05:24→10:16)
[2018-02-09] MEDS: METHADONE HCL 40 MG DISPERSABLE TABLET PO SCH (05:24)
[2018-02-09] MEDS: metFORMIN HCL 500 MG TABLET (FP) PO SCH (06:57)
[2018-02-09] MEDS: INSULIN (NOVOLOG) ASPART 100 UNITS/ML 10ML VIAL SQ SCH ×3 (06:58→17:12)
[2018-02-09] MEDS: amLODIPine BESYLATE 10 MG TABLET (FP) PO SCH (10:15)
[2018-02-09] MEDS: ASPIRIN COATED 81 MG TABLET.EC PO SCH (10:15)
[2018-02-09] MEDS: PRENATAL VITAMINS W/ FOLIC ACID TABLET (FP) PO SCH (10:15)
[2018-02-09] MEDS: BUDESONIDE/FORMETEROL FUMARATE 160/4.5 mcg INHALER IH SCH ×2 (10:16→22:28)
--- NOTE | 2018-02-09 13:54 | PN ---
[facility] Progress Note (SOAP) Subjective: Interrupted sleep, anxious Objective: 02/09/18 13:53 Last Vital Signs Temp Pulse Resp BP Pulse Ox 95.9 F L 88 18 115/73 02/09/18 09:30 02/09/18 09:30 02/09/18 09:30 02/09/18 09:30 Laboratory Tests 02/05/18 02/05/18 02/05/18 12:09 13:40 16:28 WBC RBC Hgb Hct MCV MCH MCHC RDW Plt Count MPV Sodium Potassium Chloride Carbon Dioxide Anion Gap BUN Creatinine Creat Clearance w eGFR POC Glucometer 236 256 Random Glucose Calcium Total Bilirubin AST ALT Alkaline Phosphatase Total Protein Albumin Urine Color Urine Appearance Urine pH Ur Specific [place] Urine Protein Urine Glucose (UA) Urine Ketones Urine Blood Urine Nitrite Urine Bilirubin Urine Urobilinogen Ur Leukocyte Esterase RPR Titer HIV 1&2 Antibody Screen Negative HIV P24 Antigen Negative 02/05/18 02/05/18 02/06/18 18:48 21:33 05:03 WBC RBC Hgb Hct MCV MCH MCHC RDW Plt Count MPV Sodium Potassium Chloride Carbon Dioxide Anion Gap BUN Creatinine Creat Clearance w eGFR POC Glucometer 120 150 Random Glucose Calcium Total Bilirubin AST ALT Alkaline Phosphatase Total Protein Albumin Urine Color Yellow Urine Appearance Clear Urine pH 5.0 Ur Specific [place] 1.017 Urine Protein Negative Urine Glucose (UA) 3+ H Urine Ketones Trace H Urine Blood Negative Urine Nitrite Negative Urine Bilirubin Negative Urine Urobilinogen Negative Ur Leukocyte Esterase Negative RPR Titer HIV 1&2 Antibody Screen HIV P24 Antigen 02/06/18 02/06/18 02/06/18 06:00 06:00 06:00 WBC 5.9 RBC 3.85 L Hgb 10.8 L Hct 33.0 L D MCV 85.7 MCH 27.9 MCHC 32.6 RDW 16.1 H Plt Count 166 D MPV 9.5 Sodium 140 Potassium 3.7 Chloride 103 Carbon Dioxide 27 Anion Gap 10 BUN 11 Creatinine 1.0 Creat Clearance w eGFR > 60 POC Glucometer Random Glucose 183 H D Calcium 8.7 Total Bilirubin 0.7 AST 39 H ALT 21 Alkaline Phosphatase 106 Total Protein 8.9 H Albumin 3.2 L Urine Color Urine Appearance Urine pH Ur Specific [place] Urine Protein Urine Glucose (UA) Urine Ketones Urine Blood Urine Nitrite Urine Bilirubin Urine Urobilinogen Ur Leukocyte Esterase RPR Titer Nonreactive HIV 1&2 Antibody Screen HIV P24 Antigen 02/06/18 02/06/18 02/06/18 10:55 16:27 20:38 WBC RBC Hgb Hct MCV MCH MCHC RDW Plt Count MPV Sodium Potassium Chloride Carbon Dioxide Anion Gap BUN Creatinine Creat Clearance w eGFR POC Glucometer 196 213 253 Random Glucose Calcium Total Bilirubin AST ALT Alkaline Phosphatase Total Protein Albumin Urine Color Urine Appearance Urine pH Ur Specific [place] Urine Protein Urine Glucose (UA) Urine Ketones Urine Blood Urine Nitrite Urine Bilirubin Urine Urobilinogen Ur Leukocyte Esterase RPR Titer HIV 1&2 Antibody Screen HIV P24 Antigen 02/07/18 02/07/18 02/07/18 05:10 11:09 16:23 WBC RBC Hgb Hct MCV MCH MCHC RDW Plt Count MPV Sodium Potassium Chloride Carbon Dioxide Anion Gap BUN Creatinine Creat Clearance w eGFR POC Glucometer 184 207 176 Random Glucose Calcium Total Bilirubin AST ALT Alkaline Phosphatase Total Protein Albumin Urine Color Urine Appearance Urine pH Ur Specific [place] Urine Protein Urine Glucose (UA) Urine Ketones Urine Blood Urine Nitrite Urine Bilirubin Urine Urobilinogen Ur Leukocyte Esterase RPR Titer HIV 1&2 Antibody Screen HIV P24 Antigen 02/07/18 02/08/18 02/08/18 20:10 05:01 11:46 WBC RBC Hgb Hct MCV MCH MCHC RDW Plt Count MPV Sodium Potassium Chloride Carbon Dioxide Anion Gap BUN Creatinine Creat Clearance w eGFR POC Glucometer 293 340 285 Random Glucose Calcium Total Bilirubin AST ALT Alkaline Phosphatase Total Protein Albumin Urine Color Urine Appearance Urine pH Ur Specific [place] Urine Protein Urine Glucose (UA) Urine Ketones Urine Blood Urine Nitrite Urine Bilirubin Urine Urobilinogen Ur Leukocyte Esterase RPR Titer HIV 1&2 Antibody Screen HIV P24 Antigen 02/08/18 02/08/18 02/09/18 16:37 20:38 05:23 WBC RBC Hgb Hct MCV MCH MCHC RDW Plt Count MPV Sodium Potassium Chloride Carbon Dioxide Anion Gap BUN Creatinine Creat Clearance w eGFR POC Glucometer 310 313 245 Random Glucose Calcium Total Bilirubin AST ALT Alkaline Phosphatase Total Protein Albumin Urine Color Urine Appearance Urine pH Ur Specific [place] Urine Protein Urine Glucose (UA) Urine Ketones Urine Blood Urine Nitrite Urine Bilirubin Urine Urobilinogen Ur Leukocyte Esterase RPR Titer HIV 1&2 Antibody Screen HIV P24 Antigen 02/09/18 11:50 WBC RBC Hgb Hct MCV MCH MCHC RDW Plt Count MPV Sodium Potassium Chloride Carbon Dioxide Anion Gap BUN Creatinine Creat Clearance w eGFR POC Glucometer 389 Random Glucose Calcium Total Bilirubin AST ALT Alkaline Phosphatase Total Protein Albumin Urine Color Urine Appearance Urine pH Ur Specific [place] Urine Protein Urine Glucose (UA) Urine Ketones Urine Blood Urine Nitrite Urine Bilirubin Urine Urobilinogen Ur Leukocyte Esterase RPR Titer HIV 1&2 Antibody Screen HIV P24 Antigen Labs reviewed Assessment: 02/09/18 13:54 Withdrawal symptoms Plan: Continue detox
[2018-02-09] MEDS ORDERED: INSULIN (NOVOLOG) ASPART 100 UNITS/ML 10ML VIAL ONE (16:40)
[2018-02-09] MEDS ORDERED: ATORVASTATIN CA 20 MG TABLET (FP) ONE (19:46)
[2018-02-09] MEDS: INSULIN (LEVEMIR) 100 UNITS/ML UNITS SQ SCH (22:29)
[2018-02-09] MEDS: ATORVASTATIN CA 40 MG TABLET (FP) PO SCH (22:29)
[2018-02-09] MEDS: MELATONIN 5 MG TABLETS PO PRN (22:32)
[2018-02-09] MEDS: THIAMINE HCL 100 MG TABLET (FP) PO SCH (22:41)
[2018-02-10] MEDS: METHADONE HCL 40 MG DISPERSABLE TABLET PO SCH (05:17)
[2018-02-10] MEDS: cloNIDine HCL 0.1 MG TABLET PO SCH (05:17)
[2018-02-10 06:06] VITALS: BP 138/84; PULSE 66; TEMP 97.1
[2018-02-10] MEDS: metFORMIN HCL 500 MG TABLET (FP) PO SCH (06:17)
[2018-02-10] MEDS ORDERED: INSULIN (NOVOLOG) ASPART 100 UNITS/ML 10ML VIAL ONE (06:54)
[2018-02-10] MEDS: INSULIN (NOVOLOG) ASPART 100 UNITS/ML 10ML VIAL SQ SCH (07:20)
== END 2018-02-10 07:00 | disposition home or self-care (01) | DRG 773 ==
LOC: YASAS 09:50 → Y3N 13:35
PROVIDERS: ADMIT Surgery; ATTEND Surgery
PROC: HZ2ZZZZ Detoxification Services for Substance Abuse Treatment (ICD-10-PCS; principal; 2018-02-05)
DX: F10.230 Alcohol dependence with withdrawal, uncomplicated (principal); F11.20 Opioid dependence, uncomplicated; I10 Essential (primary) hypertension; I49.9 Cardiac arrhythmia, unspecified; I25.2 Old myocardial infarction; E11.65 Type 2 diabetes mellitus with hyperglycemia; E78.5 Hyperlipidemia, unspecified; D64.9 Anemia, unspecified; J44.9 Chronic obstructive pulmonary disease, unspecified; K21.9 Gastro-esophageal reflux disease without esophagitis; G47.00 Insomnia, unspecified; Z87.438 Personal history of other diseases of male genital organs; Z79.4 Long term (current) use of insulin; Z87.898 Personal history of other specified conditions
CPT/HCPCS: 36415; 80053; 81003; 82962; 85027; 86593; 87389; 93005; 93010; J0735

== ENCOUNTER 2018-04-14 18:12 | Inpatient (IN) | payer OTHER ==
[2018-04-14 19:47] VITALS: BMI 30.2
--- NOTE | 2018-04-14 23:49 | HP ---
CIWA Score - CIWA Score Nausea/Vomitin Muscle Tremors: 3 Anxiety: 4-Mod. Anxious/Guarded Agitation: 4-Moderately Restless Paroxysmal Sweats: 1-Minimal Palms Moist Orientation: 0-Oriented Tacttile Disturbances: 1-Very Mild Itch/Numbness Auditory Disturbances: 0-None Visual Disturbances: 0-None Headache: 0-None Present CIWA-Ar Total Score: 15 Admission ROS S - HPI Chief Complaint: Alcohol withdrawal symptoms Allergies/Adverse Reactions: Allergies Allergy/AdvReac Type Severity Reaction Status Date / Time No Known Drug Allergies Allergy Verified 04/14/18 22:47 lisinopril AdvReac Severe Swelling Verified 04/14/18 22:47 of the Face History of Present Illness: 62 years old male with a long history of alcohol dependence is seeking admission to detox. Patient was in detox -02/10/2018 at [facility]. He reports insignificant period of sobriety. He has medical history of DM type 2, GERD, COPD, asthma, hypertension, hyperlipidemia, depression and anxiety. He denies suicidal ideation at this time. He is on Methadone 90mg at [facility]. LDM is today, 04/14/2018. Dose to be verified by the nurse. Exam Limitations: No Limitations - Ebola screening Have you traveled outside of the country in the last 21 days: No (N) Have you had contact with anyone from an Ebola affected area: No Have you been sick,other than usual withdrawal symptoms: No Do you have a fever: No - Review of Systems Constitutional: Chills, Malaise, Night Sweats, Changes in sleep EENT: reports: No Symptoms Reported Respiratory: reports: No Symptoms reported Cardiac: reports: No Symptoms Reported GI: reports: Poor Appetite, Poor Fluid Intake, Abdominal cramping : reports: No Symptoms Reported Musculoskeletal: reports: Back Pain, Joint Pain, Muscle Pain Integumentary: reports: Dryness, Flushing Neuro: reports: Tingling (both legs), Tremors Endocrine: reports: No Symptoms Reported Hematology: reports: No Symptoms Reported Psychiatric: reports: Anxious, Depressed Other Systems: Reviewed and Negative Patient History - Patient Medical History Hx Anemia: No Hx Asthma: Yes (Albuterol MDI) Hx Chronic Obstructive Pulmonary Disease (COPD): Yes (Not on medicatiom) Hx Cancer: No Hx Cardiac Disorders: No Hx Congestive Heart Failure: No Hx Hypertension: Yes (Clonidine) Hx Hypercholesterolemia: Yes (Not on medication) Hx Pacemaker: No HX Cerebrovascular Accident: No Hx Seizures: No Hx Dementia: No Hx Diabetes: Yes (Novolog) Hx Gastrointestinal Disorders: No Hx Liver Disease: No Hx Genitourinary Disorders: No Hx Sexually Transmitted Disorders: No Hx Renal Disease (ESRD): No Hx Thyroid Disease: No Hx Human Immunodeficiency Virus (HIV): No (Negative 2017) Hx Hepatitis C: No Hx Depression: Yes (Not on medication) Hx Suicide Attempt: No Hx Bipolar Disorder: No Hx Schizophrenia: No Other Medical History: Anxiety - Not on medication - Patient Surgical History Past Surgical History: Yes Hx Neurologic Surgery: No Hx Cataract Extraction: No Hx Cardiac Surgery: No Hx Lung Surgery: No Hx Breast Surgery: No Hx Breast Biopsy: No Hx Abdominal Surgery: Yes (left inguinal hernia repair in 1979) Hx Appendectomy: No Hx Cholecystectomy: No Hx Genitourinary Surgery: No Hx Section: No Hx Orthopedic Surgery: No Other Surgical History: R FOOT CORN REMOVAL ON GREAT TOE 05/2016 Anesthesia Reaction: No - PPD History Previous Implant?: Yes Documented Results: Negative w/proof Date: 07/26/17 Results: 0 MM PPD to be Administered?: No - Reproductive History Patient is a Female of Child Bearing Age (11 -55 yrs old): No (Male) - Smoking Cessation Smoking history: Never smoked Have you smoked in the past 12 months: No Aproximately how many cigarettes per day: 0 Cigars Per Day: 0 Hx Chewing Tobacco Use: No Initiated information on smoking cessation: No - Substance & Tx. History Hx Alcohol Use: Yes Hx Substance Use: Yes Substance Use Type: Alcohol, Cocaine Hx Substance Use Treatment: Yes ([facility]) - Substances Abused Alcohol Route: Oral Frequency: Daily Amount used: liquor- 3 pints, beer- 1 six pack Age of first use: 18 Date of Last Use: 04/14/18 Family Disease History - Family Disease History Family Disease History: Diabetes: Mother (htn), Heart Disease: Mother, Respiratory: Sister (PN ), Other: Grandparent (htn), Father (htn ) Admission Physical Exam BHS - Vital Signs Vital Signs: Vital Signs - 24 hr 04/14/18 19:46 Temperature 98 F Pulse Rate 89 Respiratory 18 Rate Blood Pressure 148/91 - Physical General Appearance: Yes: Moderate Distress, Tremorous, Irritable, Anxious HEENTM: Yes: EOMI, Normal ENT Inspection, Normal Voice, RAJWINDER Respiratory: Yes: Lungs Clear, Normal Breath Sounds, No Respiratory Distress Neck: Yes: Supple Breast: Yes: Breast Exam Deferred Cardiology: Yes: Regular Rhythm, Regular Rate Abdominal: Yes: Normal Bowel Sounds Genitourinary: Yes: Within Normal Limits Back: Yes: Normal Inspection Musculoskeletal: Yes: Within Normal Limits Extremities: Yes: Tremors Neurological: Yes: instructional coach II-XII NML intact, Alert, Normal Mood/Affect Integumentary: Yes: Warm Lymphatic: Yes: Within Normal Limits - Diagnostic (1) Hypertension Current Visit: Yes Status: Chronic Qualifiers: Hypertension type: essential hypertension Qualified Code(s): I10 - Essential (primary) hypertension (2) Anxiety Current Visit: Yes Status: Chronic (3) Alcohol dependence with uncomplicated withdrawal Current Visit: Yes Status: Chronic (4) Asthma Current Visit: Yes Status: Chronic Qualifiers: Asthma severity: unspecified severity Asthma persistence: unspecified Asthma complication type: with status asthmaticus Qualified Code(s): J45.902 - Unspecified asthma with status asthmaticus (5) COPD (chronic obstructive pulmonary disease) Current Visit: Yes Status: Chronic Qualifiers: COPD type: chronic bronchitis Chronic bronchitis type: simple Qualified Code(s): J41.0 - Simple chronic bronchitis (6) Depression Current Visit: Yes Status: Chronic Qualifiers: Depression Type: dysthymia Qualified Code(s): F34.1 - Dysthymic disorder (7) Essential hypertension Current Visit: Yes Status: Chronic (8) GERD (gastroesophageal reflux disease) Current Visit: Yes Status: Chronic Qualifiers: Esophagitis presence: without esophagitis Qualified Code(s): K21.9 - Gastro -esophageal reflux disease without esophagitis (9) Methadone maintenance therapy patient Current Visit: Yes Status: Chronic Comment: 90 MG LAST DOSE 06/07/16 VERIFICAITON PENDING (10) Type II diabetes mellitus Current Visit: Yes Status: Chronic Qualifiers: Diabetes mellitus [facility] insulin use: with manager long term care use Diabetes mellitus complication status: without complication Qualified Code(s): E11.9 - Type 2 diabetes mellitus without complications (11) Hyperlipidemia Current Visit: Yes Status: Chronic Cleared for Admission S - Detox or Rehab S Level of Care: Medically Managed Detox Regimen/Protocol: Librium [facility] Breath Alcohol Content Breath Alcohol Content: 0.090 Urine Drug Screen - Results Drug Screen Negative: No Urine Drug Screen Results: BZO-Benzodiazepines, MTD-Methadone
[2018-04-15] MEDS ORDERED: MENTHOL/PHENOL 1 EACH UD MM PRN (00:02)
[2018-04-15] MEDS ORDERED: guaiFENesin/D-METHORPHAN HB 10 ML UNIT-DOSE CUPS PO PRN (00:02)
[2018-04-15] MEDS ORDERED: MAG HYDROX/AL HYDROX/SIMETH 30 ML UNIT-DOSE CUP PO PRN (00:02)
[2018-04-15] MEDS ORDERED: MAGNESIUM HYDROX 2400MG/30ML ORAL SUSPENSION 30 ML CUP PO PRN (00:02)
[2018-04-15] MEDS ORDERED: ACETAMINOPHEN 325 MG TABLET (FP) PO PRN (00:02)
[2018-04-15] MEDS ORDERED: chlordiazePOXIDE HCL 25 MG CAPSULE PO PRN (00:02)
[2018-04-15] MEDS ORDERED: P-EPHED 60MG/TRIPROLIDI 2.5MG TABLET PO PRN (00:02)
[2018-04-15] MEDS ORDERED: MAGNESIUM CITRATE 300 ML BOTTLE PO PRN (00:02)
[2018-04-15] MEDS ORDERED: chlordiazePOXIDE HCL 25 MG CAPSULE PO ONE (00:02)
[2018-04-15] MEDS ORDERED: ALBUTEROL SO4 8 GM HFA INHALER IH PRN (00:03)
[2018-04-15] MEDS: INSULIN SLIDING SCALE (NOVOLOG) 1 VIAL SQ SCH ×4 (01:50→16:58)
[2018-04-15] MEDS: chlordiazePOXIDE HCL 25 MG CAPSULE PO SCH ×4 (05:18→22:13)
[2018-04-15] MEDS: metFORMIN HCL 500 MG TABLET (FP) PO SCH (06:04)
[2018-04-15] MEDS ORDERED: INSULIN (NOVOLOG) ASPART 100 UNITS/ML 10ML VIAL ONE ×3 (07:30→16:55)
[2018-04-15] MEDS ORDERED: METHADONE HCL 10 MG TABLET PO SCH (09:00)
[2018-04-15] MEDS ORDERED: METHADONE HCL 10 MG TABLET ONE (09:59)
[2018-04-15] MEDS ORDERED: METHADONE HCL 40 MG DISPERSABLE TABLET ONE (10:00)
[2018-04-15] MEDS: METHADONE 80 MG, METHADONE 10 MG PO SCH (10:10)
[2018-04-15] MEDS: cloNIDine HCL 0.1 MG TABLET PO SCH ×2 (10:11→21:05)
[2018-04-15] MEDS: PRENATAL VITAMINS W/ FOLIC ACID TABLET (FP) PO SCH (10:11)
[2018-04-15] MEDS: ASPIRIN COATED 81 MG TABLET.EC PO SCH (10:12)
[2018-04-15] MEDS: BUDESONIDE/FORMETEROL FUMARATE 160/4.5 mcg INHALER IH SCH ×2 (10:12→21:49)
--- NOTE | 2018-04-15 11:27 | PN ---
S CIWA - CIWA Score Nausea/Vomitin-No Nausea/No Vomiting Muscle Tremors: None Anxiety: 2 Agitation: 2 Paroxysmal Sweats: 2 Orientation: 0-Oriented Tacttile Disturbances: 2-Mild Itch/Numbness/Burn Auditory Disturbances: 0-None Visual Disturbances: 0-None Headache: 0-None Present CIWA-Ar Total Score: 8 BHS Progress Note (SOAP) Subjective: PATIENT C/O MILD SWEATING, ANXIETY AND NUMBNESS/TINGLING TO FEET Objective: 04/15/18 11:24 Laboratory Tests 04/14/18 04/15/18 22:56 05:18 POC Glucometer 294 220 Vital Signs Temperature 97.5 F L 04/15/18 09:37 Pulse Rate 77 04/15/18 09:37 Respiratory Rate 18 04/15/18 09:37 Blood Pressure 175/94 H 04/15/18 09:37 O2 Sat by Pulse Oximetry (%) PE: SKIN WARM AND MOIST CAR S1S2 RESP CTA BL EXT FULL ROM , AMB AD ROCIO ALERT AND ORIENTED X 3 Assessment: 04/15/18 11:25 WITHDRAWAL SX Plan: CONTINUE DETOX ENCOURAGE ORAL FLUIDS MONITOR BP, ELEVATION MAY BE DUE TO PENDING MTD DOSE VERIFICATION WAS JUST COMPLETED BY RN, IF STILL ELEVATED-TREAT WITH CLONIDINE. CONTINUE TO MONITOR CLINICALLY
--- NOTE | 2018-04-15 12:59 | EKG ---
Test Reason : Blood Pressure : / mmHG Vent. Rate : 085 BPM Atrial Rate : 085 BPM P-R Int : 138 ms QRS Dur : 090 ms QT Int : 380 ms P-R-T Axes : 060 026 052 degrees QTc Int : 452 ms NORMAL SINUS RHYTHM POSSIBLE LEFT ATRIAL ENLARGEMENT BORDERLINE ECG Confirmed by MD ADELA, KYLE ([id number]) on 04/15/2018 12:58:46 PM Referred By: Confirmed By:KYLE CHAPMAN MD
[2018-04-15] MEDS: IBUPROFEN 400 MG TABLET (FP) PO PRN (16:51)
--- NOTE | 2018-04-15 18:24 | CONSULT ---
[facility] Psychiatric Consult - Data Date of interview: 04/15/18 Admission source: [facility] Identifying data: Another admission to [facility] for this 62 y/o AA male seeking detoxification treatment, on , for alcohol and opioid dependence.Patient is single,a father of one,domiciled,unemployed and supported on welfare. Substance Abuse History: Confirmed by the patient in this interview. Details in current [facility] report : Smoking history: Never smoked. Have you smoked in the past 12 months: No. Aproximately how many cigarettes per day: 0. Cigars Per Day: 0. Hx Chewing Tobacco Use: No. Initiated information on smoking cessation : No. - Substance & Tx. History. Hx Alcohol Use: Yes. Hx Substance Use: Yes. Substance Use Type: Alcohol, Cocaine. Hx Substance Use Treatment: Yes ([facility]) . - Substances Abused. Alcohol. Route: Oral. Frequency: Daily. Amount used: liquor- 3 pints, beer- 1 six pack. Age of first use: 18. Date of Last Use: 04/14/18 Medical History: Hypertension, insulin-dependent diabetes mellitus, arthritis, COPD, GERD, hypercholesterolemia, antecedent of myocardial infarction, left inguinal herniorraphy (1979) and a past history of syphilis (treated). Additional history of foot surgery (corn removal from right great toe) in 2016. Psychiatric History: Patient denies history of psychiatric hospitalizations.Mr Barth is on methadone maintenance (90 mg/day) at the [facility] in the [place]. No reported history of suicide attempts.Patient declares that he is not on any psychotropic drug other than methadone. Physical/Sexual Abuse/Trauma History: Patient denies. Additional Comment: Urine Drug Screen Results: BZO-Benzodiazepines, MTD- Methadone. Noted. Mental Status Exam - Mental Status Exam Alert and Oriented to: Time, Place, Person Cognitive Function: Good Patient Appearance: Well Groomed Mood: Withdrawn, Apprehensive, Hopeful Affect: Normal Range Patient Behavior: Fatigued, Cooperative Speech Pattern: Clear, Appropriate Voice Loudness: Normal Thought Process: Goal Oriented Thought Disorder: Not Present Hallucinations: Denies Suicidal Ideation: Denies Homicidal Ideation: Denies Insight/Judgement: Poor Sleep: Poorly, Difficulty falling asleep (requests ambien ) Appetite: Good Muscle strength/Tone: Normal Gait/Station: Normal Psychiatric Findings - Problem List ([place] 1, 2,3) (1) Opioid dependence on agonist therapy Current Visit: Yes Status: Acute (2) Alcohol dependence with uncomplicated withdrawal Current Visit: Yes Status: Acute (3) Substance induced mood disorder Current Visit: Yes Status: Acute (4) Insomnia Current Visit: Yes Status: Acute Qualifiers: Insomnia type: primary Qualified Code(s): F51.01 - Primary insomnia - Initial Treatment Plan Initial Treatment Plan: Psychoeducation. Sleep hygiene. Psychotherapy : individual, supportive, group. AA/NA meetings. Patient is encouraged to adhere to his methadone maintenance program. Ambien 10 mg po hs prn. Patient is made aware of the risk for parasomnias. Consent (verbal) given. Observation.
[2018-04-15] MEDS: INSULIN (LEVEMIR) 100 UNITS/ML UNITS SQ SCH (21:02)
[2018-04-15] MEDS: THIAMINE HCL 100 MG TABLET (FP) PO SCH (21:05)
[2018-04-15] MEDS: ATORVASTATIN CA 40 MG TABLET (FP) PO SCH (21:05)
[2018-04-15] MEDS: ZOLPIDEM TARTRATE 5 MG TABLET PO PRN (21:08)
[2018-04-15] MEDS ORDERED: MELATONIN 5 MG TABLETS PO PRN (22:00)
[2018-04-16] MEDS ORDERED: METHADONE HCL 10 MG TABLET ONE (03:37)
[2018-04-16] MEDS ORDERED: METHADONE HCL 40 MG DISPERSABLE TABLET ONE (03:37)
[2018-04-16] MEDS: METHADONE 80 MG, METHADONE 10 MG PO SCH (05:40)
[2018-04-16] MEDS: chlordiazePOXIDE HCL 25 MG CAPSULE PO SCH ×4 (05:40→22:23)
[2018-04-16] MEDS: metFORMIN HCL 500 MG TABLET (FP) PO SCH (06:13)
[2018-04-16] MEDS ORDERED: INSULIN (NOVOLOG) ASPART 100 UNITS/ML 10ML VIAL ONE ×3 (06:23→16:53)
[2018-04-16] MEDS: INSULIN SLIDING SCALE (NOVOLOG) 1 VIAL SQ SCH ×3 (06:26→17:00)
[2018-04-16] MEDS: BUDESONIDE/FORMETEROL FUMARATE 160/4.5 mcg INHALER IH SCH ×2 (10:03→22:29)
[2018-04-16] MEDS: ASPIRIN COATED 81 MG TABLET.EC PO SCH (10:03)
[2018-04-16] MEDS: PRENATAL VITAMINS W/ FOLIC ACID TABLET (FP) PO SCH (10:03)
[2018-04-16] MEDS: cloNIDine HCL 0.1 MG TABLET PO SCH ×2 (10:03→22:23)
[2018-04-16] MEDS: IBUPROFEN 400 MG TABLET (FP) PO PRN ×2 (10:05→17:04)
--- NOTE | 2018-04-16 12:19 | PN ---
S CIWA - CIWA Score Nausea/Vomitin-No Nausea/No Vomiting Muscle Tremors: 1-None Visible, but [place] Anxiety: 2 Agitation: 2 Paroxysmal Sweats: 2 Orientation: 0-Oriented Tacttile Disturbances: 0-None Auditory Disturbances: 0-None Visual Disturbances: 0-None Headache: 2-Mild CIWA-Ar Total Score: 9 BHS Progress Note (SOAP) Subjective: PATIENT C/O HEADACHE, SWEATING AND ANXIETY/RESTLESS. Objective: 04/16/18 12:15 Laboratory Tests 04/14/18 04/15/18 04/15/18 22:56 05:18 11:18 POC Glucometer 294 220 235 04/15/18 04/15/18 04/16/18 16:21 20:44 05:39 POC Glucometer 255 340 364 04/16/18 11:29 POC Glucometer 232 Vital Signs Temperature 97.1 F L 04/16/18 10:32 Pulse Rate 59 L 04/16/18 10:32 Respiratory Rate 18 04/16/18 10:32 Blood Pressure 119/71 04/16/18 10:32 O2 Sat by Pulse Oximetry (%) SKIN WARM AND MOIST CAR S1S2 RESP CTA BL EXT FULL ROM ALERT AND ORIENTED X 3 Assessment: 04/16/18 12:19 WITHDRAWAL SX Plan: CONTINUE DETOX ENCOURAGE ORAL FLUIDS CONTINUE TO MONITOR
[2018-04-16 14:29] LABS: HEMATOCRIT 36.5 % (35.4-49); HEMOGLOBIN 11.6 GM/dL (11.7-16.9); MCH 27.2 pg (25.7-33.7); MCHC 31.7 g/dl (32.0-35.9); MEAN CELL VOLUME 85.8 fl (80-96); MEAN PLT VOLUME 8.4 fl (7.5-11.1); PLATELET COUNT 236 K/MM3 (134-434); RBC 4.26 M/mm3 (4.00-5.60); RDW 18.1 % (11.9-15.9); WHITE BLOOD COUNT 3.5 K/mm3 (4.0-10.0)
[2018-04-16 14:46] LABS: ALBUMIN 2.8 g/dl (3.4-5.0); ALK PHOS 113 U/L (45-117); ANION GAP 9 MMOL/L (8-16); BILIRUBIN,TOTAL 0.3 mg/dL (0.2-1); BLOOD UREA NITROGEN 10 mg/dL (7-18); CALCIUM 8.9 mg/dL (8.5-10.1); CHLORIDE 95 mmol/L (98-107); CO2 28 mmol/L (21-32); SGOT/AST 29 U/L (15-37); SGPT/ALT 18 U/L (13-61); SODIUM 133 mmol/L (136-145); TOT PROT 8.3 g/dl (6.4-8.2)
[2018-04-16 15:41] LABS: GLUCOSE,RANDOM 402 mg/dL (74-106)
[2018-04-16] MEDS: ATORVASTATIN CA 40 MG TABLET (FP) PO SCH (22:23)
[2018-04-16] MEDS: INSULIN (LEVEMIR) 100 UNITS/ML UNITS SQ SCH (22:24)
[2018-04-16] MEDS: ZOLPIDEM TARTRATE 5 MG TABLET PO PRN (22:24)
[2018-04-16] MEDS: THIAMINE HCL 100 MG TABLET (FP) PO SCH (22:24)
[2018-04-16 23:27] LABS: URINE APPEARANCE CLEAR; URINE BILIRUBIN NEGATIVE (<2.0 mg/dL); URINE COLOR YELLOW; URINE GLUCOSE (UA) 1+ (NEGATIVE); URINE KETONE NEGATIVE (NEGATIVE); URINE LEUK ESTERASE NEGATIVE (NEGATIVE); URINE NITRITE NEGATIVE (NEGATIVE); URINE PROTEIN NEGATIVE (NEGATIVE); URINE UROBILINOGEN NEGATIVE mg/dL (0.2-1.0)
[2018-04-17] MEDS ORDERED: METHADONE HCL 10 MG TABLET ONE (04:45)
[2018-04-17] MEDS ORDERED: METHADONE HCL 40 MG DISPERSABLE TABLET ONE (04:45)
[2018-04-17] MEDS: METHADONE 80 MG, METHADONE 10 MG PO SCH (05:12)
[2018-04-17] MEDS: chlordiazePOXIDE 5 MG CAPSULE PO SCH ×4 (05:13→22:01)
[2018-04-17] MEDS ORDERED: INSULIN (NOVOLOG) ASPART 100 UNITS/ML 10ML VIAL ONE ×2 (06:15→11:32)
[2018-04-17] MEDS: metFORMIN HCL 500 MG TABLET (FP) PO SCH (06:53)
[2018-04-17] MEDS: INSULIN SLIDING SCALE (NOVOLOG) 1 VIAL SQ SCH ×3 (06:53→16:33)
[2018-04-17] MEDS: PRENATAL VITAMINS W/ FOLIC ACID TABLET (FP) PO SCH (10:06)
[2018-04-17] MEDS: ASPIRIN COATED 81 MG TABLET.EC PO SCH (10:06)
[2018-04-17] MEDS: cloNIDine HCL 0.1 MG TABLET PO SCH ×2 (10:06→21:26)
[2018-04-17] MEDS: BUDESONIDE/FORMETEROL FUMARATE 160/4.5 mcg INHALER IH SCH ×2 (10:07→21:26)
[2018-04-17] MEDS: LOPERAMIDE HCL 2 MG CAPSULE PO PRN ×2 (10:07→17:13)
--- NOTE | 2018-04-17 11:53 | PN ---
[facility] Progress Note Note: PATIENT CONTINUES WITH DETOX REGIMEN. C/O DIARRHEA. Laboratory Tests 04/14/18 04/15/18 04/15/18 22:56 05:18 11:18 WBC RBC Hgb Hct MCV MCH MCHC RDW Plt Count MPV Sodium Potassium Chloride Carbon Dioxide Anion Gap BUN Creatinine Creat Clearance w eGFR POC Glucometer 294 220 235 Random Glucose Calcium Total Bilirubin AST ALT Alkaline Phosphatase Total Protein Albumin Urine Color Urine Appearance Urine pH Ur Specific [place] Urine Protein Urine Glucose (UA) Urine Ketones Urine Blood Urine Nitrite Urine Bilirubin Urine Urobilinogen Ur Leukocyte Esterase RPR Titer 04/15/18 04/15/18 04/16/18 16:21 20:44 05:39 WBC RBC Hgb Hct MCV MCH MCHC RDW Plt Count MPV Sodium Potassium Chloride Carbon Dioxide Anion Gap BUN Creatinine Creat Clearance w eGFR POC Glucometer 255 340 364 Random Glucose Calcium Total Bilirubin AST ALT Alkaline Phosphatase Total Protein Albumin Urine Color Urine Appearance Urine pH Ur Specific [place] Urine Protein Urine Glucose (UA) Urine Ketones Urine Blood Urine Nitrite Urine Bilirubin Urine Urobilinogen Ur Leukocyte Esterase RPR Titer 04/16/18 04/16/18 04/16/18 07:15 07:15 07:15 WBC 3.5 L RBC 4.26 Hgb 11.6 L Hct 36.5 MCV 85.8 MCH 27.2 MCHC 31.7 L RDW 18.1 H Plt Count 236 D MPV 8.4 D Sodium 133 L Potassium 4.0 Chloride 95 L Carbon Dioxide 28 Anion Gap 9 BUN 10 Creatinine 1.0 Creat Clearance w eGFR > 60 POC Glucometer Random Glucose 402 H* Calcium 8.9 Total Bilirubin 0.3 AST 29 ALT 18 Alkaline Phosphatase 113 Total Protein 8.3 H Albumin 2.8 L Urine Color Urine Appearance Urine pH Ur Specific [place] Urine Protein Urine Glucose (UA) Urine Ketones Urine Blood Urine Nitrite Urine Bilirubin Urine Urobilinogen Ur Leukocyte Esterase RPR Titer Nonreactive 04/16/18 04/16/18 04/16/18 11:29 16:24 20:49 WBC RBC Hgb Hct MCV MCH MCHC RDW Plt Count MPV Sodium Potassium Chloride Carbon Dioxide Anion Gap BUN Creatinine Creat Clearance w eGFR POC Glucometer 232 237 340 Random Glucose Calcium Total Bilirubin AST ALT Alkaline Phosphatase Total Protein Albumin Urine Color Urine Appearance Urine pH Ur Specific [place] Urine Protein Urine Glucose (UA) Urine Ketones Urine Blood Urine Nitrite Urine Bilirubin Urine Urobilinogen Ur Leukocyte Esterase RPR Titer 04/16/18 04/17/18 21:06 05:12 WBC RBC Hgb Hct MCV MCH MCHC RDW Plt Count MPV Sodium Potassium Chloride Carbon Dioxide Anion Gap BUN Creatinine Creat Clearance w eGFR POC Glucometer 238 Random Glucose Calcium Total Bilirubin AST ALT Alkaline Phosphatase Total Protein Albumin Urine Color Yellow Urine Appearance Clear Urine pH 5.0 Ur Specific [place] 1.012 Urine Protein Negative Urine Glucose (UA) 1+ H Urine Ketones Negative Urine Blood Negative Urine Nitrite Negative Urine Bilirubin Negative Urine Urobilinogen Negative Ur Leukocyte Esterase Negative RPR Titer Vital Signs Temperature 97.6 F 04/17/18 09:44 Pulse Rate 101 H 04/17/18 09:44 Respiratory Rate 20 04/17/18 09:44 Blood Pressure 124/76 04/17/18 09:44 O2 Sat by Pulse Oximetry (%) SKIN WARM AND DRY CAR S1S2 RESP CTA BL EXT FULL ROM ALERT AND ORIENTED X 3 A/P WITHDRAWAL SX CONTINUE DETOX ENCOURAGE ORAL FLUIDS CONTINUE TO MONITOR
[2018-04-17] MEDS: INSULIN (LEVEMIR) 100 UNITS/ML UNITS SQ SCH (21:24)
[2018-04-17] MEDS: THIAMINE HCL 100 MG TABLET (FP) PO SCH (21:26)
[2018-04-17] MEDS: ATORVASTATIN CA 40 MG TABLET (FP) PO SCH (21:26)
[2018-04-17 21:36] VITALS: TEMP 98.4
[2018-04-17] MEDS: ZOLPIDEM TARTRATE 5 MG TABLET PO PRN (22:02)
[2018-04-18] MEDS ORDERED: METHADONE HCL 10 MG TABLET ONE (03:54)
[2018-04-18] MEDS ORDERED: METHADONE HCL 40 MG DISPERSABLE TABLET ONE (03:55)
[2018-04-18] MEDS ORDERED: chlordiazePOXIDE HCL 10 MG CAPSULE PO SCH (05:00)
[2018-04-18] MEDS: METHADONE 80 MG, METHADONE 10 MG PO SCH (05:49)
[2018-04-18 06:12] VITALS: BP 132/81; PULSE 91
[2018-04-18] MEDS: INSULIN SLIDING SCALE (NOVOLOG) 1 VIAL SQ SCH (06:12)
[2018-04-18] MEDS: metFORMIN HCL 500 MG TABLET (FP) PO SCH (06:12)
== END 2018-04-18 08:20 | disposition home or self-care (01) | DRG 773 ==
LOC: YASAS 18:12 → Y3N 22:16
PROC: HZ2ZZZZ Detoxification Services for Substance Abuse Treatment (ICD-10-PCS; principal; 2018-04-14)
DX: F10.230 Alcohol dependence with withdrawal, uncomplicated (principal); F11.20 Opioid dependence, uncomplicated; F19.24 Other psychoactive substance dependence with psychoactive substance-induced mood disorder; F51.01 Primary insomnia; F41.9 Anxiety disorder, unspecified; I10 Essential (primary) hypertension; E11.9 Type 2 diabetes mellitus without complications; Z79.4 Long term (current) use of insulin; E78.5 Hyperlipidemia, unspecified; J44.9 Chronic obstructive pulmonary disease, unspecified; K21.9 Gastro-esophageal reflux disease without esophagitis; E78.00 Pure hypercholesterolemia, unspecified; M12.9 Arthropathy, unspecified; Z86.19 Personal history of other infectious and parasitic diseases
CPT/HCPCS: 36415; 80053; 81003; 82962; 85027; 86593; 93005; 93010; J0735

== ENCOUNTER 2018-06-09 17:11 | Inpatient (IN) | payer OTHER ==
[2018-06-09 19:09] VITALS: BMI 30.7
--- NOTE | 2018-06-09 20:25 | HP ---
CIWA Score - Admission Criteria [facility] Guidelines: Admission for Medically Managed Detox: Requires at least one of the followin. CIWA greater than 12 2. Seizures within the past 24 hours 3. Delirium tremens within the past 24 hours 4. Hallucinations within the past 24 hours 5. Acute intervention needed for co occurring medical disorder 6. Acute intervention needed for co occurring psychiatric disorder 7. Severe withdrawal that cannot be handled at a lower level of care (continued vomiting, continued diarrhea, abnormal vital signs) requiring intravenous medication and/or fluids 8. Admission ROS [facility] - HPI Allergies/Adverse Reactions: Allergies Allergy/AdvReac Type Severity Reaction Status Date / Time No Known Drug Allergies Allergy Verified 06/09/18 19:40 lisinopril AdvReac Severe Swelling Verified 06/09/18 19:40 of the Face - Ebola screening Have you traveled outside of the country in the last 21 days: No (N) Have you had contact with anyone from an Ebola affected area: No Have you been sick,other than usual withdrawal symptoms: No Do you have a fever: No Patient History - Patient Medical History Hx Anemia: No Hx Asthma: No Hx Chronic Obstructive Pulmonary Disease (COPD): Yes (Not on medicatiom) Hx Cancer: No Hx Cardiac Disorders: No Hx Congestive Heart Failure: No Hx Hypertension: Yes Hx Hypercholesterolemia: Yes (Not on medication) Hx Pacemaker: No HX Cerebrovascular Accident: No Hx Seizures: No Hx Dementia: No Hx Diabetes: Yes Hx Gastrointestinal Disorders: No Hx Liver Disease: No Hx Genitourinary Disorders: No Hx Sexually Transmitted Disorders: No Hx Renal Disease (ESRD): No Hx Thyroid Disease: No Hx Human Immunodeficiency Virus (HIV): No (Negative 2017) Hx Hepatitis C: No Hx Depression: Yes (Not on medication) Hx Suicide Attempt: No Hx Bipolar Disorder: No Hx Schizophrenia: No - Patient Surgical History Past Surgical History: Yes Hx Neurologic Surgery: No Hx Cataract Extraction: No Hx Cardiac Surgery: No Hx Lung Surgery: No Hx Breast Surgery: No Hx Breast Biopsy: No Hx Abdominal Surgery: Yes (left inguinal hernia repair in 1979) Hx Appendectomy: No Hx Cholecystectomy: No Hx Genitourinary Surgery: No Hx Section: No Hx Orthopedic Surgery: No Other Surgical History: R FOOT CORN REMOVAL ON GREAT TOE 05/2016 Anesthesia Reaction: No - PPD History Date: 07/26/17 Results: 0 MM - Smoking Cessation Smoking history: Never smoked Have you smoked in the past 12 months: No Aproximately how many cigarettes per day: 0 Cigars Per Day: 0 Hx Chewing Tobacco Use: No - Substances Abused Alcohol Route: Oral Frequency: Daily Amount used: 1 [place] Age of first use: 18 Date of Last Use: 06/09/18 Family Disease History - Family Disease History Family Disease History: Diabetes: Mother (htn), Heart Disease: Mother, Respiratory: Sister (PN ), Other: Grandparent (htn), Father (htn ) Admission Physical Exam BHS - Vital Signs Vital Signs: Vital Signs - 24 hr 06/09/18 19:05 Temperature 96.9 F L Pulse Rate 75 Respiratory 20 Rate Blood Pressure 157/96 BHS Breath Alcohol Content Breath Alcohol Content: 0.117 Urine Drug Screen - Results Drug Screen Negative: No Urine Drug Screen Results: BZO-Benzodiazepines, MTD-Methadone
--- NOTE | 2018-06-09 20:43 | HP ---
CIWA Score Nausea/Vomitin Muscle Tremors: 2 Anxiety: 2 Agitation: 2 Paroxysmal Sweats: 4-Forehead w/Sweat Beads Orientation: 0-Oriented Tacttile Disturbances: 0-None Auditory Disturbances: 0-None Visual Disturbances: 0-None Headache: 3-Moderate CIWA-Ar Total Score: 15 - Admission Criteria OASAS Guidelines: Admission for Medically Managed Detox: Requires at least one of the followin. CIWA greater than 12 2. Seizures within the past 24 hours 3. Delirium tremens within the past 24 hours 4. Hallucinations within the past 24 hours 5. Acute intervention needed for co occurring medical disorder 6. Acute intervention needed for co occurring psychiatric disorder 7. Severe withdrawal that cannot be handled at a lower level of care (continued vomiting, continued diarrhea, abnormal vital signs) requiring intravenous medication and/or fluids 8. Patient presents the following: CIWA greater than 12 Admission Criteria Met: Admission criteria met Admission ROS [facility] Chief Complaint: here for alcohol detox- He is on Methadone 90mg at [facility]- Dose to be verified by the nurse.. Last visit 04/14-04/18 for detox long history of alcohol dependence- since high school, 1 pint of nafisa and/or 6 pack of beer a day He has medical history of DM type 2- novolog 10units with each meal, lantus 20u at night, metformin 500mg qd, L 2nd toe deformity-ulcer asthma- albuterol, hypertension- clonidine, hyperlipidemia, depression and anxiety allergies--benadryl 50mg BID DUR: no recent prescribed controlled substances Urine tox: pos for MTD and Banzo, SEAN pos Allergies/Adverse Reactions: Allergies Allergy/AdvReac Type Severity Reaction Status Date / Time No Known Drug Allergies Allergy Verified 06/09/18 19:40 lisinopril AdvReac Severe Swelling Verified 06/09/18 19:40 of the Face Exam Limitations: No Limitations - Ebola screening Have you traveled outside of the country in the last 21 days: No (N) Have you had contact with anyone from an Ebola affected area: No Have you been sick,other than usual withdrawal symptoms: No Do you have a fever: No Patient History - Patient Medical History Hx Anemia: No Hx Asthma: No Hx Chronic Obstructive Pulmonary Disease (COPD): Yes (Not on medicatiom) Hx Cancer: No Hx Cardiac Disorders: No Hx Congestive Heart Failure: No Hx Hypertension: Yes Hx Hypercholesterolemia: Yes (Not on medication) Hx Pacemaker: No HX Cerebrovascular Accident: No Hx Seizures: No Hx Dementia: No Hx Diabetes: Yes (on insulin) Hx Gastrointestinal Disorders: No Hx Liver Disease: No Hx Genitourinary Disorders: No Hx Sexually Transmitted Disorders: No Hx Renal Disease (ESRD): No Hx Thyroid Disease: No Hx Human Immunodeficiency Virus (HIV): No (Negative 2017) Hx Hepatitis C: No Hx Depression: Yes (Not on medication) Hx Suicide Attempt: No Hx Bipolar Disorder: No Hx Schizophrenia: No - Patient Surgical History Past Surgical History: Yes Hx Neurologic Surgery: No Hx Cataract Extraction: No Hx Cardiac Surgery: No Hx Lung Surgery: No Hx Breast Surgery: No Hx Breast Biopsy: No Hx Abdominal Surgery: Yes (left inguinal hernia repair in 1979) Hx Appendectomy: No Hx Cholecystectomy: No Hx Genitourinary Surgery: No Hx Section: No Hx Orthopedic Surgery: No Other Surgical History: R FOOT CORN REMOVAL ON GREAT TOE 05/2016 Anesthesia Reaction: No - PPD History Date: 07/26/17 Results: 0 MM - Smoking Cessation Smoking history: Never smoked Have you smoked in the past 12 months: No Aproximately how many cigarettes per day: 0 Cigars Per Day: 0 Hx Chewing Tobacco Use: No - Substance & Tx. History Hx Alcohol Use: Yes Substance Use Type: Alcohol, Prescribed (methadone) - Substances Abused Alcohol Route: Oral Frequency: Daily Amount used: 1 PINT NAFISA Age of first use: 18 Date of Last Use: 06/09/18 Family Disease History - Family Disease History Family Disease History: Diabetes: Mother (htn), Heart Disease: Mother, Respiratory: Sister (PN ), Other: Grandparent (htn), Father (htn ) Admission Physical Exam BHS - Vital Signs Vital Signs: Vital Signs - 24 hr 06/09/18 19:05 Temperature 96.9 F L Pulse Rate 75 Respiratory 20 Rate Blood Pressure 157/96 - Physical General Appearance: Yes: Within Normal Limits, Disheveled HEENTM: Yes: Within Normal Limits, Hearing grossly Normal, Other (poor dentition ) Respiratory: Yes: Within Normal Limits, Lungs Clear Neck: Yes: Within Normal Limits, No masses,lesions,Nodules Cardiology: Yes: Within Normal Limits, Regular Rate, S1, S2 Abdominal: Yes: Within Normal Limits, Protuberent Genitourinary: Yes: Within Normal Limits Back: Yes: Within Normal Limits Musculoskeletal: Yes: Within Normal Limits, Gait Steady (uses cane) Extremities: Yes: Within Normal Limits, Normal Inspection, Other (L 2nd toe- deformed- no open wound noted) Integumentary: Yes: Within Normal Limits Lymphatic: Yes: Within Normal Limits - Diagnostic (1) Alcohol dependence with uncomplicated withdrawal Current Visit: No Status: Acute (2) Drug-induced mood disorder Current Visit: No Status: Acute (3) Elevated blood pressure reading with diagnosis of hypertension Current Visit: No Status: Acute (4) Anxiety Current Visit: No Status: Chronic (5) Asthma Current Visit: No Status: Chronic Qualifiers: Asthma severity: unspecified severity Asthma persistence: unspecified Asthma complication type: with status asthmaticus Qualified Code(s): J45.902 - Unspecified asthma with status asthmaticus (6) Essential hypertension Current Visit: No Status: Chronic (7) IDDM (insulin dependent diabetes mellitus) Current Visit: No Status: Chronic (8) Methadone maintenance therapy patient Current Visit: No Status: Chronic Comment: 90 MG LAST DOSE 06/07/16 VERIFICAITON PENDING Cleared for Admission [facility] - Detox or Rehab [facility] Level of Care: Medically Managed [facility] Breath Alcohol Content Breath Alcohol Content: 0.117 Urine Drug Screen - Results Drug Screen Negative: No Urine Drug Screen Results: BZO-Benzodiazepines, MTD-Methadone
[2018-06-09] MEDS ORDERED: MAG HYDROX/AL HYDROX/SIMETH 30 ML UNIT-DOSE CUP PO PRN (20:56)
[2018-06-09] MEDS ORDERED: P-EPHED 60MG/TRIPROLIDI 2.5MG TABLET PO PRN (20:56)
[2018-06-09] MEDS ORDERED: LOPERAMIDE HCL 2 MG CAPSULE PO PRN (20:56)
[2018-06-09] MEDS ORDERED: ACETAMINOPHEN 325 MG TABLET (FP) PO PRN (20:56)
[2018-06-09] MEDS ORDERED: MENTHOL/PHENOL 1 EACH UD MM PRN (20:56)
[2018-06-09] MEDS ORDERED: IBUPROFEN 400 MG TABLET (FP) PO PRN (20:56)
[2018-06-09] MEDS ORDERED: MAGNESIUM CITRATE 300 ML BOTTLE PO PRN (20:56)
[2018-06-09] MEDS ORDERED: MAGNESIUM HYDROX 2400MG/30ML ORAL SUSPENSION 30 ML CUP PO PRN (20:56)
[2018-06-09] MEDS ORDERED: guaiFENesin/D-METHORPHAN HB 10 ML UNIT-DOSE CUPS PO PRN (20:56)
[2018-06-09] MEDS ORDERED: ALBUTEROL SO4 8 GM HFA INHALER IH PRN (20:58)
[2018-06-09] MEDS ORDERED: chlordiazePOXIDE HCL 25 MG CAPSULE PO PRN (20:58)
[2018-06-09] MEDS ORDERED: MELATONIN 5 MG TABLETS PO PRN (22:00)
[2018-06-09] MEDS ORDERED: PATIENT'S OWN MEDICATION (NON-FORMULARY) (Clonidine Hcl [Clonidine Hcl] 0.3 MG) PO SCH (22:00)
[2018-06-09] MEDS: chlordiazePOXIDE HCL 25 MG CAPSULE PO SCH (22:01)
[2018-06-09] MEDS: INSULIN (LEVEMIR) 100 UNITS/ML UNITS SQ SCH (22:01)
[2018-06-09] MEDS: cloNIDine HCL 0.1 MG TABLET PO SCH (22:01)
[2018-06-09] MEDS: THIAMINE HCL 100 MG TABLET (FP) PO SCH (22:01)
[2018-06-10] MEDS: chlordiazePOXIDE HCL 25 MG CAPSULE PO SCH ×4 (05:16→22:03)
[2018-06-10] MEDS: metFORMIN HCL 500 MG TABLET (FP) PO SCH (06:15)
[2018-06-10] MEDS: INSULIN SLIDING SCALE (NOVOLOG) 1 VIAL SQ SCH ×2 (08:24→12:47)
--- NOTE | 2018-06-10 09:43 | PN ---
[facility] CIWA - CIWA Score Nausea/Vomitin-Mild Nausea/No Vomiting Muscle Tremors: 3 Anxiety: 3 Agitation: 3 Paroxysmal Sweats: 1-Minimal Palms Moist Orientation: 1-Uncertain about Date Tacttile Disturbances: 1-Very Mild Itch/Numbness Auditory Disturbances: 0-None Visual Disturbances: 0-None Headache: 1-Very Mild CIWA-Ar Total Score: 14 [facility] COWS - Scale Resting Pulse: 0= AR 80 or Below Sweatin= Chills/Flushing Restless Observation: 0= Sits Still Pupil Size: 0= Normal to Room Light Bone or Joint Aches: 2= Severe Diffuse Aches Runny Nose/ Eye Tearin= Nasal Congestion GI Upset > 30mins: 2= Nausea/Diarrhea Tremor Observation of Outstretched Hands: 1= Tremor [place], Not Seen Yawning Observation: 2= >3x During Session Anxiety or Irritability: 1=Feels Anxious/Irritable Goose Flesh Skin: 0=Smooth Skin COWS Score: 10 [facility] Progress Note (SOAP) Subjective: methadone 90 mg verified tremor sweat trouble sleep at night body aches restlessness anxiety Objective: 06/10/18 09:43 Vital Signs Temperature 97.6 F 06/10/18 07:43 Pulse Rate 92 H 06/10/18 08:30 Respiratory Rate 18 06/10/18 08:30 Blood Pressure 106/65 06/10/18 07:43 O2 Sat by Pulse Oximetry (%) Laboratory Last Values POC Glucometer 200 UNITS (80-120) 06/10/18 05:15 06/10/18 09:45 lab pending based on past lab result patient has uncontrollable DM health teaching on dietary regimen and risks for hyperglycemia Assessment: 06/10/18 09:46 withdrawal sx DM Plan: continue detox
[2018-06-10] MEDS ORDERED: METHADONE HCL 10 MG TABLET PO ONE (10:00)
[2018-06-10] MEDS ORDERED: METHADONE 80 MG, METHADONE 10 MG PO ONE (10:00)
[2018-06-10] MEDS ORDERED: METHADONE HCL 40 MG DISPERSABLE TABLET ONE (10:08)
[2018-06-10] MEDS ORDERED: METHADONE HCL 10 MG TABLET ONE (10:08)
[2018-06-10] MEDS: ASPIRIN COATED 81 MG TABLET.EC PO SCH (10:09)
[2018-06-10] MEDS: cloNIDine HCL 0.1 MG TABLET PO SCH ×2 (10:09→22:03)
[2018-06-10] MEDS: PRENATAL VITAMINS W/ FOLIC ACID TABLET (FP) PO SCH (10:09)
[2018-06-10 10:25] LABS: HEMATOCRIT 36.3 % (35.4-49); HEMOGLOBIN 11.2 GM/dL (11.7-16.9); MCH 26.8 pg (25.7-33.7); MCHC 30.8 g/dl (32.0-35.9); MEAN CELL VOLUME 87.1 fl (80-96); MEAN PLT VOLUME 8.8 fl (7.5-11.1); PLATELET COUNT 188 K/MM3 (134-434); RBC 4.16 M/mm3 (4.00-5.60); RDW 15.8 % (11.9-15.9); WHITE BLOOD COUNT 3.8 K/mm3 (4.0-10.0)
[2018-06-10 11:01] LABS: ALBUMIN 2.7 g/dl (3.4-5.0); ALK PHOS 99 U/L (45-117); ANION GAP 7 MMOL/L (8-16); BILIRUBIN,TOTAL 0.4 mg/dL (0.2-1); BLOOD UREA NITROGEN 10 mg/dL (7-18); CALCIUM 8.3 mg/dL (8.5-10.1); CHLORIDE 99 mmol/L (98-107); CO2 29 mmol/L (21-32); CREATININE 0.9 mg/dL (0.55-1.3); GLUCOSE,RANDOM 218 mg/dL (74-106); POTASSIUM 3.8 mmol/L (3.5-5.1); SGOT/AST 24 U/L (15-37); SGPT/ALT 17 U/L (13-61); SODIUM 135 mmol/L (136-145); TOT PROT 7.9 g/dl (6.4-8.2)
[2018-06-10] MEDS: RANITIDINE HCL 150 MG TABLET (FP) PO SCH ×2 (12:34→22:03)
--- NOTE | 2018-06-10 19:01 | CONSULT ---
[facility] Psychiatric Consult - Data Date of interview: 06/10/18 Admission source: [facility] Identifying data: Readmission to [facility] for this 63 y/o AA male seeking detoxification treatment, on , for alcohol and opioid dependence.Patient is single, a father of one, domiciled, unemployed and supported on welfare. Substance Abuse History: Discussed with patient. Details in [facility] report : Smoking history: Never smoked. Have you smoked in the past 12 months: No. Aproximately how many cigarettes per day: 0. Cigars Per Day: 0. Hx Chewing Tobacco Use: No. - Substance & Tx. History. Hx Alcohol Use: Yes. Substance Use Type: Alcohol, Prescribed (methadone). - Substances Abused. Alcohol. Route: Oral. Frequency: Daily. Amount used: 1 PINT DANO. Age of first use: 18. Date of Last Use: 06/09/18 Medical History: No change since encounter of 03/2018 : Hypertension, insulin- dependent diabetes mellitus, arthritis, COPD, GERD, hypercholesterolemia, antecedent of myocardial infarction, left inguinal herniorraphy (1979) and a past history of syphilis (treated). Additional history of foot surgery (corn removal from right great toe) in 2015. Psychiatric History: Patient denies history of psychiatric hospitalizations. Denies having a mental illness. Mr Barth is on methadone maintenance (90 mg/ day) at the [facility] in the [place]. No reported history of suicide attempts. Patient requests trazodone at bedtime to address chronic insomnia. Physical/Sexual Abuse/Trauma History: Patient denies. Additional Comment: Urine Drug Screen Results: BZO-Benzodiazepines, MTD- Methadone. Noted. Mental Status Exam - Mental Status Exam Alert and Oriented to: Time, Place, Person Cognitive Function: Good Patient Appearance: Well Groomed Mood: Withdrawn Affect: Appropriate, Normal Range Patient Behavior: Fatigued, Appropriate, Cooperative Speech Pattern: Clear Voice Loudness: Normal Thought Process: Intact, Goal Oriented Thought Disorder: Not Present Hallucinations: Denies Suicidal Ideation: Denies Homicidal Ideation: Denies Insight/Judgement: Poor Sleep: Poorly, Difficulty falling asleep Appetite: Good Muscle strength/Tone: Normal Gait/Station: Normal Psychiatric Findings - Problem List ([place] 1, 2,3) (1) Alcohol dependence with uncomplicated withdrawal Current Visit: Yes Status: Acute (2) Opioid dependence on agonist therapy Current Visit: Yes Status: Chronic (3) Insomnia Current Visit: Yes Status: Chronic Qualifiers: Insomnia type: primary Qualified Code(s): F51.01 - Primary insomnia - Initial Treatment Plan Initial Treatment Plan: Psychoeducation, Sleep hygiene. Detoxification in progress. Support. Trazodone 50 mg po hs. Patient is made aware of risk of priapism. Consent (verbal) granted to MD. Cruz.
[2018-06-10] MEDS: INSULIN SLIDING SCALE (NOVOLOG) 1 VIAL SQ PRN (20:36)
[2018-06-10] MEDS: INSULIN (LEVEMIR) 100 UNITS/ML UNITS SQ SCH (22:02)
[2018-06-10] MEDS: THIAMINE HCL 100 MG TABLET (FP) PO SCH (22:03)
[2018-06-11] MEDS ORDERED: METHADONE HCL 10 MG TABLET ONE (04:14)
[2018-06-11] MEDS ORDERED: METHADONE HCL 40 MG DISPERSABLE TABLET ONE (04:14)
[2018-06-11] MEDS: METHADONE 80 MG, METHADONE 10 MG PO SCH (05:15)
[2018-06-11] MEDS: chlordiazePOXIDE HCL 25 MG CAPSULE PO SCH ×3 (05:15→17:03)
[2018-06-11] MEDS ORDERED: METHADONE HCL 10 MG TABLET PO SCH (06:00)
[2018-06-11] MEDS: metFORMIN HCL 500 MG TABLET (FP) PO SCH (06:10)
[2018-06-11] MEDS: RANITIDINE HCL 150 MG TABLET (FP) PO SCH ×2 (10:07→21:37)
[2018-06-11] MEDS: PRENATAL VITAMINS W/ FOLIC ACID TABLET (FP) PO SCH (10:07)
[2018-06-11] MEDS: ASPIRIN COATED 81 MG TABLET.EC PO SCH (10:07)
[2018-06-11] MEDS: INSULIN SLIDING SCALE (NOVOLOG) 1 VIAL SQ PRN (11:38)
[2018-06-11] MEDS: INSULIN SLIDING SCALE (NOVOLOG) 1 VIAL SQ SCH ×2 (12:40→17:03)
[2018-06-11] MEDS: cloNIDine HCL 0.1 MG TABLET PO SCH (13:37)
--- NOTE | 2018-06-11 14:20 | PN ---
S CIWA - CIWA Score Nausea/Vomitin-Mild Nausea/No Vomiting Muscle Tremors: 2 Anxiety: 1-Mildly Anxious Agitation: 1-Slight > Activity Paroxysmal Sweats: No Perspiration Orientation: 0-Oriented Tacttile Disturbances: 0-None Auditory Disturbances: 0-None Visual Disturbances: 0-None Headache: 0-None Present CIWA-Ar Total Score: 5 [facility] Progress Note (SOAP) Subjective: Pt states that he needs clonidine- on standing dose 0.3 mg BID- but pt has low BP, will change to 0.1mg BID Also pt requesting SS insulin coverage O: Vital Signs - 24 hr 06/10/18 06/10/18 06/10/18 14:30 15:00 15:30 Temperature Pulse Rate 128 H 87 109 H Respiratory 18 18 Rate Blood Pressure 06/10/18 06/10/18 06/10/18 16:00 16:30 17:00 Temperature Pulse Rate 118 H 90 65 Respiratory 18 18 18 Rate Blood Pressure 06/10/18 06/10/18 06/10/18 17:18 17:30 18:00 Temperature Pulse Rate 58 L 58 L 67 Respiratory 18 18 18 Rate Blood Pressure 146/89 06/10/18 06/10/1818 18:30 19:00 19:30 Temperature Pulse Rate 65 68 66 Respiratory 18 18 18 Rate Blood Pressure 06/10/18 06/10/18 06/10/18 20:00 20:30 21:00 Temperature Pulse Rate 58 L 60 62 Respiratory 18 18 18 Rate Blood Pressure 06/10/18 06/10/18 06/10/18 21:11 21:30 22:00 Temperature Pulse Rate 60 67 65 Respiratory 18 18 18 Rate Blood Pressure 178/93 H 06/10/18 06/11/18 06/11/18 23:27 06:04 09:39 Temperature 97.0 F L 97.1 F L Pulse Rate 52 L 59 L 60 Respiratory 20 18 18 Rate Blood Pressure 144/83 149/83 103/65 06/11/18 13:29 Temperature 98.6 F Pulse Rate 73 Respiratory 16 Rate Blood Pressure Laboratory Tests 06/10/18 06/10/18 06/10/18 05:15 07:00 07:00 WBC 3.8 L RBC 4.16 Hgb 11.2 L Hct 36.3 MCV 87.1 MCH 26.8 MCHC 30.8 L RDW 15.8 D Plt Count 188 D MPV 8.8 Sodium 135 L Potassium 3.8 Chloride 99 Carbon Dioxide 29 Anion Gap 7 L BUN 10 Creatinine 0.9 Creat Clearance w eGFR > 60 POC Glucometer 200 Random Glucose 218 H Hemoglobin A1c % Calcium 8.3 L Total Bilirubin 0.4 AST 24 ALT 17 Alkaline Phosphatase 99 Total Protein 7.9 Albumin 2.7 L RPR Titer 06/10/18 06/10/18 06/10/18 07:00 11:42 16:22 WBC RBC Hgb Hct MCV MCH MCHC RDW Plt Count MPV Sodium Potassium Chloride Carbon Dioxide Anion Gap BUN Creatinine Creat Clearance w eGFR POC Glucometer 182 145 Random Glucose Hemoglobin A1c % Calcium Total Bilirubin AST ALT Alkaline Phosphatase Total Protein Albumin RPR Titer Nonreactive 06/10/18 06/11/18 06/11/18 20:19 05:14 07:00 WBC RBC Hgb Hct MCV MCH MCHC RDW Plt Count MPV Sodium Potassium Chloride Carbon Dioxide Anion Gap BUN Creatinine Creat Clearance w eGFR POC Glucometer 312 252 Random Glucose Hemoglobin A1c % 8.0 H Calcium Total Bilirubin AST ALT Alkaline Phosphatase Total Protein Albumin RPR Titer a/p: continue detox protocol SS insuliin coverage changed to qid- AC/qhs clonidine 0.1mg BID
[2018-06-11] MEDS: cloNIDine HCL 0.1 MG TABLET PO PRN ×2 (15:13→19:15)
[2018-06-11] MEDS ORDERED: cloNIDine HCL 0.1 MG TABLET PO ONE ×2 (19:26)
[2018-06-11] MEDS: THIAMINE HCL 100 MG TABLET (FP) PO SCH (21:37)
[2018-06-11] MEDS: traZODone HCL 50 MG TABLET (FP) PO SCH (21:37)
[2018-06-11] MEDS: INSULIN (LEVEMIR) 100 UNITS/ML UNITS SQ SCH (21:37)
[2018-06-11] MEDS: chlordiazePOXIDE 5 MG CAPSULE PO SCH (22:21)
[2018-06-12] MEDS ORDERED: METHADONE HCL 10 MG TABLET ONE (04:24)
[2018-06-12] MEDS ORDERED: METHADONE HCL 40 MG DISPERSABLE TABLET ONE (04:24)
[2018-06-12] MEDS: chlordiazePOXIDE 5 MG CAPSULE PO SCH ×3 (05:15→17:39)
[2018-06-12] MEDS: cloNIDine HCL 0.1 MG TABLET PO PRN (05:15)
[2018-06-12] MEDS: METHADONE 80 MG, METHADONE 10 MG PO SCH (05:15)
[2018-06-12] MEDS: INSULIN SLIDING SCALE (NOVOLOG) 1 VIAL SQ SCH ×3 (06:17→17:42)
[2018-06-12] MEDS: metFORMIN HCL 500 MG TABLET (FP) PO SCH (06:17)
[2018-06-12] MEDS ORDERED: cloNIDine HCL 0.1 MG TABLET PO SCH ×3 (10:00→22:00)
[2018-06-12] MEDS: PRENATAL VITAMINS W/ FOLIC ACID TABLET (FP) PO SCH (10:04)
[2018-06-12] MEDS: ASPIRIN COATED 81 MG TABLET.EC PO SCH (10:04)
[2018-06-12] MEDS: RANITIDINE HCL 150 MG TABLET (FP) PO SCH ×2 (10:04→22:03)
--- NOTE | 2018-06-12 11:46 | PN ---
[facility] Progress Note Note: PATIENT CONTINUES WITH ETOH DETOX. PATIENT CONCERNED ABOUT BP. EXTERNAL MEDICATION HX SHOWS PATIENT PRESCRIBED CLONIDINE 0.2MG BID, LAST PRESCRIPTION . PATIENT C/O HEADACHE. DENIES CP, SOB AND DIZZINESS. Vital Signs Temperature 96.6 F L 06/12/18 09:19 Pulse Rate 63 06/12/18 09:19 Respiratory Rate 18 06/12/18 09:19 Blood Pressure 124/82 06/12/18 09:19 O2 Sat by Pulse Oximetry (%) Laboratory Tests 06/10/18 06/10/18 06/10/18 05:15 07:00 07:00 WBC 3.8 L RBC 4.16 Hgb 11.2 L Hct 36.3 MCV 87.1 MCH 26.8 MCHC 30.8 L RDW 15.8 D Plt Count 188 D MPV 8.8 Sodium 135 L Potassium 3.8 Chloride 99 Carbon Dioxide 29 Anion Gap 7 L BUN 10 Creatinine 0.9 Creat Clearance w eGFR > 60 POC Glucometer 200 Random Glucose 218 H Hemoglobin A1c % Calcium 8.3 L Total Bilirubin 0.4 AST 24 ALT 17 Alkaline Phosphatase 99 Total Protein 7.9 Albumin 2.7 L RPR Titer 06/10/18 06/10/18 06/10/18 07:00 11:42 16:22 WBC RBC Hgb Hct MCV MCH MCHC RDW Plt Count MPV Sodium Potassium Chloride Carbon Dioxide Anion Gap BUN Creatinine Creat Clearance w eGFR POC Glucometer 182 145 Random Glucose Hemoglobin A1c % Calcium Total Bilirubin AST ALT Alkaline Phosphatase Total Protein Albumin RPR Titer Nonreactive 06/10/18 06/11/18 06/11/18 20:19 05:14 07:00 WBC RBC Hgb Hct MCV MCH MCHC RDW Plt Count MPV Sodium Potassium Chloride Carbon Dioxide Anion Gap BUN Creatinine Creat Clearance w eGFR POC Glucometer 312 252 Random Glucose Hemoglobin A1c % 8.0 H Calcium Total Bilirubin AST ALT Alkaline Phosphatase Total Protein Albumin RPR Titer 06/11/18 06/11/18 06/11/18 11:35 16:23 20:47 WBC RBC Hgb Hct MCV MCH MCHC RDW Plt Count MPV Sodium Potassium Chloride Carbon Dioxide Anion Gap BUN Creatinine Creat Clearance w eGFR POC Glucometer 328 286 276 Random Glucose Hemoglobin A1c % Calcium Total Bilirubin AST ALT Alkaline Phosphatase Total Protein Albumin RPR Titer 06/12/18 05:14 WBC RBC Hgb Hct MCV MCH MCHC RDW Plt Count MPV Sodium Potassium Chloride Carbon Dioxide Anion Gap BUN Creatinine Creat Clearance w eGFR POC Glucometer 285 Random Glucose Hemoglobin A1c % Calcium Total Bilirubin AST ALT Alkaline Phosphatase Total Protein Albumin RPR Titer PE: ALERT AND ORIENTED X 3 SKIN WARM AND DRY CAR S1S2 RESP CTA BL EXT FULL ROM, AMB AD ROCIO A/P WITHDRAWAL SX ELEVATED BP WILL CHANGE CLONIDINE TO 0.2MG BID KELLY DIET CONTINUE DETOX CONTINUE TO MONITOR CLINICALLY
[2018-06-12] MEDS: INSULIN (LEVEMIR) 100 UNITS/ML UNITS SQ SCH (21:39)
[2018-06-12] MEDS: chlordiazePOXIDE HCL 10 MG CAPSULE PO SCH (22:02)
[2018-06-12] MEDS: THIAMINE HCL 100 MG TABLET (FP) PO SCH (22:02)
[2018-06-12] MEDS: traZODone HCL 50 MG TABLET (FP) PO SCH (22:03)
[2018-06-13] MEDS ORDERED: METHADONE HCL 10 MG TABLET ONE (04:40)
[2018-06-13] MEDS ORDERED: METHADONE HCL 40 MG DISPERSABLE TABLET ONE (04:41)
[2018-06-13] MEDS: chlordiazePOXIDE HCL 10 MG CAPSULE PO SCH (05:21)
[2018-06-13] MEDS: METHADONE 80 MG, METHADONE 10 MG PO SCH (05:21)
[2018-06-13] MEDS: metFORMIN HCL 500 MG TABLET (FP) PO SCH (06:08)
[2018-06-13] MEDS: INSULIN SLIDING SCALE (NOVOLOG) 1 VIAL SQ SCH (06:10)
[2018-06-13] MEDS ORDERED: INSULIN SLIDING SCALE (NOVOLOG) 1 VIAL SQ ONE (06:10)
[2018-06-13 06:21] VITALS: BP 164/90; PULSE 63; TEMP 98.6
--- NOTE | 2018-06-13 13:42 | DS ---
[facility] Detox Discharge Summary Admission Date: 06/09/18 Discharge Date: 06/13/18 - History Present History: Alcohol Dependence, Opioid Dependence, MMTP Pertinent Past History: pt admitted for alcohol use disorder- on MAT methadone. Detox protocol completed - Physical Exam Results Vital Signs: Vital Signs Temperature 98.6 F 06/13/18 06:20 Pulse Rate 63 06/13/18 06:20 Respiratory Rate 18 06/13/18 06:20 Blood Pressure 164/90 06/13/18 06:20 O2 Sat by Pulse Oximetry (%) - Medication Discharge Medications: Ambulatory Orders Insulin (Novolog) [Novolog Flexpen -] 10 units SQ TID 01/09/12 Gabapentin 100 mg PO TID 10/15/16 traZODone HCL [Desyrel -] 50 mg PO HS #30 tablet 07/24/17 Albuterol Sulfate Inhaler - [Ventolin HFA Inhaler -] 2 inh PO PRN PRN #1 inhaler 04/17/18 Aspirin Coated [Ecotrin -] 81 mg PO DAILY #30 tablet.ec 04/17/18 Atorvastatin Calcium 40 mg PO HS #30 tablet 04/17/18 Budesonide/Formeterol Fumarate [SYMBICORT 160/4.5mcg -] 2 inh PO BID #1 inhaler 04/17/18 Insulin Glargine,Hum.rec.anlog [Lantus Solostar PEN -] 20 units SQ HS #1 vial metFORMIN HCL [Glucophage -] 500 mg PO ACBK #30 tablet 04/17/18 Clonidine HCl 0.3 mg PO BID 06/09/18 - Diagnosis (1) Alcohol dependence with uncomplicated withdrawal Status: Acute (2) Drug-induced mood disorder Status: Acute (3) Elevated blood pressure reading with diagnosis of hypertension Status: Acute (4) Anxiety Status: Chronic (5) Asthma Status: Chronic Qualifiers: Asthma severity: unspecified severity Asthma persistence: unspecified Asthma complication type: with status asthmaticus Qualified Code(s): J45.902 - Unspecified asthma with status asthmaticus (6) Essential hypertension Status: Chronic (7) IDDM (insulin dependent diabetes mellitus) Status: Chronic (8) Methadone maintenance therapy patient Status: Chronic
== END 2018-06-13 08:35 | disposition home or self-care (01) | DRG 773 ==
LOC: YASAS 17:11 → Y3N 20:27
PROC: HZ2ZZZZ Detoxification Services for Substance Abuse Treatment (ICD-10-PCS; principal; 2018-06-09)
DX: F10.230 Alcohol dependence with withdrawal, uncomplicated (principal); F11.20 Opioid dependence, uncomplicated; F19.24 Other psychoactive substance dependence with psychoactive substance-induced mood disorder; F41.9 Anxiety disorder, unspecified; I10 Essential (primary) hypertension; G47.00 Insomnia, unspecified; E11.9 Type 2 diabetes mellitus without complications; K21.9 Gastro-esophageal reflux disease without esophagitis; E78.00 Pure hypercholesterolemia, unspecified; J44.9 Chronic obstructive pulmonary disease, unspecified; I25.2 Old myocardial infarction; Z87.438 Personal history of other diseases of male genital organs; Z79.4 Long term (current) use of insulin; Z79.82 Long term (current) use of aspirin; Z79.84 Long term (current) use of oral hypoglycemic drugs
CPT/HCPCS: 36415; 80053; 82962; 83036; 85027; 86593; J0735

== ENCOUNTER 2018-07-28 14:38 | Inpatient (IN) | payer OTHER ==
[2018-07-28 16:52] VITALS: BMI 28.3
--- NOTE | 2018-07-28 17:34 | HP ---
CIWA Score Nausea/Vomitin-No Nausea/No Vomiting Muscle Tremors: 4-Moderate,w/Arms Extend Anxiety: 0-No Anxiety, at Ease Agitation: 0-Normal Activity Paroxysmal Sweats: 4-Forehead w/Sweat Beads Orientation: 0-Oriented Tacttile Disturbances: 0-None Auditory Disturbances: 0-None Visual Disturbances: 0-None Headache: 0-None Present CIWA-Ar Total Score: 8 - Admission Criteria OASAS Guidelines: Admission for Medically Managed Detox: Requires at least one of the followin. CIWA greater than 12 2. Seizures within the past 24 hours 3. Delirium tremens within the past 24 hours 4. Hallucinations within the past 24 hours 5. Acute intervention needed for co occurring medical disorder 6. Acute intervention needed for co occurring psychiatric disorder 7. Severe withdrawal that cannot be handled at a lower level of care (continued vomiting, continued diarrhea, abnormal vital signs) requiring intravenous medication and/or fluids 8. Patient presents the following: Acute intervention needed for co-occurring med or psych disorder (Patient's blood pressure: 150/108; HR= 110 SEAN 0.018) Admission Criteria Met: Admission criteria met Admission ROS [facility] Chief Complaint: Patient here with alcohol withdrawal. Allergies/Adverse Reactions: Allergies Allergy/AdvReac Type Severity Reaction Status Date / Time No Known Drug Allergies Allergy Verified 07/28/18 19:04 lisinopril AdvReac Severe Swelling Verified 07/28/18 19:04 of the Face History of Present Illness: Patient states here for alcohol detox. States I'm drinking less and going to meetings. Alcohol use since age 17. Sates drinks daily. Heroin use since age 29. Currently on [facility]. States methadone dose is 90 mg and last received medication today. Patient states received a prescription for Tylenol # 3 on 07/25/18 for nerve pain. This information not in PDMP profile. Patient denies use of any benzos. Denies hx blackouts, overdose, or seizures. Hx: DM, Diabetic ulcer on (L) 2nd toe, HTN, Patient is on clonidine for B/P which does not control it. Patient Encouraged to speak w/ PCP regarding obtaining a different antihypertensive that will control the patient's blood pressure for at least 12-24 hours. Risk of uncontrolled blood pressure reviewed w/ patient. Current EKG shows 'Non-specific T-wave abnormality and prolonged QT' and reflect changes from prior EKG readings. Mental health: Denies problems. Denies thoughts of harming self or others. Patient Name: Polo Barth Date: 1955 Address: [address] [place] [address] Sex: Male Rx Written Rx Dispensed Drug Quantity Days Supply Prescriber Name 01/20/2018 01/20/2018 oxycodone-acetaminophen 5-325 mg tab 12 2 [facility] Patient Name: Polo Barth Date: 1955 Address: [address] [place] [address] Sex: Male Rx Written Rx Dispensed Drug Quantity Days Supply Prescriber Name 10/28/2017 10/29/2017 oxycodone-acetaminophen 5-325 mg tab 3 3 Mojgan Nelson MD) Patient Name: Polo Barth Date: 1955 Address: [address] [place] [address] Sex: Male Rx Written Rx Dispensed Drug Quantity Days Supply Prescriber Name 10/22/2017 10/22/2017 oxycodone-acetaminophen 5-325 mg tab 9 3 Octavio Taveras 10/22/2017 10/22/2017 zolpidem tartrate 5 mg tablet 3 3 Octavio Taveras 10/09/2017 10/09/2017 zolpidem tartrate 5 mg tablet 10 10 Octavio Taveras 10/09/2017 10/09/2017 oxycodone-acetaminophen 5-325 mg tab 35 11 Octavio Taveras 09/24/2017 09/25/2017 zolpidem tartrate 5 mg tablet 14 14 Cyril Dill 09/25/2017 09/25/2017 oxycodone-acetaminophen 5-325 mg tab 42 14 Octavio Taveras Exam Limitations: No Limitations - Ebola screening Have you traveled outside of the country in the last 21 days: No Have you had contact with anyone from an Ebola affected area: No Have you been sick,other than usual withdrawal symptoms: No Do you have a fever: No - Review of Systems Constitutional: Diaphoresis EENT: reports: Blurred Vision (States needs glasses), Dental Problems (Missing teeth. Chews and swallows okay) Respiratory: reports: SOB with Exertion (When climbing 1 flight of stairs) Cardiac: reports: No Symptoms Reported (Hx HTN) GI: reports: Indigestion (Hx acid reflux- states takes Zantac) : reports: Frequency (5-6x/night urination - denies burn, pain, blood w/ urination. Encouraged to f/u w/ PCP post discharge for prostate evaluation.) Musculoskeletal: reports: Joint Pain (Pain and stiffness in fingers of (L) hand. States pain is sharp and a '6'. Pain increases when holding/carrying things. Relieved w/ pain meds.) Integumentary: reports: Other (Ulcer 2nd toe (L) foot x 1 year. Antibiotics completed. Last saw foot doctor 1 month ago.) Neuro: reports: Tingling (Bottom of both feet) Endocrine: reports: Increased Thirst Hematology: reports: No Symptoms Reported Psychiatric: reports: Judgement Intact, Mood/Affect Appropiate, Orientated x3 Patient History - Patient Medical History Hx Anemia: No Hx Asthma: No Hx Chronic Obstructive Pulmonary Disease (COPD): Yes (Not on medicatiom) Hx Cancer: No Hx Cardiac Disorders: No Hx Congestive Heart Failure: No Hx Hypertension: Yes Hx Hypercholesterolemia: Yes (Not on medication) Hx Pacemaker: No HX Cerebrovascular Accident: No Hx Seizures: No Hx Dementia: No Hx Diabetes: Yes (on insulin) Hx Gastrointestinal Disorders: No Hx Liver Disease: No Hx Genitourinary Disorders: No Hx Sexually Transmitted Disorders: No Hx Renal Disease (ESRD): No Hx Thyroid Disease: No Hx Human Immunodeficiency Virus (HIV): No (Negative 2017) Hx Hepatitis C: No Hx Depression: Yes (Not on medication) Hx Suicide Attempt: No Hx Bipolar Disorder: No Hx Schizophrenia: No - Patient Surgical History Past Surgical History: Yes Hx Neurologic Surgery: No Hx Cataract Extraction: No Hx Cardiac Surgery: No Hx Lung Surgery: No Hx Breast Surgery: No Hx Breast Biopsy: No Hx Abdominal Surgery: Yes (left inguinal hernia repair in 1979) Hx Appendectomy: No Hx Cholecystectomy: No Hx Genitourinary Surgery: No Hx Section: No Hx Orthopedic Surgery: No Other Surgical History: R FOOT CORN REMOVAL ON GREAT TOE 05/2016 Anesthesia Reaction: No - PPD History Previous Implant?: Yes Documented Results: Negative w/proof Implanted On Prior [facility] Admission?: Yes Date: 07/26/17 Results: 0 MM PPD to be Administered?: Yes - Smoking Cessation Smoking history: Never smoked Have you smoked in the past 12 months: No Aproximately how many cigarettes per day: 0 Cigars Per Day: 0 Hx Chewing Tobacco Use: No - Substance & Tx. History Hx Alcohol Use: Yes Hx Substance Use: Yes Substance Use Type: Alcohol, Heroin Hx Substance Use Treatment: Yes (detox, currently on MMTP) - Substances Abused Alcohol Route: Oral Frequency: Daily Amount used: LIQUOR- 2 PINTS, BEER- 1 SIX PACK Age of first use: 16 Date of Last Use: 07/28/18 Family Disease History - Family Disease History Family Disease History: Diabetes: Mother (htn), Heart Disease: Mother, Respiratory: Sister (PN ), Other: Grandparent (htn), Father (htn ) Admission Physical Exam S - Vital Signs Vital Signs: Vital Signs - 24 hr 07/28/18 16:50 Temperature 98 F Pulse Rate 110 H Respiratory 18 Rate Blood Pressure 150/108 H - Physical General Appearance: Yes: Nourished, Mild Distress, Tremorous, Sweating HEENTM: Yes: EOMI, Hearing grossly Normal, Normocephalic, Normal Voice, RAJWINDER Respiratory: Yes: Chest Non-Tender, Lungs Clear, Normal Breath Sounds, Labored Respiration Neck: Yes: No masses,lesions,Nodules, Supple Breast: Yes: Breast Exam Deferred Cardiology: Yes: Regular Rhythm, Tachycardia, Other (Current EKG shows 'Non- specific T-wave abnormality and prolonged QT') Abdominal: Yes: Non Tender, Soft, Protuberent (Increased abdominal adiposity) Genitourinary: Yes: Nocturia Back: Yes: Normal Inspection Musculoskeletal: Yes: full range of Motion Extremities: Yes: Normal Capillary Refill, Tremors (Gross tremors w/ arms extended) Neurological: Yes: rice farmer II-XII NML intact, Fully Oriented, Alert, Motor Strength 5/5, Normal Response Integumentary: Yes: Warm, Diaphoresis, Other (Dry, thickened, flaky skin from toes to approx 4 " above ankle. Feet w/ 1+ edema. Pedal pulses present. Increased moisture and flaky skin between toes. (L) 2nd toe ulceration healed.) - Diagnostic (1) Alcohol dependence with uncomplicated withdrawal Current Visit: Yes Status: Acute (2) Elevated blood pressure reading with diagnosis of hypertension Current Visit: Yes Status: Acute Comment: B/P: 150/108; HR: 110 (3) COPD (chronic obstructive pulmonary disease) Current Visit: Yes Status: Chronic Qualifiers: COPD type: chronic bronchitis Chronic bronchitis type: simple Qualified Code(s): J41.0 - Simple chronic bronchitis (4) GERD (gastroesophageal reflux disease) Current Visit: Yes Status: Chronic Qualifiers: Esophagitis presence: without esophagitis Qualified Code(s): K21.9 - Gastro -esophageal reflux disease without esophagitis (5) Hypertension Current Visit: Yes Status: Chronic Qualifiers: Hypertension type: essential hypertension Qualified Code(s): I10 - Essential (primary) hypertension (6) Opioid dependence on agonist therapy Current Visit: Yes Status: Chronic (7) Type II diabetes mellitus Current Visit: Yes Status: Chronic Qualifiers: 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: with dedicated 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 truck driver use Diabetes mellitus complication status: with neurologic complications Diabetes mellitus complication detail: with unspecified neuropathy Qualified Code(s): E11.40 - Type 2 diabetes mellitus with diabetic neuropathy, unspecified; Z79.4 - long-term (current) use of insulin (8) Abnormal EKG Current Visit: Yes Status: Chronic (9) Tinea pedis Current Visit: Yes Status: Chronic Qualifiers: Laterality: bilateral Qualified Code(s): B35.3 - Tinea pedis (10) Pedal edema Current Visit: Yes Status: Chronic Cleared for Admission BHS - Detox or Rehab [facility] Level of Care: Medically Managed Detox Regimen/Protocol: Librium [facility] Breath Alcohol Content Breath Alcohol Content: 0.018 Urine Drug Screen - Results Drug Screen Negative: No Urine Drug Screen Results: OPI-Opiates, BZO-Benzodiazepines, MTD-Methadone
[2018-07-28] MEDS ORDERED: LOPERAMIDE HCL 2 MG CAPSULE PO PRN (18:27)
[2018-07-28] MEDS ORDERED: P-EPHED 60MG/TRIPROLIDI 2.5MG TABLET PO PRN (18:27)
[2018-07-28] MEDS ORDERED: MAGNESIUM CITRATE 300 ML BOTTLE PO PRN (18:27)
[2018-07-28] MEDS ORDERED: IBUPROFEN 400 MG TABLET (FP) PO PRN (18:27)
[2018-07-28] MEDS ORDERED: MAG HYDROX/AL HYDROX/SIMETH 30 ML UNIT-DOSE CUP PO PRN (18:27)
[2018-07-28] MEDS ORDERED: MENTHOL/PHENOL 1 EACH UD MM PRN (18:27)
[2018-07-28] MEDS ORDERED: ACETAMINOPHEN 325 MG TABLET (FP) PO PRN (18:27)
[2018-07-28] MEDS ORDERED: MAGNESIUM HYDROX 2400MG/30ML ORAL SUSPENSION 30 ML CUP PO PRN (18:27)
[2018-07-28] MEDS ORDERED: chlordiazePOXIDE HCL 25 MG CAPSULE PO PRN (18:27)
[2018-07-28] MEDS ORDERED: guaiFENesin 200 MG/10 ML 10 ML UNIT-DOSE CUPS PO PRN (18:35)
[2018-07-28] MEDS ORDERED: chlordiazePOXIDE HCL 25 MG CAPSULE PO ONE (19:15)
[2018-07-28] MEDS ORDERED: ALBUTEROL SO4 8 GM HFA INHALER IH PRN (19:44)
[2018-07-28] MEDS ORDERED: MELATONIN 5 MG TABLETS PO PRN (22:00)
[2018-07-28] MEDS: INSULIN SLIDING SCALE (NOVOLOG) 1 VIAL SQ SCH (22:08)
[2018-07-28] MEDS ORDERED: INSULIN (NOVOLOG) ASPART 100 UNITS/ML 10ML VIAL ONE (22:10)
[2018-07-28] MEDS: THIAMINE HCL 100 MG TABLET (FP) PO SCH (22:12)
[2018-07-28] MEDS: ATORVASTATIN CA 40 MG TABLET (FP) PO SCH (22:12)
[2018-07-28] MEDS: GABAPENTIN 100 MG CAPSULE (FP) PO SCH (22:12)
[2018-07-28] MEDS: chlordiazePOXIDE HCL 25 MG CAPSULE PO SCH (22:12)
[2018-07-29] MEDS: diphenhydrAMINE HCL 25 MG CAPSULE (FP) PO PRN ×2 (00:23→22:36)
[2018-07-29 02:23] LABS: URINE APPEARANCE CLEAR; URINE BILIRUBIN NEGATIVE (<2.0 mg/dL); URINE COLOR YELLOW; URINE GLUCOSE (UA) 3+ (NEGATIVE); URINE KETONE NEGATIVE (NEGATIVE); URINE LEUK ESTERASE TRACE (NEGATIVE); URINE NITRITE NEGATIVE (NEGATIVE); URINE PROTEIN 1+ (NEGATIVE)
[2018-07-29 02:33] LABS: EPI CELLS RARE /HPF (FEW); URINE HYALINE CAST 3 /lpf
[2018-07-29] MEDS: chlordiazePOXIDE HCL 25 MG CAPSULE PO SCH ×4 (06:18→22:32)
[2018-07-29] MEDS: GABAPENTIN 100 MG CAPSULE (FP) PO SCH ×3 (06:19→22:32)
[2018-07-29] MEDS: metFORMIN HCL 500 MG TABLET (FP) PO SCH (06:19)
[2018-07-29] MEDS ORDERED: INSULIN (NOVOLOG) ASPART 100 UNITS/ML 10ML VIAL SQ SCH (07:00)
[2018-07-29] MEDS ORDERED: INSULIN SQ SCH (07:00)
[2018-07-29] MEDS ORDERED: INSULIN (NOVOLOG) ASPART 100 UNITS/ML 10ML VIAL ONE ×4 (07:47→22:31)
[2018-07-29] MEDS: INSULIN SLIDING SCALE (NOVOLOG) 1 VIAL SQ SCH ×4 (07:48→22:28)
[2018-07-29] MEDS ORDERED: METHADONE HCL 10 MG TABLET PO ONE (08:40)
[2018-07-29] MEDS ORDERED: ALBUTEROL SO4 8 GM HFA INHALER IH PRN (08:47)
[2018-07-29] MEDS ORDERED: METHADONE 80 MG, METHADONE 10 MG PO ONE (09:00)
[2018-07-29] MEDS ORDERED: METHADONE HCL 10 MG TABLET ONE (09:40)
[2018-07-29] MEDS ORDERED: METHADONE HCL 40 MG DISPERSABLE TABLET ONE (09:40)
--- NOTE | 2018-07-29 09:42 | PN ---
BHS CIWA - CIWA Score Nausea/Vomitin Muscle Tremors: 2 Anxiety: 2 Agitation: 2 Paroxysmal Sweats: 1-Minimal Palms Moist Orientation: 0-Oriented Tacttile Disturbances: 1-Very Mild Itch/Numbness Auditory Disturbances: 1-Very Mild Visual Disturbances: 0-None Headache: 2-Mild CIWA-Ar Total Score: 13 BHS Progress Note (SOAP) Subjective: alert,irritable,anxious,interrupted sleep,tremor,pain in the body and back Objective: 07/29/18 09:41 Vital Signs Temperature 98.2 F 07/29/18 09:16 Pulse Rate 101 H 07/29/18 09:16 Respiratory Rate 18 07/29/18 09:16 Blood Pressure 161/94 07/29/18 09:16 O2 Sat by Pulse Oximetry (%) Laboratory Last Values POC Glucometer 245 UNITS (80-120) 07/29/18 06:17 Urine Color Yellow 07/28/18 22:50 Urine Appearance Clear 07/28/18 22:50 Urine pH 5.0 (5.0-8.0) 07/28/18 22:50 Ur Specific [place] 1.009 (1.010-1.035) L 07/28/18 22:50 Urine Protein 1+ (NEGATIVE) H 07/28/18 22:50 Urine Glucose (UA) 3+ (NEGATIVE) H 07/28/18 22:50 Urine Ketones Negative (NEGATIVE) 07/28/18 22:50 Urine Blood Negative (NEGATIVE) 07/28/18 22:50 Urine Nitrite Negative (NEGATIVE) 07/28/18 22:50 Urine Bilirubin Negative (<2.0 mg/dL) 07/28/18 22:50 Urine Urobilinogen 2.0 mg/dL (0.2-1.0) 07/28/18 22:50 Ur Leukocyte Esterase Trace (NEGATIVE) 07/28/18 22:50 Urine WBC (Auto) <1 /hpf (3-5) 07/28/18 22:50 Urine RBC (Auto) <1 /hpf (0-3) 07/28/18 22:50 Ur Epithelial Cells Rare /HPF (FEW) 07/28/18 22:50 Hyaline Casts 3 /lpf 07/28/18 22:50 Assessment: 07/29/18 09:41 withdrawal symptom Plan: continue detox,bp monitoring
[2018-07-29 10:21] LABS: HEMATOCRIT 33.7 % (35.4-49); MCH 28.6 pg (25.7-33.7); MCHC 32.8 g/dl (32.0-35.9); MEAN CELL VOLUME 87.2 fl (80-96); MEAN PLT VOLUME 8.8 fl (7.5-11.1); PLATELET COUNT 121 K/MM3 (134-434); RBC 3.86 M/mm3 (4.00-5.60); RDW 15.6 % (11.9-15.9); WHITE BLOOD COUNT 4.1 K/mm3 (4.0-10.0)
[2018-07-29] MEDS: ASPIRIN COATED 81 MG TABLET.EC PO SCH (10:31)
[2018-07-29] MEDS: PRENATAL VITAMINS W/ FOLIC ACID TABLET (FP) PO SCH (10:31)
[2018-07-29] MEDS: cloNIDine HCL 0.1 MG TABLET PO SCH ×2 (10:31→22:32)
[2018-07-29] MEDS: RANITIDINE HCL 150 MG TABLET (FP) PO SCH (10:31)
[2018-07-29 10:53] LABS: BLOOD UREA NITROGEN 10 mg/dL (7-18); CREATININE 0.9 mg/dL (0.55-1.3); GLUCOSE,RANDOM 289 mg/dL (74-106)
[2018-07-29 10:54] LABS: ALBUMIN 2.8 g/dl (3.4-5.0); ALK PHOS 96 U/L (45-117); ANION GAP 8 MMOL/L (8-16); BILIRUBIN,TOTAL 0.7 mg/dL (0.2-1); CALCIUM 8.3 mg/dL (8.5-10.1); CHLORIDE 97 mmol/L (98-107); CO2 28 mmol/L (21-32); POTASSIUM 3.3 mmol/L (3.5-5.1); SGOT/AST 24 U/L (15-37); SGPT/ALT 12 U/L (13-61); SODIUM 133 mmol/L (136-145); TOT PROT 8.2 g/dl (6.4-8.2)
--- NOTE | 2018-07-29 15:10 | EKG ---
Test Reason : Blood Pressure : / mmHG Vent. Rate : 088 BPM Atrial Rate : 088 BPM P-R Int : 130 ms QRS Dur : 086 ms QT Int : 402 ms P-R-T Axes : 060 040 158 degrees QTc Int : 486 ms NORMAL SINUS RHYTHM NONSPECIFIC T WAVE ABNORMALITY PROLONGED QT ABNORMAL ECG Confirmed by Sung Reid MD ([id number]) on 07/29/2018 3:10:28 PM Referred By: Confirmed By:Sung Reid MD
[2018-07-29] MEDS: ATORVASTATIN CA 40 MG TABLET (FP) PO SCH (22:32)
[2018-07-29] MEDS: THIAMINE HCL 100 MG TABLET (FP) PO SCH (22:32)
[2018-07-30] MEDS: chlordiazePOXIDE HCL 25 MG CAPSULE PO SCH ×3 (05:35→17:27)
[2018-07-30] MEDS: GABAPENTIN 100 MG CAPSULE (FP) PO SCH ×3 (05:36→21:59)
[2018-07-30] MEDS ORDERED: METHADONE HCL 40 MG DISPERSABLE TABLET ONE (05:36)
[2018-07-30] MEDS ORDERED: METHADONE HCL 10 MG TABLET ONE (05:37)
[2018-07-30] MEDS: METHADONE 80 MG, METHADONE 10 MG PO SCH (05:38)
[2018-07-30] MEDS ORDERED: METHADONE HCL 40 MG DISPERSABLE TABLET PO SCH (06:00)
[2018-07-30] MEDS: metFORMIN HCL 500 MG TABLET (FP) PO SCH (06:05)
[2018-07-30] MEDS: INSULIN SLIDING SCALE (NOVOLOG) 1 VIAL SQ SCH ×4 (06:06→21:59)
--- NOTE | 2018-07-30 10:01 | CONSULT ---
[facility] Psychiatric Consult - Data Date of interview: 07/30/18 Admission source: Patient approached MD in a lobby for anxiety insomnia Identifying data: This is a 63 years old male, single father of one, living with roommate, unemployed, on PA support, with multiple medical issues, withy no psychiatric hospitalization histopry, with long history of Alcohol, Nicotine dependence, history of Cocaine and Opioids dependence as well, currently on MMTP 90mg .day. Patient reports withdrawal sympotoms and seeking for detox. Substance Abuse History: - Smoking Cessation. Smoking history: Never smoked. Have you smoked in the past 12 months: No. Aproximately how many cigarettes per day: 0. Cigars Per Day: 0. Hx Chewing Tobacco Use: No. - Substance & Tx. History. Hx Alcohol Use: Yes. Hx Substance Use: Yes. Substance Use Type: Alcohol, Heroin. Hx Substance Use Treatment: Yes (detox, currently on MMTP). - Substances Abused. Alcohol. Route: Oral. Frequency: Daily. Amount used : LIQUOR- 2 PINTS, BEER- 1 SIX PACK. Age of first use: 16. Date of Last Use: 07/28/18 Medical History: HTN, COPD, GERD, Pedak Edema, Weight loss history, Asthma, Hyperlipidemia, DM-II, MMTP 90mg /day Psychiatric History: Patient reports history of depression and anxiety, reports no psychiatric hospitalization history, nop suicidal, judi,icidal history, reports insom,glenn, reports taking prior to admission: Trazodone 100mg po qhs Physical/Sexual Abuse/Trauma History: Denies Additional Comment: Trazodone 100mg po qhs Mental Status Exam - Mental Status Exam Alert and Oriented to: Person Cognitive Function: Fair Patient Appearance: Unkempt Mood: Anxious Affect: Mood Congruent Patient Behavior: Talkative, Agitated Speech Pattern: Excessive Voice Loudness: Mildly Loud Thought Process: Goal Oriented Thought Disorder: Being Controlled Hallucinations: Denies Suicidal Ideation: Denies Homicidal Ideation: Denies Insight/Judgement: Fair Appetite: Weight loss Muscle strength/Tone: Normal Gait/Station: Normal Additional Comments: Trazodone 100mg po qhs Psychiatric Findings - Problem List ([place] 1, 2,3) (1) Alcohol dependence with uncomplicated withdrawal Current Visit: Yes Status: Acute (2) Abnormal EKG Current Visit: Yes Status: Chronic (3) COPD (chronic obstructive pulmonary disease) Current Visit: Yes Status: Chronic Qualifiers: COPD type: chronic bronchitis Chronic bronchitis type: simple Qualified Code(s): J41.0 - Simple chronic bronchitis (4) GERD (gastroesophageal reflux disease) Current Visit: Yes Status: Chronic Qualifiers: Esophagitis presence: without esophagitis Qualified Code(s): K21.9 - Gastro -esophageal reflux disease without esophagitis (5) Opioid dependence on agonist therapy Current Visit: Yes Status: Chronic (6) Pedal edema Current Visit: Yes Status: Chronic (7) Drug-induced mood disorder Current Visit: No Status: Acute (8) H/O left inguinal hernia repair Current Visit: No Status: Acute (9) Insomnia secondary to depression with anxiety Current Visit: No Status: Acute (10) Substance induced mood disorder Current Visit: No Status: Acute (11) Weight loss Current Visit: No Status: Acute (12) Alcohol abuse with alcohol-induced mood disorder Current Visit: No Status: Chronic (13) Alcohol dependence, episodic drinking behavior Current Visit: No Status: Chronic (14) Asthma Current Visit: No Status: Chronic Qualifiers: Asthma severity: unspecified severity Asthma persistence: unspecified Asthma complication type: with status asthmaticus Qualified Code(s): J45.902 - Unspecified asthma with status asthmaticus (15) Cocaine dependence Current Visit: No Status: Chronic Qualifiers: Substance use status: uncomplicated Qualified Code(s): F14.20 - Cocaine dependence, uncomplicated (16) Essential hypertension Current Visit: No Status: Chronic (17) Hyperlipidemia Current Visit: No Status: Chronic (18) Methadone maintenance therapy patient Current Visit: No Status: Chronic Comment: 90 MG LAST DOSE 06/07/16 VERIFICAITON PENDING (19) Substance-induced sleep disorder Current Visit: No Status: Chronic (20) Type 2 diabetes mellitus with hyperglycemia Current Visit: No Status: Chronic - Initial Treatment Plan Initial Treatment Plan: Trazodone 100mg po qhs
[2018-07-30] MEDS: RANITIDINE HCL 150 MG TABLET (FP) PO SCH (10:27)
[2018-07-30] MEDS: ASPIRIN COATED 81 MG TABLET.EC PO SCH (10:27)
[2018-07-30] MEDS: cloNIDine HCL 0.1 MG TABLET PO SCH ×2 (10:28→21:59)
[2018-07-30] MEDS: PRENATAL VITAMINS W/ FOLIC ACID TABLET (FP) PO SCH (10:28)
[2018-07-30] MEDS ORDERED: INSULIN (NOVOLOG) ASPART 100 UNITS/ML 10ML VIAL ONE ×3 (11:32→21:57)
[2018-07-30] MEDS ORDERED: TRIMETHOBENZAMIDE HCL 300 MG CAPSULE PO PRN (13:48)
--- NOTE | 2018-07-30 17:03 | PN ---
S CIWA - CIWA Score Nausea/Vomitin Muscle Tremors: None Anxiety: 2 Agitation: 1-Slight > Activity Paroxysmal Sweats: 3 Orientation: 2-Disoriented Date<2 days Tacttile Disturbances: 1-Very Mild Itch/Numbness Auditory Disturbances: 0-None Visual Disturbances: 2-Mild Sensitivity Headache: 0-None Present CIWA-Ar Total Score: 14 BHS Progress Note (SOAP) Subjective: Nausea, Stomach Cramping, Sweating. Objective: PATIENT A & O X 2 (UNCERTAIN ABOUT CURRENT DAY / DATE). PATIENT OBSERVED AMBULATING ON UNIT. IN NO ACUTE DISTRESS. 07/30/18 17:03 Vital Signs Temperature 98.1 F 07/30/18 12:49 Pulse Rate 67 07/30/18 12:49 Respiratory Rate 18 07/30/18 12:49 Blood Pressure 148/83 07/30/18 12:49 O2 Sat by Pulse Oximetry (%) Laboratory Tests 07/28/18 07/28/18 07/28/18 19:13 22:07 22:50 WBC RBC Hgb Hct MCV MCH MCHC RDW Plt Count MPV Sodium Potassium Chloride Carbon Dioxide Anion Gap BUN Creatinine Creat Clearance w eGFR POC Glucometer 239 244 Random Glucose Calcium Total Bilirubin AST ALT Alkaline Phosphatase Total Protein Albumin Urine Color Yellow Urine Appearance Clear Urine pH 5.0 Ur Specific [place] 1.009 L Urine Protein 1+ H Urine Glucose (UA) 3+ H Urine Ketones Negative Urine Blood Negative Urine Nitrite Negative Urine Bilirubin Negative Urine Urobilinogen 2.0 Ur Leukocyte Esterase Trace Urine WBC (Auto) <1 Urine RBC (Auto) <1 Ur Epithelial Cells Rare Hyaline Casts 3 07/29/18 07/29/18 07/29/18 06:17 07:00 07:00 WBC 4.1 RBC 3.86 L Hgb 11.0 L Hct 33.7 L MCV 87.2 MCH 28.6 MCHC 32.8 RDW 15.6 Plt Count 121 L D MPV 8.8 Sodium 133 L Potassium 3.3 L Chloride 97 L Carbon Dioxide 28 Anion Gap 8 BUN 10 Creatinine 0.9 Creat Clearance w eGFR > 60 POC Glucometer 245 Random Glucose 289 H Calcium 8.3 L Total Bilirubin 0.7 AST 24 ALT 12 L Alkaline Phosphatase 96 Total Protein 8.2 Albumin 2.8 L Urine Color Urine Appearance Urine pH Ur Specific [place] Urine Protein Urine Glucose (UA) Urine Ketones Urine Blood Urine Nitrite Urine Bilirubin Urine Urobilinogen Ur Leukocyte Esterase Urine WBC (Auto) Urine RBC (Auto) Ur Epithelial Cells Hyaline Casts 07/29/18 07/29/18 07/29/18 13:44 16:36 22:26 WBC RBC Hgb Hct MCV MCH MCHC RDW Plt Count MPV Sodium Potassium Chloride Carbon Dioxide Anion Gap BUN Creatinine Creat Clearance w eGFR POC Glucometer 354 226 314 Random Glucose Calcium Total Bilirubin AST ALT Alkaline Phosphatase Total Protein Albumin Urine Color Urine Appearance Urine pH Ur Specific [place] Urine Protein Urine Glucose (UA) Urine Ketones Urine Blood Urine Nitrite Urine Bilirubin Urine Urobilinogen Ur Leukocyte Esterase Urine WBC (Auto) Urine RBC (Auto) Ur Epithelial Cells Hyaline Casts 07/30/18 07/30/18 07/30/18 05:34 11:21 16:55 WBC RBC Hgb Hct MCV MCH MCHC RDW Plt Count MPV Sodium Potassium Chloride Carbon Dioxide Anion Gap BUN Creatinine Creat Clearance w eGFR POC Glucometer 179 321 310 Random Glucose Calcium Total Bilirubin AST ALT Alkaline Phosphatase Total Protein Albumin Urine Color Urine Appearance Urine pH Ur Specific [place] Urine Protein Urine Glucose (UA) Urine Ketones Urine Blood Urine Nitrite Urine Bilirubin Urine Urobilinogen Ur Leukocyte Esterase Urine WBC (Auto) Urine RBC (Auto) Ur Epithelial Cells Hyaline Casts LABS NOTED. Assessment: 07/30/18 17:04 WITHDRAWAL SYMPTOMS. ANEMIA. HYPOKALEMIA. THROMBOCYTOPENIA. 07/30/18 17:04 Plan: CONTINUE DETOX. K-DUR, 20 MEQ PO BID. PATIENT CURRENTLY RECEIVING DAILY MVI CONTAINING B VITAMINS AND IRON WHILE ADMITTED FOR DETOX.
[2018-07-30] MEDS: POTASSIUM CHLORIDE TABS 20 MEQ TABLET.ER (FP) PO SCH (20:20)
[2018-07-30] MEDS: THIAMINE HCL 100 MG TABLET (FP) PO SCH (21:58)
[2018-07-30] MEDS: traZODone HCL 100 MG TABLET (FP) PO SCH (21:59)
[2018-07-30] MEDS: ATORVASTATIN CA 40 MG TABLET (FP) PO SCH (21:59)
[2018-07-30] MEDS: chlordiazePOXIDE 5 MG CAPSULE PO SCH (22:00)
[2018-07-30] MEDS: diphenhydrAMINE HCL 25 MG CAPSULE (FP) PO PRN (22:05)
[2018-07-31] MEDS ORDERED: METHADONE HCL 40 MG DISPERSABLE TABLET ONE (05:10)
[2018-07-31] MEDS ORDERED: METHADONE HCL 10 MG TABLET ONE (05:11)
[2018-07-31] MEDS: METHADONE 80 MG, METHADONE 10 MG PO SCH (05:48)
[2018-07-31] MEDS: chlordiazePOXIDE 5 MG CAPSULE PO SCH ×3 (05:49→17:46)
[2018-07-31] MEDS: GABAPENTIN 100 MG CAPSULE (FP) PO SCH ×4 (05:49→22:07)
[2018-07-31] MEDS: metFORMIN HCL 500 MG TABLET (FP) PO SCH (06:23)
[2018-07-31] MEDS ORDERED: INSULIN (NOVOLOG) ASPART 100 UNITS/ML 10ML VIAL ONE ×3 (08:01→21:53)
[2018-07-31] MEDS: INSULIN SLIDING SCALE (NOVOLOG) 1 VIAL SQ SCH ×4 (08:26→22:07)
[2018-07-31] MEDS ORDERED: AMMONIUM LACTATE 12% LOTION 225 GM BOTTLE TP PRN (09:49)
[2018-07-31] MEDS: RANITIDINE HCL 150 MG TABLET (FP) PO SCH (10:38)
[2018-07-31] MEDS: ASPIRIN COATED 81 MG TABLET.EC PO SCH (10:38)
[2018-07-31] MEDS: PRENATAL VITAMINS W/ FOLIC ACID TABLET (FP) PO SCH (10:38)
[2018-07-31] MEDS: POTASSIUM CHLORIDE TABS 20 MEQ TABLET.ER (FP) PO SCH ×2 (10:39→20:56)
[2018-07-31] MEDS: cloNIDine HCL 0.1 MG TABLET PO SCH ×2 (10:39→22:06)
--- NOTE | 2018-07-31 15:04 | PN ---
BHS Progress Note (SOAP) Subjective: Fatigue, Sweating. Objective: PATIENT A & O X 3, OBSERVED AMBULATING ON UNIT. IN NO ACUTE DISTRESS. 07/31/18 15:02 Vital Signs Temperature 97.2 F L 07/31/18 13:53 Pulse Rate 72 07/31/18 13:53 Respiratory Rate 18 07/31/18 13:53 Blood Pressure 107/76 07/31/18 13:53 O2 Sat by Pulse Oximetry (%) Laboratory Tests 07/28/18 07/28/18 07/28/18 19:13 22:07 22:50 WBC RBC Hgb Hct MCV MCH MCHC RDW Plt Count MPV Sodium Potassium Chloride Carbon Dioxide Anion Gap BUN Creatinine Creat Clearance w eGFR POC Glucometer 239 244 Random Glucose Calcium Total Bilirubin AST ALT Alkaline Phosphatase Total Protein Albumin Urine Color Yellow Urine Appearance Clear Urine pH 5.0 Ur Specific [place] 1.009 L Urine Protein 1+ H Urine Glucose (UA) 3+ H Urine Ketones Negative Urine Blood Negative Urine Nitrite Negative Urine Bilirubin Negative Urine Urobilinogen 2.0 Ur Leukocyte Esterase Trace Urine WBC (Auto) <1 Urine RBC (Auto) <1 Ur Epithelial Cells Rare Hyaline Casts 3 07/29/18 07/29/18 07/29/18 06:17 07:00 07:00 WBC 4.1 RBC 3.86 L Hgb 11.0 L Hct 33.7 L MCV 87.2 MCH 28.6 MCHC 32.8 RDW 15.6 Plt Count 121 L D MPV 8.8 Sodium 133 L Potassium 3.3 L Chloride 97 L Carbon Dioxide 28 Anion Gap 8 BUN 10 Creatinine 0.9 Creat Clearance w eGFR > 60 POC Glucometer 245 Random Glucose 289 H Calcium 8.3 L Total Bilirubin 0.7 AST 24 ALT 12 L Alkaline Phosphatase 96 Total Protein 8.2 Albumin 2.8 L Urine Color Urine Appearance Urine pH Ur Specific [place] Urine Protein Urine Glucose (UA) Urine Ketones Urine Blood Urine Nitrite Urine Bilirubin Urine Urobilinogen Ur Leukocyte Esterase Urine WBC (Auto) Urine RBC (Auto) Ur Epithelial Cells Hyaline Casts 07/29/18 07/29/18 07/29/18 13:44 16:36 22:26 WBC RBC Hgb Hct MCV MCH MCHC RDW Plt Count MPV Sodium Potassium Chloride Carbon Dioxide Anion Gap BUN Creatinine Creat Clearance w eGFR POC Glucometer 354 226 314 Random Glucose Calcium Total Bilirubin AST ALT Alkaline Phosphatase Total Protein Albumin Urine Color Urine Appearance Urine pH Ur Specific [place] Urine Protein Urine Glucose (UA) Urine Ketones Urine Blood Urine Nitrite Urine Bilirubin Urine Urobilinogen Ur Leukocyte Esterase Urine WBC (Auto) Urine RBC (Auto) Ur Epithelial Cells Hyaline Casts 07/30/18 07/30/18 07/30/18 05:34 11:21 16:55 WBC RBC Hgb Hct MCV MCH MCHC RDW Plt Count MPV Sodium Potassium Chloride Carbon Dioxide Anion Gap BUN Creatinine Creat Clearance w eGFR POC Glucometer 179 321 310 Random Glucose Calcium Total Bilirubin AST ALT Alkaline Phosphatase Total Protein Albumin Urine Color Urine Appearance Urine pH Ur Specific [place] Urine Protein Urine Glucose (UA) Urine Ketones Urine Blood Urine Nitrite Urine Bilirubin Urine Urobilinogen Ur Leukocyte Esterase Urine WBC (Auto) Urine RBC (Auto) Ur Epithelial Cells Hyaline Casts 07/30/18 07/31/18 07/31/18 21:53 05:46 11:52 WBC RBC Hgb Hct MCV MCH MCHC RDW Plt Count MPV Sodium Potassium Chloride Carbon Dioxide Anion Gap BUN Creatinine Creat Clearance w eGFR POC Glucometer 310 281 279 Random Glucose Calcium Total Bilirubin AST ALT Alkaline Phosphatase Total Protein Albumin Urine Color Urine Appearance Urine pH Ur Specific [place] Urine Protein Urine Glucose (UA) Urine Ketones Urine Blood Urine Nitrite Urine Bilirubin Urine Urobilinogen Ur Leukocyte Esterase Urine WBC (Auto) Urine RBC (Auto) Ur Epithelial Cells Hyaline Casts LABS NOTED. Assessment: 07/31/18 15:02 WITHDRAWAL SYMPTOMS. HYPOKALEMIA. ANEMIA. THROMBOCYTOPENIA. Plan: CONTINUE DETOX. INCREASE DAILY PO FLUID INTAKE. CONTINUE K-DUR. PATIENT SCHEDULED FOR D/C TOMORROW.
[2018-07-31] MEDS: ATORVASTATIN CA 40 MG TABLET (FP) PO SCH (22:06)
[2018-07-31] MEDS: chlordiazePOXIDE HCL 10 MG CAPSULE PO SCH (22:07)
[2018-07-31] MEDS: traZODone HCL 100 MG TABLET (FP) PO SCH (22:07)
[2018-07-31] MEDS: THIAMINE HCL 100 MG TABLET (FP) PO SCH (22:08)
[2018-08-01] MEDS ORDERED: METHADONE HCL 10 MG TABLET ONE (05:00)
[2018-08-01] MEDS ORDERED: METHADONE HCL 40 MG DISPERSABLE TABLET ONE (05:00)
[2018-08-01] MEDS: chlordiazePOXIDE HCL 10 MG CAPSULE PO SCH (05:47)
[2018-08-01] MEDS: METHADONE 80 MG, METHADONE 10 MG PO SCH (05:47)
[2018-08-01] MEDS: GABAPENTIN 100 MG CAPSULE (FP) PO SCH (05:47)
[2018-08-01] MEDS: metFORMIN HCL 500 MG TABLET (FP) PO SCH (06:41)
[2018-08-01] MEDS ORDERED: INSULIN (NOVOLOG) ASPART 100 UNITS/ML 10ML VIAL ONE (06:42)
[2018-08-01] MEDS: INSULIN SLIDING SCALE (NOVOLOG) 1 VIAL SQ SCH (07:55)
[2018-08-01 09:10] VITALS: BP 158/95; PULSE 61; TEMP 97.8
--- NOTE | 2018-08-01 09:52 | DS ---
[facility] Detox Discharge Summary Admission Date: 07/28/18 Discharge Date: 08/01/18 - History Present History: Alcohol Dependence, Cannabis Dependence, MMTP - Physical Exam Results Vital Signs: Vital Signs Temperature 97.8 F 08/01/18 09:10 Pulse Rate 61 08/01/18 09:10 Respiratory Rate 08/01/18 09:10 Blood Pressure 158/95 08/01/18 09:10 O2 Sat by Pulse Oximetry (%) - Treatment Hospital Course: Detox Protocol Followed, Detoxed Safely, Responded well, Discharged Condition Good, Rehab Referral Accepted - Medication Discharge Medications: Ambulatory Orders Insulin (Novolog) [Novolog Flexpen -] 10 units SQ TID 01/09/12 Gabapentin 100 mg PO TID 10/15/16 traZODone HCL [Desyrel -] 50 mg PO HS #30 tablet 07/24/17 Albuterol Sulfate Inhaler - [Ventolin HFA Inhaler -] 2 inh PO PRN PRN #1 inhaler 04/17/18 Atorvastatin Calcium 40 mg PO HS #30 tablet 04/17/18 Budesonide/Formeterol Fumarate [SYMBICORT 160/4.5mcg -] 2 inh PO BID #1 inhaler 04/17/18 Clonidine HCl 0.3 mg PO BID 06/09/18 Aspirin Coated [Ecotrin -] 81 mg PO DAILY #30 tablet.ec 06/13/18 Insulin Glargine,Hum.rec.anlog [Lantus Solostar PEN -] 20 units SQ HS #1 vial metFORMIN HCL [Glucophage -] 500 mg PO ACBK #30 tablet 06/13/18 traZODone HCL [Desyrel -] 100 mg PO HS #30 tablet 07/30/18 - Diagnosis (1) Alcohol dependence with uncomplicated withdrawal Current Visit: Yes Status: Chronic (2) Anemia Current Visit: Yes Status: Acute (3) Elevated blood pressure reading with diagnosis of hypertension Current Visit: Yes Status: Chronic (4) Hypokalemia Current Visit: Yes Status: Acute (5) Thrombocytopenia Current Visit: Yes Status: Acute (6) Abnormal EKG Current Visit: Yes Status: Chronic (7) COPD (chronic obstructive pulmonary disease) Current Visit: Yes Status: Chronic Qualifiers: COPD type: chronic bronchitis Chronic bronchitis type: simple Qualified Code(s): J41.0 - Simple chronic bronchitis (8) GERD (gastroesophageal reflux disease) Current Visit: Yes Status: Chronic Qualifiers: Esophagitis presence: without esophagitis Qualified Code(s): K21.9 - Gastro -esophageal reflux disease without esophagitis (9) Hypertension Current Visit: Yes Status: Chronic Qualifiers: Hypertension type: essential hypertension Qualified Code(s): I10 - Essential (primary) hypertension (10) Opioid dependence on agonist therapy Current Visit: Yes Status: Chronic (11) Pedal edema Current Visit: Yes Status: Chronic (12) Tinea pedis Current Visit: Yes Status: Chronic Qualifiers: Laterality: bilateral Qualified Code(s): B35.3 - Tinea pedis (13) Type II diabetes mellitus Current Visit: Yes Status: Chronic Qualifiers: Diabetes mellitus fci insulin use: with dedicated intermodal truck driver use Diabetes mellitus complication status: with neurologic complications Diabetes mellitus complication detail: with unspecified neuropathy Qualified Code(s): E11.40 - Type 2 diabetes mellitus with diabetic neuropathy, unspecified; 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 (14) Drug-induced mood disorder Current Visit: No Status: Acute (15) H/O left inguinal hernia repair Current Visit: No Status: Acute (16) Insomnia secondary to depression with anxiety Current Visit: No Status: Acute (17) Substance induced mood disorder Current Visit: No Status: Acute (18) Weight loss Current Visit: No Status: Acute (19) Alcohol dependence, episodic drinking behavior Current Visit: No Status: Chronic (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 Current Visit: No Status: Chronic (21) Anxiety Current Visit: No Status: Chronic (22) Asthma Current Visit: Yes Status: Chronic Qualifiers: Asthma severity: mild Asthma persistence: unspecified Asthma complication type: with status asthmaticus Qualified Code(s): J45.902 - Unspecified asthma with status asthmaticus (23) Cocaine dependence Current Visit: Yes Status: Chronic Qualifiers: Substance use status: uncomplicated Qualified Code(s): F14.20 - Cocaine dependence, uncomplicated (24) Depression Current Visit: No Status: Chronic Qualifiers: Depression Type: dysthymia Qualified Code(s): F34.1 - Dysthymic disorder (25) Essential hypertension Current Visit: Yes Status: Chronic (26) Hyperlipidemia Current Visit: Yes Status: Chronic Qualifiers: Hyperlipidemia type: pure hypercholesterolemia Qualified Code(s): E78.00 - Pure hypercholesterolemia, unspecified; E78.0 - Pure hypercholesterolemia (27) IDDM (insulin dependent diabetes mellitus) Current Visit: Yes Status: Chronic (28) Insomnia Current Visit: No Status: Chronic Qualifiers: Insomnia type: primary Qualified Code(s): F51.01 - Primary insomnia (29) Methadone maintenance therapy patient Current Visit: Yes Status: Chronic (30) Substance-induced sleep disorder Current Visit: No Status: Chronic (31) Type 2 diabetes mellitus with hyperglycemia Current Visit: Yes Status: Chronic Qualifiers: 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: without dedicated intermodal truck driver use Qualified Code(s): E11.65 - Type 2 diabetes mellitus with hyperglycemia - AMA Did Patient Leave Against Medical Advice: No (going home)
== END 2018-08-01 09:39 | disposition home or self-care (01) | DRG 773 ==
LOC: YASAS 14:38 → Y6N 19:05
PROVIDERS: ADMIT Surgery; ATTEND Surgery
PROC: HZ2ZZZZ Detoxification Services for Substance Abuse Treatment (ICD-10-PCS; principal; 2018-07-28)
DX: F10.230 Alcohol dependence with withdrawal, uncomplicated (principal); F10.280 Alcohol dependence with alcohol-induced anxiety disorder; F11.20 Opioid dependence, uncomplicated; F14.20 Cocaine dependence, uncomplicated; F19.24 Other psychoactive substance dependence with psychoactive substance-induced mood disorder; F19.282 Other psychoactive substance dependence with psychoactive substance-induced sleep disorder; F51.05 Insomnia due to other mental disorder; F51.01 Primary insomnia; F41.9 Anxiety disorder, unspecified; F34.1 Dysthymic disorder; I10 Essential (primary) hypertension; E87.6 Hypokalemia; D69.0 Allergic purpura; R94.31 Abnormal electrocardiogram [ECG] [EKG]; J41.0 Simple chronic bronchitis; K21.9 Gastro-esophageal reflux disease without esophagitis; R60.9 Edema, unspecified; E11.40 Type 2 diabetes mellitus with diabetic neuropathy, unspecified; E11.65 Type 2 diabetes mellitus with hyperglycemia; E78.5 Hyperlipidemia, unspecified; Z79.4 Long term (current) use of insulin
CPT/HCPCS: 36415; 80053; 81003; 81015; 82962; 85027; 93005; 93010; J0735

== ENCOUNTER 2020-02-12 12:35 | Inpatient (IN) | payer OTHER ==
--- NOTE | 2020-02-12 13:08 | BHS.RME ---
Substance Use & Tx History - Substance Use History Alcohol Substance amount: 1 pint nafisa + six pack beers Frequency of use: Daily Substance route: Oral Date of Last Use: 02/12/20 Physical/Psych/Mental Status - Behavior General Behavior: Increased activity (restlessness, agitation) Eye Contact: Normal - Cooperativeness Cooperativeness: Cooperative - Thinking Thought Processes: Tight, Logical, Goal Directed Thought content: Future oriented - Physical Health Problems Is patient presently having any pain?: No Does patient presently have any injuries (include location): No Does patient currently have a fever: No Is patient : No CIWA Nausea/Vomitin-Mild Nausea/No Vomiting Muscle Tremors: 3 Anxiety: 3 Agitation: 3 Paroxysmal Sweats: 4-Forehead w/Sweat Beads Orientation: 0-Oriented Tacttile Disturbances: 0-None Auditory Disturbances: 0-None Visual Disturbances: 0-None Headache: 1-Very Mild CIWA-Ar Total Score: 15
--- NOTE | 2020-02-12 14:19 | HP ---
<Gallito Alston - Last Filed: 02/12/20 15:25> CIWA Score Nausea/Vomitin-Mild Nausea/No Vomiting Muscle Tremors: 3 Anxiety: 3 Agitation: 3 Paroxysmal Sweats: 4-Forehead w/Sweat Beads Orientation: 0-Oriented Tacttile Disturbances: 0-None Auditory Disturbances: 0-None Visual Disturbances: 0-None Headache: 1-Very Mild CIWA-Ar Total Score: 15 - Admission Criteria OASAS Guidelines: Admission for Medically Managed Detox: Requires at least one of the followin. CIWA greater than 12 2. Seizures within the past 24 hours 3. Delirium tremens within the past 24 hours 4. Hallucinations within the past 24 hours 5. Acute intervention needed for co occurring medical disorder 6. Acute intervention needed for co occurring psychiatric disorder 7. Severe withdrawal that cannot be handled at a lower level of care (continued vomiting, continued diarrhea, abnormal vital signs) requiring intravenous medication and/or fluids 8. Admitting History and Physical - Admission Chief Complaint: Patient is a 64 year old male with history of hypertension, diabetes mellitus (insulin dependent), arthritis, coronary artery disease, COPD, alcohol use disorder, nicotine dependence, presents for detox. History of Present Illness: Patient is a 64 year old male with history of hypertension, diabetes mellitus (insulin dependent), arthritis, coronary artery disease, COPD, alcohol use disorder, nicotine dependence, presents for detox. PMH: hypertension, diabetes mellitus, arthritis, coronary artery disease, COPD, PSH: left inguinal hernia 1984 Social: lives with a friend in [place] Psych: denies Legal: denies - Substance Use History Alcohol Substance amount: 1 pint nafisa + six pack beers Frequency of use: Daily Substance route: Oral Date of Last Use: 02/12/20. 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 Denies seizure, or blackout. History Source: Patient Limitations to Obtaining History: No Limitations - Smoking History Smoking history: Never smoked Have you smoked in the past 12 months: No Aproximately how many cigarettes per day: 0 - Alcohol/Substance Use Hx Alcohol Use: Yes Admission ROS [facility] Chief Complaint: Patient is a 64 year old male with history of hypertension, diabetes mellitus (insulin dependent), arthritis, coronary artery disease, COPD, alcohol use disorder, nicotine dependence, presents for detox. Allergies/Adverse Reactions: Allergies Allergy/AdvReac Type Severity Reaction Status Date / Time lisinopril Allergy Severe Swelling Verified 02/12/20 15:24 of the Face Exam Limitations: No Limitations - Ebola screening Have you traveled outside of the country in the last 21 days: No Have you been sick,other than usual withdrawal symptoms: No Do you have a fever: No - Review of Systems Constitutional: No Symptoms Reported EENT: denies: Blurred Vision, Hearing Loss Respiratory: denies: Cough, Shortness of Breath Cardiac: denies: Chest Pain, Palpitations GI: denies: Nausea, Vomiting, Abdominal cramping : denies: Burning, Dysuria Musculoskeletal: denies: Back Pain, Joint Pain, Muscle Pain, Muscle Weakness Integumentary: reports: Other (chronic discoloration bilateral lower extremities) Neuro: reports: Numbness, Weakness Psychiatric: reports: other (denies suicidal or homicidal ideation). denies: Anxious, Depressed Patient History - Patient Medical History Hx Anemia: No Hx Asthma: No Hx Chronic Obstructive Pulmonary Disease (COPD): Yes (Not on medicatiom) Hx Cancer: No Hx Cardiac Disorders: No Hx Congestive Heart Failure: No Hx Hypertension: Yes Hx Hypercholesterolemia: Yes (Not on medication) Hx Pacemaker: No HX Cerebrovascular Accident: No Hx Seizures: No Hx Dementia: No Hx Diabetes: Yes (on insulin) Hx Gastrointestinal Disorders: No Hx Liver Disease: No Hx Genitourinary Disorders: No Hx Sexually Transmitted Disorders: No Hx Renal Disease (ESRD): No Hx Thyroid Disease: No Hx Human Immunodeficiency Virus (HIV): No (Negative 2017) Hx Hepatitis C: No Hx Depression: Yes (Not on medication) Hx Suicide Attempt: No Hx Bipolar Disorder: No Hx Schizophrenia: No - Patient Surgical History Past Surgical History: Yes Hx Neurologic Surgery: No Hx Cataract Extraction: No Hx Cardiac Surgery: No Hx Lung Surgery: No Hx Breast Surgery: No Hx Breast Biopsy: No Hx Abdominal Surgery: Yes (left inguinal hernia repair in 1979) Hx Appendectomy: No Hx Cholecystectomy: No Hx Genitourinary Surgery: No Hx Section: No Hx Orthopedic Surgery: No Other Surgical History: R FOOT CORN REMOVAL ON GREAT TOE 05/2016 Anesthesia Reaction: No - PPD History Previous Implant?: Yes Date: 07/30/18 Results: 0 MM PPD to be Administered?: No - Reproductive History Patient is a Female of Child Bearing Age (11 -55 yrs old): No Patient : No - Smoking Cessation Smoking history: Never smoked Have you smoked in the past 12 months: No Aproximately how many cigarettes per day: 0 Cigars Per Day: 0 Hx Chewing Tobacco Use: No - Substance & Tx. History Hx Alcohol Use: Yes Substance Use Type: Alcohol - Substances abused Alcohol Substance route: Oral Frequency: Daily Amount used: 6 beers, and 1 pint nafisa daily Age of first use: 18 Date of last use: 02/12/20 Admission Physical Exam [facility] - Physical General Appearance: Yes: Mild Distress, Intoxicated HEENTM: Yes: Hearing grossly Normal, RAJWINDER Respiratory: Yes: Lungs Clear, Normal Breath Sounds, No Respiratory Distress, No Accessory Muscle Use Neck: Yes: Supple Breast: Yes: Breast Exam Deferred Cardiology: Yes: Regular Rhythm, Regular Rate, S1, S2 Abdominal: Yes: Normal Bowel Sounds, Non Tender, Flat, Soft Musculoskeletal: Yes: Within Normal Limits, full range of Motion Extremities: Yes: Within Normal Limits, Normal Range of Motion Neurological: Yes: Alert, Motor Strength 5/5, Normal Response Integumentary: Yes: Other (1+ edema with chronic venous stasis changes bilateral lower extremities) - Diagnostic (1) Alcohol dependence with uncomplicated withdrawal Current Visit: Yes Status: Acute (2) Asthma Current Visit: No Status: Chronic Qualifiers: Asthma severity: mild Asthma persistence: unspecified Asthma complication type: with status asthmaticus Qualified Code(s): J45.902 - Unspecified asthma with status asthmaticus (3) COPD (chronic obstructive pulmonary disease) Current Visit: No Status: Chronic Qualifiers: COPD type: chronic bronchitis Chronic bronchitis type: simple Qualified Code(s): J41.0 - Simple chronic bronchitis (4) Essential hypertension Current Visit: No Status: Chronic (5) IDDM (insulin dependent diabetes mellitus) Current Visit: No Status: Chronic (6) Methadone maintenance therapy patient Current Visit: No Status: Chronic Comment: 90 MG LAST DOSE 06/07/16 VERIFICAITON PENDING Cleared for Admission [facility] - Detox or Rehab [facility] Level of Care: Medically Managed Detox Regimen/Protocol: Librium Claeared for Rehab Admission: No Screened but not Admitted - Documentation of Visit Screened but not Admitted: No Breathalyzer - Breathalyzer Breathalyzer: 0.067 Inpatient Rehab Admission - Rehab Decision to Admit Inpatient rehab admission?: No <Anil,Marquise - Last Filed: 02/17/20 08:39> CIWA Score - Admission Criteria OASAS Guidelines: Admission for Medically Managed Detox: Requires at least one of the followin. CIWA greater than 12 2. Seizures within the past 24 hours 3. Delirium tremens within the past 24 hours 4. Hallucinations within the past 24 hours 5. Acute intervention needed for co occurring medical disorder 6. Acute intervention needed for co occurring psychiatric disorder 7. Severe withdrawal that cannot be handled at a lower level of care (continued vomiting, continued diarrhea, abnormal vital signs) requiring intravenous medication and/or fluids 8. Admitting History and Physical - Admission Chief Complaint: See vitals from nursing chart Admission Physical Exam [facility] - Vital Signs Vital Signs: Vital Signs - 24 hr 02/16/20 02/16/20 02/16/20 12:32 16:38 20:32 Temperature 98.1 F 97.3 F L 97.3 F L Pulse Rate 60 58 L 69 Respiratory 18 18 20 Rate Blood Pressure 113/67 124/73 140/85 O2 Sat by Pulse 96 100 Oximetry (%) 02/17/20 05:13 Temperature 97.1 F L Pulse Rate 67 Respiratory 20 Rate Blood Pressure 145/83 O2 Sat by Pulse 98 Oximetry (%)
[2020-02-12] MEDS ORDERED: MAG HYDROX/AL HYDROX/SIMETH 30 ML UNIT-DOSE CUP PO PRN (14:21)
[2020-02-12] MEDS ORDERED: ONDANSETRON *ODT* 4 MG TABLET SL PRN (14:21)
[2020-02-12] MEDS ORDERED: IBUPROFEN 400 MG TABLET (FP) PO PRN (14:21)
[2020-02-12] MEDS ORDERED: MENTHOL/PHENOL 1 EACH UD MM PRN (14:21)
[2020-02-12] MEDS ORDERED: ACETAMINOPHEN 325 MG TABLET (FP) PO PRN (14:21)
[2020-02-12] MEDS ORDERED: BISMUTH SUBSALICYLATE 524 MG/30 ML UD PO PRN (14:21)
[2020-02-12] MEDS ORDERED: chlordiazePOXIDE HCL 25 MG CAPSULE PO PRN (14:21)
[2020-02-12] MEDS ORDERED: METHOCARBAMOL 500 MG TABLET PO PRN (14:21)
[2020-02-12] MEDS ORDERED: MAGNESIUM CITRATE 300 ML BOTTLE PO PRN (14:21)
[2020-02-12] MEDS ORDERED: MAGNESIUM HYDROX 2400MG/30ML ORAL SUSPENSION 30 ML CUP PO PRN (14:21)
[2020-02-12] MEDS ORDERED: ALBUTEROL SO4 HFA INHALER IH PRN (14:26)
[2020-02-12 14:51] VITALS: BMI 26.6
[2020-02-12] MEDS ORDERED: FUROSEMIDE 40 MG TABLET (FP) PO ONE (16:00)
[2020-02-12] MEDS: hydrOXYzine PAMOATE 25 MG CAPSULE (FP) PO SCH ×2 (17:12→22:42)
[2020-02-12] MEDS: chlordiazePOXIDE HCL 25 MG CAPSULE PO SCH ×2 (17:12→22:42)
[2020-02-12 17:55] LABS: HEMATOCRIT 33.1 % (35.4-49); HEMOGLOBIN 10.5 GM/dL (11.7-16.9); MCH 29.7 pg (25.7-33.7); MCHC 31.7 g/dl (32.0-35.9); MEAN CELL VOLUME 93.4 fl (80-96); MEAN PLT VOLUME 8.2 fl (7.5-11.1); PLATELET COUNT 184 K/MM3 (134-434); RBC 3.54 M/mm3 (4.00-5.60); RDW 14.8 % (11.9-15.9)
[2020-02-12 18:05] LABS: ALBUMIN 2.9 g/dl (3.4-5.0); BILIRUBIN,TOTAL 0.4 mg/dL (0.2-1); CALCIUM 8.9 mg/dL (8.5-10.1); CREATININE 0.9 mg/dL (0.55-1.3); POTASSIUM 4.3 mmol/L (3.5-5.1); TOT PROT 8.6 g/dl (6.4-8.2)
[2020-02-12] MEDS: INSULIN SLIDING SCALE (NOVOLOG) 1 VIAL SQ SCH ×2 (18:08→22:45)
[2020-02-12] MEDS ORDERED: GABAPENTIN 100 MG CAPSULE PO SCH (22:00)
[2020-02-12] MEDS: cloNIDine HCL 0.1 MG TABLET PO SCH (22:42)
[2020-02-12] MEDS: ATORVASTATIN CA 40 MG TABLET (FP) PO SCH (22:42)
[2020-02-12] MEDS: THIAMINE HCL 100 MG TABLET (FP) PO SCH (22:42)
[2020-02-12] MEDS: GABAPENTIN 400 MG CAPSULE PO SCH (22:42)
[2020-02-12] MEDS: MELATONIN 5 MG TABLETS PO SCH (22:46)
[2020-02-12] MEDS: BUDESONIDE/FORMETEROL FUMARATE 160/4.5 mcg INHALER IH SCH (22:46)
[2020-02-13] MEDS: chlordiazePOXIDE HCL 25 MG CAPSULE PO SCH ×4 (05:27→22:10)
[2020-02-13] MEDS: hydrOXYzine PAMOATE 25 MG CAPSULE (FP) PO SCH ×5 (05:28→22:11)
[2020-02-13] MEDS ORDERED: INSULIN SLIDING SCALE (NOVOLOG) 1 VIAL SQ ONE (07:15)
[2020-02-13] MEDS: INSULIN SLIDING SCALE (NOVOLOG) 1 VIAL SQ SCH ×4 (07:31→22:11)
--- NOTE | 2020-02-13 09:43 | PN ---
[facility] CIWA - CIWA Score Nausea/Vomitin-No Nausea/No Vomiting Muscle Tremors: 2 Anxiety: 3 Agitation: 0-Normal Activity Paroxysmal Sweats: 3 Orientation: 0-Oriented Tacttile Disturbances: 0-None Auditory Disturbances: 0-None Visual Disturbances: 0-None Headache: 2-Mild CIWA-Ar Total Score: 10 S Progress Note (SOAP) Subjective: c/o anxiety, shakes, headache, and sweats. Objective: Vital Signs 02/13/20 02/13/20 02/13/20 06:35 08:40 08:41 Temperature 97.1 F L 98.2 F Pulse Rate 60 65 Respiratory 18 19 Rate Blood Pressure 149/87 150/84 O2 Sat by Pulse 96 98 98 Oximetry (%) Laboratory Last Values WBC 3.0 K/mm3 (4.0-10.0) L 02/12/20 14:30 RBC 3.54 M/mm3 (4.00-5.60) L 02/12/20 14:30 Hgb 10.5 GM/dL (11.7-16.9) L 02/12/20 14:30 Hct 33.1 % (35.4-49) L 02/12/20 14:30 MCV 93.4 fl (80-96) 02/12/20 14:30 MCH 29.7 pg (25.7-33.7) 02/12/20 14:30 MCHC 31.7 g/dl (32.0-35.9) L 02/12/20 14:30 RDW 14.8 % (11.9-15.9) 02/12/20 14:30 Plt Count 184 K/MM3 (134-434) D 02/12/20 14:30 MPV 8.2 fl (7.5-11.1) 02/12/20 14:30 Sodium 136 mmol/L (136-145) 02/12/20 14:30 Potassium 4.3 mmol/L (3.5-5.1) 02/12/20 14:30 Chloride 101 mmol/L (98-107) 02/12/20 14:30 Carbon Dioxide 29 mmol/L (21-32) 02/12/20 14:30 Anion Gap 7 MMOL/L (8-16) L 02/12/20 14:30 BUN 5.0 mg/dL (7-18) L 02/12/20 14:30 Creatinine 0.9 mg/dL (0.55-1.3) 02/12/20 14:30 Est GFR (CKD-EPI)AfAm 105.72 02/12/20 14:30 Est GFR (CKD-EPI)NonAf 91.22 02/12/20 14:30 POC Glucometer 213 UNITS (80-120) 02/13/20 05:30 Random Glucose 163 mg/dL (74-106) H 02/12/20 14:30 Calcium 8.9 mg/dL (8.5-10.1) 02/12/20 14:30 Total Bilirubin 0.4 mg/dL (0.2-1) 02/12/20 14:30 AST 74 U/L (15-37) H 02/12/20 14:30 ALT 40 U/L (13-61) 02/12/20 14:30 Alkaline Phosphatase 114 U/L (45-117) 02/12/20 14:30 Total Protein 8.6 g/dl (6.4-8.2) H 02/12/20 14:30 Albumin 2.9 g/dl (3.4-5.0) L 02/12/20 14:30 Syphilis Serology Reactive (NONREACTIVE) A* 02/12/20 14:30 RPR Titer Reactive 1:1 (NONREACTIVE) H D 02/12/20 14:30 Labs noted. Assessment: 02/13/20 09:43 AOX3, in no acute respiratory distress. Full ROM, ambulating in the unit. Withdrawal symptoms. Plan: continue detox.
[2020-02-13] MEDS: cloNIDine HCL 0.1 MG TABLET PO SCH ×2 (11:05→22:11)
[2020-02-13] MEDS: ASPIRIN COATED 81 MG TABLET.EC PO SCH (11:05)
[2020-02-13] MEDS: GABAPENTIN 400 MG CAPSULE PO SCH ×2 (11:05→22:11)
[2020-02-13] MEDS: PRENATAL VITAMINS W/ FOLIC ACID TABLET (FP) PO SCH (11:06)
[2020-02-13] MEDS: BUDESONIDE/FORMETEROL FUMARATE 160/4.5 mcg INHALER IH SCH ×2 (11:06→22:12)
[2020-02-13] MEDS ORDERED: METHADONE HCL 10 MG TABLET PO SCH (13:45)
[2020-02-13] MEDS ORDERED: METHADONE HCL 10 MG TABLET (FOR DETOX USE ONLY) ONE (13:48)
[2020-02-13] MEDS ORDERED: METHADONE HCL 40 MG DISPERSABLE TABLET ONE (13:49)
[2020-02-13] MEDS: METHADONE 80 MG, METHADONE (DETOX) 20 MG PO SCH (13:53)
[2020-02-13] MEDS ORDERED: ATORVASTATIN CA 20 MG TABLET (FP) ONE (21:01)
[2020-02-13] MEDS: ATORVASTATIN CA 40 MG TABLET (FP) PO SCH (22:11)
[2020-02-13] MEDS: THIAMINE HCL 100 MG TABLET (FP) PO SCH (22:11)
[2020-02-13] MEDS: MELATONIN 5 MG TABLETS PO SCH (22:11)
[2020-02-14] MEDS ORDERED: METHADONE HCL 40 MG DISPERSABLE TABLET ONE (04:28)
[2020-02-14] MEDS ORDERED: METHADONE HCL 10 MG TABLET (FOR DETOX USE ONLY) ONE (04:28)
[2020-02-14] MEDS: METHADONE 80 MG, METHADONE (DETOX) 20 MG PO SCH (05:18)
[2020-02-14] MEDS: chlordiazePOXIDE HCL 25 MG CAPSULE PO SCH ×4 (05:22→22:00)
[2020-02-14] MEDS: hydrOXYzine PAMOATE 25 MG CAPSULE (FP) PO SCH (05:23)
[2020-02-14] MEDS: INSULIN SLIDING SCALE (NOVOLOG) 1 VIAL SQ SCH ×4 (07:39→22:02)
[2020-02-14] MEDS ORDERED: hydrOXYzine PAMOATE 25 MG CAPSULE (FP) PO PRN (09:47)
--- NOTE | 2020-02-14 09:52 | PN ---
S CIWA - CIWA Score Nausea/Vomitin-Mild Nausea/No Vomiting Muscle Tremors: 2 Anxiety: 2 Agitation: 3 Paroxysmal Sweats: No Perspiration Orientation: 0-Oriented Tacttile Disturbances: 0-None Auditory Disturbances: 0-None Visual Disturbances: 1-Very Mild Sensitivity Headache: 0-None Present CIWA-Ar Total Score: 9 S Progress Note (SOAP) Subjective: 64 years old male was admitted on 02/12/20 for alcohol withdrawal sx management treating with librium detox regiment requests to be seen by a psychiatrist for depression psychiatric referral received methadone 100 mg po today mr rivera seems sleepy change vistaril to prn plt in lower range mr rivera is taking aspirin discontinue motrin Objective: 02/14/20 09:55 Vital Signs - 24 hr 02/13/20 02/13/20 02/13/20 13:00 16:49 20:25 Temperature 97.1 F L 97.1 F L 97.3 F L Pulse Rate 69 76 72 Respiratory 18 18 18 Rate Blood Pressure 116/72 132/84 140/83 O2 Sat by Pulse 98 99 Oximetry (%) 02/14/20 02/14/20 05:04 09:03 Temperature 97.1 F L 97.1 F L Pulse Rate 71 75 Respiratory 16 18 Rate Blood Pressure 148/85 107/75 O2 Sat by Pulse 98 Oximetry (%) Laboratory Tests 02/12/20 02/12/20 02/12/20 14:30 14:30 14:30 WBC 3.0 L RBC 3.54 L Hgb 10.5 L Hct 33.1 L MCV 93.4 MCH 29.7 MCHC 31.7 L RDW 14.8 Plt Count 184 D MPV 8.2 Sodium 136 Potassium 4.3 Chloride 101 Carbon Dioxide 29 Anion Gap 7 L BUN 5.0 L Creatinine 0.9 Est GFR (CKD-EPI)AfAm 105.72 Est GFR (CKD-EPI)NonAf 91.22 POC Glucometer Random Glucose 163 H Calcium 8.9 Total Bilirubin 0.4 AST 74 H ALT 40 Alkaline Phosphatase 114 Total Protein 8.6 H Albumin 2.9 L Syphilis Serology Reactive A* RPR Titer COVID-19 ([facility]) HIV Ag/Ab Combo Qual 02/12/20 02/12/20 02/12/20 14:30 14:59 15:00 WBC RBC Hgb Hct MCV MCH MCHC RDW Plt Count MPV Sodium Potassium Chloride Carbon Dioxide Anion Gap BUN Creatinine Est GFR (CKD-EPI)AfAm Est GFR (CKD-EPI)NonAf POC Glucometer 154 Random Glucose Calcium Total Bilirubin AST ALT Alkaline Phosphatase Total Protein Albumin Syphilis Serology RPR Titer Reactive 1:1 H D COVID-19 ([place]) Not detected HIV Ag/Ab Combo Qual 02/12/20 02/12/20 02/13/20 16:34 21:33 05:30 WBC RBC Hgb Hct MCV MCH MCHC RDW Plt Count MPV Sodium Potassium Chloride Carbon Dioxide Anion Gap BUN Creatinine Est GFR (CKD-EPI)AfAm Est GFR (CKD-EPI)NonAf POC Glucometer 235 213 213 Random Glucose Calcium Total Bilirubin AST ALT Alkaline Phosphatase Total Protein Albumin Syphilis Serology RPR Titer COVID-19 ([place]) HIV Ag/Ab Combo Qual 02/13/20 02/13/20 02/13/20 05:50 11:11 16:33 WBC RBC Hgb Hct MCV MCH MCHC RDW Plt Count MPV Sodium Potassium Chloride Carbon Dioxide Anion Gap BUN Creatinine Est GFR (CKD-EPI)AfAm Est GFR (CKD-EPI)NonAf POC Glucometer 214 355 Random Glucose Calcium Total Bilirubin AST ALT Alkaline Phosphatase Total Protein Albumin Syphilis Serology RPR Titer COVID-19 ([place]) HIV Ag/Ab Combo Qual Negative 02/13/20 02/14/20 20:46 05:17 WBC RBC Hgb Hct MCV MCH MCHC RDW Plt Count MPV Sodium Potassium Chloride Carbon Dioxide Anion Gap BUN Creatinine Est GFR (CKD-EPI)AfAm Est GFR (CKD-EPI)NonAf POC Glucometer 286 339 Random Glucose Calcium Total Bilirubin AST ALT Alkaline Phosphatase Total Protein Albumin Syphilis Serology RPR Titer COVID-19 ([place]) HIV Ag/Ab Combo Qual 02/14/20 09:56 insulin dependent diabetes II syphilis contacted treated Assessment: 02/14/20 09:58 alcohol withdrawal 02/14/20 09:58 diabetes continue bgm with insulin coverage syphilis contacted Plan: librium regiment syphilis treated by history
[2020-02-14] MEDS: GABAPENTIN 400 MG CAPSULE PO SCH ×2 (10:34→22:01)
[2020-02-14] MEDS: cloNIDine HCL 0.1 MG TABLET PO SCH ×2 (10:34→22:01)
[2020-02-14] MEDS: PRENATAL VITAMINS W/ FOLIC ACID TABLET (FP) PO SCH (10:35)
[2020-02-14] MEDS: BUDESONIDE/FORMETEROL FUMARATE 160/4.5 mcg INHALER IH SCH ×2 (10:35→22:04)
[2020-02-14] MEDS: ASPIRIN COATED 81 MG TABLET.EC PO SCH (10:35)
[2020-02-14] MEDS: ACETAMINOPHEN 325 MG TABLET (FP) PO PRN (15:38)
[2020-02-14] MEDS ORDERED: ATORVASTATIN CA 20 MG TABLET (FP) ONE (20:20)
[2020-02-14] MEDS: MELATONIN 5 MG TABLETS PO SCH (22:01)
[2020-02-14] MEDS: ATORVASTATIN CA 40 MG TABLET (FP) PO SCH (22:01)
[2020-02-14] MEDS: THIAMINE HCL 100 MG TABLET (FP) PO SCH (22:04)
[2020-02-15] MEDS ORDERED: chlordiazePOXIDE HCL 10 MG CAPSULE PO PRN
[2020-02-15] MEDS ORDERED: METHADONE HCL 10 MG TABLET (FOR DETOX USE ONLY) ONE (04:18)
[2020-02-15] MEDS ORDERED: METHADONE HCL 40 MG DISPERSABLE TABLET ONE ×2 (04:18→04:48)
[2020-02-15] MEDS ORDERED: METHADONE HCL 10 MG TABLET ONE (04:48)
[2020-02-15] MEDS: METHADONE 80 MG, METHADONE 20 MG PO SCH (05:27)
[2020-02-15] MEDS: chlordiazePOXIDE HCL 10 MG CAPSULE PO SCH ×4 (05:27→22:21)
[2020-02-15] MEDS: INSULIN SLIDING SCALE (NOVOLOG) 1 VIAL SQ SCH ×4 (07:11→22:23)
[2020-02-15] MEDS: ASPIRIN COATED 81 MG TABLET.EC PO SCH (10:25)
[2020-02-15] MEDS: cloNIDine HCL 0.1 MG TABLET PO SCH ×2 (10:25→22:21)
[2020-02-15] MEDS: GABAPENTIN 400 MG CAPSULE PO SCH ×2 (10:26→22:21)
[2020-02-15] MEDS: PRENATAL VITAMINS W/ FOLIC ACID TABLET (FP) PO SCH (10:26)
--- NOTE | 2020-02-15 11:13 | PN ---
[facility] CIWA - CIWA Score Nausea/Vomitin-Mild Nausea/No Vomiting Muscle Tremors: 2 Anxiety: 2 Agitation: 2 Paroxysmal Sweats: No Perspiration Orientation: 0-Oriented Tacttile Disturbances: 0-None Auditory Disturbances: 0-None Visual Disturbances: 0-None Headache: 1-Very Mild CIWA-Ar Total Score: 8 S Progress Note (SOAP) Subjective: alert,irritable,anxious,interrupted sleep,aching pain in the body and back,ambulation with cane Objective: 02/15/20 11:11 Vital Signs Temperature 97.9 F 02/15/20 08:39 Pulse Rate 78 02/15/20 08:39 Respiratory Rate 18 02/15/20 08:39 Blood Pressure 117/77 02/15/20 08:39 O2 Sat by Pulse Oximetry (%) 98 02/15/20 05:17 02/15/20 11:12 Laboratory Last Values WBC 3.0 K/mm3 (4.0-10.0) L 02/12/20 14:30 RBC 3.54 M/mm3 (4.00-5.60) L 02/12/20 14:30 Hgb 10.5 GM/dL (11.7-16.9) L 02/12/20 14:30 Hct 33.1 % (35.4-49) L 02/12/20 14:30 MCV 93.4 fl (80-96) 02/12/20 14:30 MCH 29.7 pg (25.7-33.7) 02/12/20 14:30 MCHC 31.7 g/dl (32.0-35.9) L 02/12/20 14:30 RDW 14.8 % (11.9-15.9) 02/12/20 14:30 Plt Count 184 K/MM3 (134-434) D 02/12/20 14:30 MPV 8.2 fl (7.5-11.1) 02/12/20 14:30 Sodium 136 mmol/L (136-145) 02/12/20 14:30 Potassium 4.3 mmol/L (3.5-5.1) 02/12/20 14:30 Chloride 101 mmol/L (98-107) 02/12/20 14:30 Carbon Dioxide 29 mmol/L (21-32) 02/12/20 14:30 Anion Gap 7 MMOL/L (8-16) L 02/12/20 14:30 BUN 5.0 mg/dL (7-18) L 02/12/20 14:30 Creatinine 0.9 mg/dL (0.55-1.3) 02/12/20 14:30 Est GFR (CKD-EPI)AfAm 105.72 02/12/20 14:30 Est GFR (CKD-EPI)NonAf 91.22 02/12/20 14:30 POC Glucometer 245 UNITS (80-120) 02/15/20 05:29 Random Glucose 163 mg/dL (74-106) H 02/12/20 14:30 Calcium 8.9 mg/dL (8.5-10.1) 02/12/20 14:30 Total Bilirubin 0.4 mg/dL (0.2-1) 02/12/20 14:30 AST 74 U/L (15-37) H 02/12/20 14:30 ALT 40 U/L (13-61) 02/12/20 14:30 Alkaline Phosphatase 114 U/L (45-117) 02/12/20 14:30 Total Protein 8.6 g/dl (6.4-8.2) H 02/12/20 14:30 Albumin 2.9 g/dl (3.4-5.0) L 02/12/20 14:30 Syphilis Serology Reactive (NONREACTIVE) A* 02/12/20 14:30 RPR Titer Reactive 1:1 (NONREACTIVE) H D 02/12/20 14:30 COVID-19 ([place]) Not detected (Not Detected) 02/12/20 15:00 HIV Ag/Ab Combo Qual Negative (NEGATIVE) 02/13/20 05:50 02/15/20 11:15 history of syphilis treated Assessment: 02/15/20 11:11 withdrawal symptom Plan: continue detox librium regimen,metformin 500 mgs po daily,bgm monitoring,psychiatrist reevaluation patient's requested
[2020-02-15] MEDS: BUDESONIDE/FORMETEROL FUMARATE 160/4.5 mcg INHALER IH SCH ×2 (11:48→22:21)
--- NOTE | 2020-02-15 12:22 | CONSULT ---
[facility] Psychiatric Consult - Data Date of interview: 02/15/20 Admission source: [facility] Identifying data: Revisit to [facility] and admission to [address] [place] [address] for this 64 y/o AA male self-referred for detoxification treatment. BEATRIZ issues : opioid, alcohol. Patient is single, a father of one, domiciled, unemployed and supported on welfare. Substance Abuse History: Discussed with patient. BEATRIZ profile as follows : Smoking history: Never smoked. Have you smoked in the past 12 months: No. Aproximately how many cigarettes per day: 0. Cigars Per Day: 0. Hx Chewing Tobacco Use: No. - Substance & Tx. History. Hx Alcohol Use: Yes. Substance Use Type: Alcohol. - Substances abused. Alcohol. Substance route: Oral. Frequency: Daily. Amount used: 6 beers, and 1 pint nafisa daily. Age of first use: 18. Date of last use: 02/12/20 Medical History: Medical profile is remarkable for hypertension, insulin- dependent diabetes mellitus, arthritis, COPD, GERD, hypercholesterolemia, antecedent of myocardial infarction, left inguinal herniorraphy (1979) and a past history of syphilis (treated). Additional history of foot surgery (corn removal from right great toe) in 2015. Patient ambulates with a cane. Psychiatric History: No reported history of psychiatric hospitalizations. Mr Barth is still on methadone maintenance (100 mg/day) at the [facility] in the [place]. He denies history of suicide attempts. Patient insists on getting seroquel at bedtime to manage his chronic insomnia. Physical/Sexual Abuse/Trauma History: Patient denies history of abuse. Additional Comment: No toxicolgy for review. Mental Status Exam - Mental Status Exam Alert and Oriented to: Time, Place, Person Cognitive Function: Good Patient Appearance: Unkempt, Disheveled Mood: Withdrawn Affect: Mood Congruent, Constricted Patient Behavior: Sedated (moderately sedated; falling asleep during interview), Fatigued Speech Pattern: Delayed, Slurred Voice Loudness: Mildly Soft/Quiet Thought Process: Goal Oriented (as evidenced by patient's ability to follow verbal redirections and execute simple tasks) Thought Disorder: Not Present Hallucinations: Denies Suicidal Ideation: Denies Homicidal Ideation: Denies Insight/Judgement: Poor Sleep: Well (in spite of self report of insomnia) Appetite: Good Gait/Station: Other (moves around with a cane; unsteady gait due to moderate sedation) Psychiatric Findings - Problem List ([place] 1, 2,3) (1) Alcohol dependence with uncomplicated withdrawal Current Visit: Yes Status: Acute (2) Opioid dependence on agonist therapy Current Visit: Yes Status: Chronic (3) Substance induced mood disorder Current Visit: Yes Status: Chronic - Initial Treatment Plan Initial Treatment Plan: Falls precautions. No seroquel will be added to regimen in view of patient's condition (sedation). Detoxification in progress. Observation.
--- NOTE | 2020-02-15 18:28 | EKG ---
Test Reason : Blood Pressure : / mmHG Vent. Rate : 079 BPM Atrial Rate : 079 BPM P-R Int : 166 ms QRS Dur : 098 ms QT Int : 408 ms P-R-T Axes : 061 002 045 degrees QTc Int : 467 ms NORMAL SINUS RHYTHM NORMAL ECG WHEN COMPARED WITH ECG OF 28-JUL-2018 20:49, T WAVE VARIATION Confirmed by DANN RAYMOND MD ([id number]) on 02/15/2020 6:28:25 PM Referred By: Confirmed By:DANN RAYMOND MD
[2020-02-15] MEDS: ATORVASTATIN CA 40 MG TABLET (FP) PO SCH (22:21)
[2020-02-15] MEDS: THIAMINE HCL 100 MG TABLET (FP) PO SCH (22:21)
[2020-02-15] MEDS: MELATONIN 5 MG TABLETS PO SCH (22:21)
[2020-02-16] MEDS ORDERED: METHADONE HCL 10 MG TABLET ONE (05:12)
[2020-02-16] MEDS ORDERED: METHADONE HCL 40 MG DISPERSABLE TABLET ONE (05:13)
[2020-02-16] MEDS: chlordiazePOXIDE HCL 10 MG CAPSULE PO SCH ×2 (07:14→18:35)
[2020-02-16] MEDS: metFORMIN HCL 500 MG TABLET (FP) PO SCH (07:15)
[2020-02-16] MEDS: METHADONE 80 MG, METHADONE 20 MG PO SCH (07:16)
[2020-02-16] MEDS: INSULIN SLIDING SCALE (NOVOLOG) 1 VIAL SQ SCH ×4 (07:20→21:03)
[2020-02-16] MEDS: ASPIRIN COATED 81 MG TABLET.EC PO SCH (09:57)
[2020-02-16] MEDS: cloNIDine HCL 0.1 MG TABLET PO SCH ×2 (09:57→22:21)
[2020-02-16] MEDS: GABAPENTIN 400 MG CAPSULE PO SCH ×2 (09:57→22:21)
[2020-02-16] MEDS: BUDESONIDE/FORMETEROL FUMARATE 160/4.5 mcg INHALER IH SCH ×2 (09:57→22:20)
[2020-02-16] MEDS: PRENATAL VITAMINS W/ FOLIC ACID TABLET (FP) PO SCH (09:57)
[2020-02-16] MEDS ORDERED: INSULIN SLIDING SCALE (NOVOLOG) 1 VIAL SQ ONE (11:40)
--- NOTE | 2020-02-16 14:13 | PN ---
S CIWA - CIWA Score Nausea/Vomitin-Mild Nausea/No Vomiting Muscle Tremors: 2 Anxiety: 1-Mildly Anxious Agitation: 1-Slight > Activity Paroxysmal Sweats: No Perspiration Orientation: 0-Oriented Tacttile Disturbances: 0-None Auditory Disturbances: 0-None Visual Disturbances: 0-None Headache: 1-Very Mild CIWA-Ar Total Score: 6 S Progress Note (SOAP) Subjective: alert,irritable,anxious,interrupted sleep,aching pain Objective: 02/16/20 14:17 Vital Signs Temperature 98.1 F 02/16/20 12:32 Pulse Rate 60 02/16/20 12:32 Respiratory Rate 18 02/16/20 12:32 Blood Pressure 113/67 02/16/20 12:32 O2 Sat by Pulse Oximetry (%) 96 02/16/20 12:32 02/16/20 14:17 Laboratory Last Values WBC 3.0 K/mm3 (4.0-10.0) L 02/12/20 14:30 RBC 3.54 M/mm3 (4.00-5.60) L 02/12/20 14:30 Hgb 10.5 GM/dL (11.7-16.9) L 02/12/20 14:30 Hct 33.1 % (35.4-49) L 02/12/20 14:30 MCV 93.4 fl (80-96) 02/12/20 14:30 MCH 29.7 pg (25.7-33.7) 02/12/20 14:30 MCHC 31.7 g/dl (32.0-35.9) L 02/12/20 14:30 RDW 14.8 % (11.9-15.9) 02/12/20 14:30 Plt Count 184 K/MM3 (134-434) D 02/12/20 14:30 MPV 8.2 fl (7.5-11.1) 02/12/20 14:30 Sodium 136 mmol/L (136-145) 02/12/20 14:30 Potassium 4.3 mmol/L (3.5-5.1) 02/12/20 14:30 Chloride 101 mmol/L (98-107) 02/12/20 14:30 Carbon Dioxide 29 mmol/L (21-32) 02/12/20 14:30 Anion Gap 7 MMOL/L (8-16) L 02/12/20 14:30 BUN 5.0 mg/dL (7-18) L 02/12/20 14:30 Creatinine 0.9 mg/dL (0.55-1.3) 02/12/20 14:30 Est GFR (CKD-EPI)AfAm 105.72 02/12/20 14:30 Est GFR (CKD-EPI)NonAf 91.22 02/12/20 14:30 POC Glucometer 292 UNITS (80-120) 02/16/20 11:31 Random Glucose 163 mg/dL (74-106) H 02/12/20 14:30 Calcium 8.9 mg/dL (8.5-10.1) 02/12/20 14:30 Total Bilirubin 0.4 mg/dL (0.2-1) 02/12/20 14:30 AST 74 U/L (15-37) H 02/12/20 14:30 ALT 40 U/L (13-61) 02/12/20 14:30 Alkaline Phosphatase 114 U/L (45-117) 02/12/20 14:30 Total Protein 8.6 g/dl (6.4-8.2) H 02/12/20 14:30 Albumin 2.9 g/dl (3.4-5.0) L 02/12/20 14:30 Syphilis Serology Reactive (NONREACTIVE) A* 02/12/20 14:30 RPR Titer Reactive 1:1 (NONREACTIVE) H D 02/12/20 14:30 COVID-19 ([place]) Not detected (Not Detected) 02/12/20 15:00 HIV Ag/Ab Combo Qual Negative (NEGATIVE) 02/13/20 05:50 02/16/20 14:17 history of syphilis treated before Assessment: 02/16/20 14:18 withdrawal symptom Plan: continue detox librium regimen,discharge in am
--- NOTE | 2020-02-16 15:36 | PN ---
[facility] Progress Note Note: continuity writer call [phone] to verify medication no record was found
[2020-02-16] MEDS: ACETAMINOPHEN 325 MG TABLET (FP) PO PRN (16:56)
[2020-02-16] MEDS: THIAMINE HCL 100 MG TABLET (FP) PO SCH (22:21)
[2020-02-16] MEDS: MELATONIN 5 MG TABLETS PO SCH (22:21)
[2020-02-16] MEDS: ATORVASTATIN CA 40 MG TABLET (FP) PO SCH (22:21)
[2020-02-17] MEDS: ACETAMINOPHEN 325 MG TABLET (FP) PO PRN (02:13)
[2020-02-17] MEDS ORDERED: METHADONE HCL 10 MG TABLET ONE (04:44)
[2020-02-17] MEDS ORDERED: METHADONE HCL 40 MG DISPERSABLE TABLET ONE (04:45)
[2020-02-17] MEDS ORDERED: chlordiazePOXIDE HCL 10 MG CAPSULE PO ONE (05:00)
[2020-02-17] MEDS: METHADONE 80 MG, METHADONE 20 MG PO SCH (05:25)
[2020-02-17 06:45] VITALS: BP 145/83; PULSE 67; TEMP 97.1
[2020-02-17] MEDS: INSULIN SLIDING SCALE (NOVOLOG) 1 VIAL SQ SCH (07:32)
[2020-02-17] MEDS: metFORMIN HCL 500 MG TABLET (FP) PO SCH (07:34)
--- NOTE | 2020-02-17 09:18 | PN ---
Teaching Attending Note Name of Resident: Gallito Alston ATTENDING PHYSICIAN STATEMENT I saw and evaluated the patient. I reviewed the resident's note and discussed the case with the resident. I agree with the resident's findings and plan as documented. SUBJECTIVE: OBJECTIVE: ASSESSMENT AND PLAN: Agreed with resident's findings and plans for detox.
[2020-02-17] MEDS: ASPIRIN COATED 81 MG TABLET.EC PO SCH (09:29)
[2020-02-17] MEDS: GABAPENTIN 400 MG CAPSULE PO SCH (09:29)
[2020-02-17] MEDS: PRENATAL VITAMINS W/ FOLIC ACID TABLET (FP) PO SCH (09:30)
[2020-02-17] MEDS: BUDESONIDE/FORMETEROL FUMARATE 160/4.5 mcg INHALER IH SCH (09:30)
--- NOTE | 2020-02-17 10:37 | PN ---
[facility] CIWA - CIWA Score Nausea/Vomitin-No Nausea/No Vomiting Muscle Tremors: None Anxiety: 1-Mildly Anxious Agitation: 0-Normal Activity Paroxysmal Sweats: No Perspiration Orientation: 0-Oriented Tacttile Disturbances: 0-None Auditory Disturbances: 0-None Visual Disturbances: 0-None Headache: 0-None Present CIWA-Ar Total Score: 1 S Progress Note (SOAP) Subjective: alert,no complaint Objective: 02/17/20 11:01 Vital Signs Temperature 97.1 F L 02/17/20 05:13 Pulse Rate 67 02/17/20 05:13 Respiratory Rate 20 02/17/20 05:13 Blood Pressure 145/83 02/17/20 05:13 O2 Sat by Pulse Oximetry (%) 98 02/17/20 05:13 Assessment: 02/17/20 11:01 detox completed,no withdrawal symptom Plan: stable for discharge today,follow up with after care program as arrangement
--- NOTE | 2020-02-17 11:04 | DS ---
[facility] Detox Discharge Summary Admission Date: 02/12/20 Discharge Date: 02/17/20 - History Present History: Alcohol Dependence, Cocaine Dependence, MMTP Additional Comments: alert,oriented x 3 ambulation on the unit lung clear on auscultation bilaterally abdomen soft,no pain,no distension stable for discharge detox completed,no withdrawal symptom total time spending on discharge 35 minutes follow up with after care program as arrangement methadone maintenance clinic follow up with medical provider for medical follow up and treatment Pertinent Past History: hypertension type 2 dm arthritis ambulation with cane asthma history of syphilis treated - Physical Exam Results Vital Signs: Vital Signs Temperature 97.1 F L 02/17/20 05:13 Pulse Rate 67 02/17/20 05:13 Respiratory Rate 20 02/17/20 05:13 Blood Pressure 145/83 02/17/20 05:13 O2 Sat by Pulse Oximetry (%) 98 02/17/20 05:13 Pertinent Admission Physical Exam Findings: withdrawal signs and symptom Laboratory Last Values WBC 3.0 K/mm3 (4.0-10.0) L 02/12/20 14:30 RBC 3.54 M/mm3 (4.00-5.60) L 02/12/20 14:30 Hgb 10.5 GM/dL (11.7-16.9) L 02/12/20 14:30 Hct 33.1 % (35.4-49) L 02/12/20 14:30 MCV 93.4 fl (80-96) 02/12/20 14:30 MCH 29.7 pg (25.7-33.7) 02/12/20 14:30 MCHC 31.7 g/dl (32.0-35.9) L 02/12/20 14:30 RDW 14.8 % (11.9-15.9) 02/12/20 14:30 Plt Count 184 K/MM3 (134-434) D 02/12/20 14:30 MPV 8.2 fl (7.5-11.1) 02/12/20 14:30 Sodium 136 mmol/L (136-145) 02/12/20 14:30 Potassium 4.3 mmol/L (3.5-5.1) 02/12/20 14:30 Chloride 101 mmol/L (98-107) 02/12/20 14:30 Carbon Dioxide 29 mmol/L (21-32) 02/12/20 14:30 Anion Gap 7 MMOL/L (8-16) L 02/12/20 14:30 BUN 5.0 mg/dL (7-18) L 02/12/20 14:30 Creatinine 0.9 mg/dL (0.55-1.3) 02/12/20 14:30 Est GFR (CKD-EPI)AfAm 105.72 02/12/20 14:30 Est GFR (CKD-EPI)NonAf 91.22 02/12/20 14:30 POC Glucometer 361 UNITS (80-120) 02/17/20 05:23 Random Glucose 163 mg/dL (74-106) H 02/12/20 14:30 Calcium 8.9 mg/dL (8.5-10.1) 02/12/20 14:30 Total Bilirubin 0.4 mg/dL (0.2-1) 02/12/20 14:30 AST 74 U/L (15-37) H 02/12/20 14:30 ALT 40 U/L (13-61) 02/12/20 14:30 Alkaline Phosphatase 114 U/L (45-117) 02/12/20 14:30 Total Protein 8.6 g/dl (6.4-8.2) H 02/12/20 14:30 Albumin 2.9 g/dl (3.4-5.0) L 02/12/20 14:30 Syphilis Serology Reactive (NONREACTIVE) A* 02/12/20 14:30 RPR Titer Reactive 1:1 (NONREACTIVE) H D 02/12/20 14:30 COVID-19 ([place]) Not detected (Not Detected) 02/12/20 15:00 HIV Ag/Ab Combo Qual Negative (NEGATIVE) 02/13/20 05:50 Vital Signs Temperature 97.1 F L 02/17/20 05:13 Pulse Rate 67 02/17/20 05:13 Respiratory Rate 20 02/17/20 05:13 Blood Pressure 145/83 02/17/20 05:13 O2 Sat by Pulse Oximetry (%) 98 02/17/20 05:13 - Treatment Hospital Course: Detox Protocol Followed, Detoxed Safely, Responded well, Discharged Condition Good - Medication Discharge Medications: Ambulatory Orders Insulin (Novolog) [Novolog Flexpen -] 0 units SQ TID 01/09/12 Albuterol Sulfate Inhaler - [Ventolin HFA Inhaler -] 2 inh PO PRN PRN #1 inhaler 04/17/18 Atorvastatin Calcium 40 mg PO HS #30 tablet 04/17/18 Budesonide/Formeterol Fumarate [SYMBICORT 160/4.5mcg -] 2 inh PO BID #1 inhaler 04/17/18 Clonidine HCl 0.2 mg PO TID 06/09/18 Aspirin Coated [Ecotrin -] 81 mg PO DAILY #30 tablet.ec 06/13/18 Insulin Glargine,Hum.rec.anlog [Lantus Solostar PEN -] 20 units SQ HS #1 vial 06/13/18 metFORMIN HCL [Glucophage -] 500 mg PO ACBK #30 tablet 06/13/18 traZODone HCL [Desyrel -] 100 mg PO HS #30 tablet 07/30/18 Gabapentin [Neurontin -] 400 mg PO BID 02/12/20 Methadone HCl 100 mg PO DAILY 02/12/20 - Diagnosis (1) Alcohol dependence with uncomplicated withdrawal Status: Acute (2) H/O left inguinal hernia repair Status: Acute (3) Syphilis contact, treated Status: Acute (4) Asthma Status: Chronic Qualifiers: Asthma severity: mild Asthma persistence: unspecified Asthma complication type: with status asthmaticus Qualified Code(s): J45.902 - Unspecified asthma with status asthmaticus (5) Hyperlipidemia Status: Chronic Qualifiers: Hyperlipidemia type: pure hypercholesterolemia Qualified Code(s): E78.00 - Pure hypercholesterolemia, unspecified; E78.0 - Pure hypercholesterolemia (6) Hypertension Status: Chronic Qualifiers: Hypertension type: essential hypertension Qualified Code(s): I10 - Essential (primary) hypertension (7) Type II diabetes mellitus Status: Chronic Qualifiers: Diabetes mellitus fpc insulin use: with ocean transportation intermediary use Diabetes mellitus complication status: with neurologic complications Diabetes mellitus complication detail: with unspecified neuropathy Qualified Code(s): E11.40 - Type 2 diabetes mellitus with diabetic neuropathy, unspecified; Z79.4 - ferry terminal agent (current) use of insulin (8) Arthritis Status: Acute (9) Use of cane as ambulatory aid Status: Acute (10) Opioid dependence on agonist therapy Status: Chronic - AMA Did Patient Leave Against Medical Advice: No
== END 2020-02-17 09:38 | disposition home or self-care (01) | DRG 773 ==
LOC: YASAS 12:35 → Y3N 14:45
PROVIDERS: ADMIT Allergy & Immunology; ATTEND Allergy & Immunology
PROC: HZ2ZZZZ Detoxification Services for Substance Abuse Treatment (ICD-10-PCS; principal; 2020-02-12)
DX: F10.230 Alcohol dependence with withdrawal, uncomplicated (principal); F11.20 Opioid dependence, uncomplicated; F14.20 Cocaine dependence, uncomplicated; F19.24 Other psychoactive substance dependence with psychoactive substance-induced mood disorder; I25.10 Atherosclerotic heart disease of native coronary artery without angina pectoris; I10 Essential (primary) hypertension; I25.2 Old myocardial infarction; J44.9 Chronic obstructive pulmonary disease, unspecified; E11.9 Type 2 diabetes mellitus without complications; Z79.4 Long term (current) use of insulin; E78.00 Pure hypercholesterolemia, unspecified; M12.9 Arthropathy, unspecified; Z86.19 Personal history of other infectious and parasitic diseases; Z20.2 Contact with and (suspected) exposure to infections with a predominantly sexual mode of transmission; Z99.89 Dependence on other enabling machines and devices; Z88.8 Allergy status to other drugs, medicaments and biological substances; Z56.0 Unemployment, unspecified
CPT/HCPCS: 36415; 80053; 82962; 85027; 86593; 86780; 87389; 93005; 93010; J0735; U0003

== ENCOUNTER 2020-05-25 13:52 | Inpatient (IN) | payer OTHER ==
[2020-05-25 16:44] VITALS: BMI 30.8
[2020-05-25] MEDS ORDERED: NICOTINE POLACRILEX 2 MG GUM BUC PRN (17:21)
[2020-05-25] MEDS ORDERED: MENTHOL/PHENOL 1 EACH UD MM PRN (17:21)
[2020-05-25] MEDS ORDERED: MAGNESIUM CITRATE 300 ML BOTTLE PO PRN (17:21)
[2020-05-25] MEDS ORDERED: BISMUTH SUBSALICYLATE 524 MG/30 ML UD PO PRN (17:21)
[2020-05-25] MEDS ORDERED: ACETAMINOPHEN 325 MG TABLET (FP) PO PRN ×2 (17:21)
[2020-05-25] MEDS ORDERED: IBUPROFEN 400 MG TABLET (FP) PO PRN (17:21)
[2020-05-25] MEDS ORDERED: chlordiazePOXIDE HCL 25 MG CAPSULE PO ONE (17:21)
[2020-05-25] MEDS ORDERED: chlordiazePOXIDE HCL 25 MG CAPSULE PO PRN (17:21)
[2020-05-25] MEDS ORDERED: METHOCARBAMOL 500 MG TABLET PO PRN (17:21)
[2020-05-25] MEDS ORDERED: MAG HYDROX/AL HYDROX/SIMETH 30 ML UNIT-DOSE CUP PO PRN (17:21)
[2020-05-25] MEDS ORDERED: MAGNESIUM HYDROX 2400MG/30ML ORAL SUSPENSION 30 ML CUP PO PRN (17:21)
[2020-05-25] MEDS ORDERED: ONDANSETRON *ODT* 4 MG TABLET SL PRN (17:21)
[2020-05-25] MEDS ORDERED: ALBUTEROL SO4 HFA INHALER IH PRN (17:35)
[2020-05-25] MEDS: chlordiazePOXIDE HCL 25 MG CAPSULE PO SCH (22:14)
[2020-05-25] MEDS: TOLNAFTATE 1% CREAM 15 GM TUBE TP SCH (22:14)
[2020-05-25] MEDS: ATORVASTATIN CA 40 MG TABLET (FP) PO SCH (22:14)
[2020-05-25] MEDS: cloNIDine HCL 0.1 MG TABLET PO SCH (22:14)
[2020-05-25] MEDS: THIAMINE HCL 100 MG TABLET (FP) PO SCH (22:14)
[2020-05-25] MEDS: MELATONIN 5 MG TABLETS PO SCH (22:15)
[2020-05-25] MEDS: INSULIN (LEVEMIR) 100 UNITS/ML UNITS SQ SCH (22:15)
[2020-05-26] MEDS: cloNIDine HCL 0.1 MG TABLET PO SCH ×3 (06:04→21:50)
[2020-05-26] MEDS: chlordiazePOXIDE HCL 25 MG CAPSULE PO SCH ×4 (06:04→22:16)
[2020-05-26] MEDS: INSULIN SLIDING SCALE (NOVOLOG) 1 VIAL SQ SCH ×3 (06:08→17:05)
[2020-05-26] MEDS: metFORMIN HCL 500 MG TABLET (FP) PO SCH (08:19)
[2020-05-26] MEDS ORDERED: METHADONE 80 MG, METHADONE 20 MG PO ONE (08:41)
[2020-05-26] MEDS ORDERED: METHADONE HCL 10 MG TABLET PO ONE (08:41)
[2020-05-26] MEDS ORDERED: METHADONE HCL 10 MG TABLET ONE (09:25)
[2020-05-26] MEDS ORDERED: METHADONE HCL 40 MG DISPERSABLE TABLET ONE (09:26)
[2020-05-26] MEDS: ASPIRIN COATED 81 MG TABLET.EC PO SCH (09:32)
[2020-05-26] MEDS: PRENATAL VITAMINS W/ FOLIC ACID TABLET (FP) PO SCH (09:32)
[2020-05-26] MEDS: BACITRACIN 0.9 GM PACKET TP SCH (09:32)
[2020-05-26] MEDS: TOLNAFTATE 1% CREAM 15 GM TUBE TP SCH ×2 (10:03→21:51)
[2020-05-26 10:33] LABS: HEMATOCRIT 31.4 % (35.4-49); MCH 27.4 pg (25.7-33.7); MCHC 31.9 g/dl (32.0-35.9); MEAN CELL VOLUME 85.8 fl (80-96); MEAN PLT VOLUME 8.1 fl (7.5-11.1); PLATELET COUNT 241 K/MM3 (134-434); POTASSIUM 4.4 mmol/L (3.5-5.1); RBC 3.66 M/mm3 (4.00-5.60); RDW 18.6 % (11.9-15.9); WHITE BLOOD COUNT 6.6 K/mm3 (4.0-10.0)
[2020-05-26 10:47] LABS: ALBUMIN 2.8 g/dl (3.4-5.0); CALCIUM 8.9 mg/dL (8.5-10.1)
[2020-05-26 10:50] LABS: CREATININE 0.9 mg/dL (0.55-1.3)
[2020-05-26 10:51] LABS: BILIRUBIN,TOTAL 0.9 mg/dL (0.2-1)
[2020-05-26 10:52] LABS: TOT PROT 8.9 g/dl (6.4-8.2)
[2020-05-26] MEDS ORDERED: INSULIN (NOVOLOG) ASPART 100 UNITS/ML 10ML VIAL ONE (17:00)
[2020-05-26] MEDS: FERROUS SO4 325 MG TABLET (FP) PO SCH (17:05)
[2020-05-26] MEDS: THIAMINE HCL 100 MG TABLET (FP) PO SCH (21:50)
[2020-05-26] MEDS: INSULIN (LEVEMIR) 100 UNITS/ML UNITS SQ SCH (21:50)
[2020-05-26] MEDS: BUDESONIDE/FORMETEROL FUMARATE 160/4.5 mcg INHALER IH SCH (21:50)
[2020-05-26] MEDS: ATORVASTATIN CA 40 MG TABLET (FP) PO SCH (21:50)
[2020-05-26] MEDS: MELATONIN 5 MG TABLETS PO SCH (21:50)
[2020-05-26] MEDS: traZODone HCL 100 MG TABLET (FP) PO SCH (21:50)
[2020-05-27] MEDS ORDERED: METHADONE HCL 10 MG TABLET ONE (04:03)
[2020-05-27] MEDS ORDERED: METHADONE HCL 40 MG DISPERSABLE TABLET ONE (04:03)
[2020-05-27] MEDS ORDERED: METHADONE HCL 40 MG DISPERSABLE TABLET PO SCH (06:00)
[2020-05-27] MEDS: chlordiazePOXIDE HCL 25 MG CAPSULE PO SCH ×4 (06:07→22:00)
[2020-05-27] MEDS: METHADONE 80 MG, METHADONE 20 MG PO SCH (06:07)
[2020-05-27] MEDS: cloNIDine HCL 0.1 MG TABLET PO SCH ×3 (06:07→21:56)
[2020-05-27] MEDS: INSULIN SLIDING SCALE (NOVOLOG) 1 VIAL SQ SCH ×3 (06:08→16:44)
[2020-05-27] MEDS: BACITRACIN 0.9 GM PACKET TP SCH (10:45)
[2020-05-27] MEDS: ASPIRIN COATED 81 MG TABLET.EC PO SCH ×2 (11:17→11:43)
[2020-05-27] MEDS: FERROUS SO4 325 MG TABLET (FP) PO SCH ×4 (11:17→16:42)
[2020-05-27] MEDS: metFORMIN HCL 500 MG TABLET (FP) PO SCH (11:18)
[2020-05-27] MEDS: PRENATAL VITAMINS W/ FOLIC ACID TABLET (FP) PO SCH (11:20)
[2020-05-27] MEDS: BUDESONIDE/FORMETEROL FUMARATE 160/4.5 mcg INHALER IH SCH ×2 (11:20→21:57)
[2020-05-27] MEDS: TOLNAFTATE 1% CREAM 15 GM TUBE TP SCH ×2 (11:21→21:57)
[2020-05-27] MEDS ORDERED: INSULIN (NOVOLOG) ASPART 100 UNITS/ML 10ML VIAL ONE (16:38)
[2020-05-27] MEDS: traZODone HCL 100 MG TABLET (FP) PO SCH (21:55)
[2020-05-27] MEDS: INSULIN (LEVEMIR) 100 UNITS/ML UNITS SQ SCH (21:56)
[2020-05-27] MEDS: MELATONIN 5 MG TABLETS PO SCH (21:56)
[2020-05-27] MEDS: ATORVASTATIN CA 40 MG TABLET (FP) PO SCH (21:56)
[2020-05-27] MEDS: THIAMINE HCL 100 MG TABLET (FP) PO SCH (21:58)
[2020-05-28] MEDS ORDERED: chlordiazePOXIDE HCL 10 MG CAPSULE PO PRN
[2020-05-28] MEDS ORDERED: METHADONE HCL 10 MG TABLET ONE (04:12)
[2020-05-28] MEDS ORDERED: METHADONE HCL 40 MG DISPERSABLE TABLET ONE (04:12)
[2020-05-28] MEDS: cloNIDine HCL 0.1 MG TABLET PO SCH ×3 (06:18→22:14)
[2020-05-28] MEDS: chlordiazePOXIDE HCL 10 MG CAPSULE PO SCH ×4 (06:18→22:14)
[2020-05-28] MEDS: METHADONE 80 MG, METHADONE 20 MG PO SCH (06:19)
[2020-05-28] MEDS: metFORMIN HCL 500 MG TABLET (FP) PO SCH (07:02)
[2020-05-28] MEDS: FERROUS SO4 325 MG TABLET (FP) PO SCH ×3 (07:02→17:37)
[2020-05-28] MEDS: INSULIN SLIDING SCALE (NOVOLOG) 1 VIAL SQ SCH ×3 (07:03→16:25)
[2020-05-28 09:32] LABS: BASO % 0.2 % (0-2.0); EOS % 7.9 % (0-4.5); HEMATOCRIT 30.2 % (35.4-49); HEMOGLOBIN 9.6 GM/dL (11.7-16.9); MCH 27.2 pg (25.7-33.7); MCHC 31.8 g/dl (32.0-35.9); MEAN CELL VOLUME 85.5 fl (80-96); MEAN PLT VOLUME 8.3 fl (7.5-11.1); MONO % 5.9 % (3.8-10.2); PLATELET COUNT 206 K/MM3 (134-434); RBC 3.54 M/mm3 (4.00-5.60); RDW 18.6 % (11.9-15.9); WHITE BLOOD COUNT 4.7 K/mm3 (4.0-10.0)
[2020-05-28 09:58] LABS: BILIRUBIN,TOTAL 0.4 mg/dL (0.2-1); CREATININE 0.9 mg/dL (0.55-1.3)
[2020-05-28 09:59] LABS: TOT PROT 8.3 g/dl (6.4-8.2)
[2020-05-28] MEDS: BACITRACIN 0.9 GM PACKET TP SCH (10:05)
[2020-05-28] MEDS: ASPIRIN COATED 81 MG TABLET.EC PO SCH (10:05)
[2020-05-28] MEDS: TOLNAFTATE 1% CREAM 15 GM TUBE TP SCH ×2 (10:06→22:14)
[2020-05-28] MEDS: BUDESONIDE/FORMETEROL FUMARATE 160/4.5 mcg INHALER IH SCH ×2 (10:06→22:14)
[2020-05-28] MEDS: PRENATAL VITAMINS W/ FOLIC ACID TABLET (FP) PO SCH (10:06)
[2020-05-28 10:08] LABS: BLOOD UREA NITROGEN 8.9 mg/dL (7-18); CALCIUM 8.8 mg/dL (8.5-10.1)
[2020-05-28 10:09] LABS: ALBUMIN 2.5 g/dl (3.4-5.0)
[2020-05-28] MEDS ORDERED: cloNIDine HCL 0.1 MG TABLET PO ONE (16:57)
[2020-05-28] MEDS: MELATONIN 5 MG TABLETS PO SCH (22:14)
[2020-05-28] MEDS: THIAMINE HCL 100 MG TABLET (FP) PO SCH (22:14)
[2020-05-28] MEDS: ATORVASTATIN CA 40 MG TABLET (FP) PO SCH (22:14)
[2020-05-28] MEDS: traZODone HCL 100 MG TABLET (FP) PO SCH (22:14)
[2020-05-28] MEDS: INSULIN (LEVEMIR) 100 UNITS/ML UNITS SQ SCH (22:15)
[2020-05-29] MEDS ORDERED: METHADONE HCL 10 MG TABLET ONE (04:22)
[2020-05-29] MEDS ORDERED: METHADONE HCL 40 MG DISPERSABLE TABLET ONE (04:22)
[2020-05-29] MEDS: METHADONE 80 MG, METHADONE 20 MG PO SCH (06:54)
[2020-05-29] MEDS: cloNIDine HCL 0.1 MG TABLET PO SCH ×3 (06:54→22:24)
[2020-05-29] MEDS: chlordiazePOXIDE HCL 10 MG CAPSULE PO SCH ×2 (06:54→17:38)
[2020-05-29] MEDS: INSULIN SLIDING SCALE (NOVOLOG) 1 VIAL SQ SCH ×3 (07:03→17:09)
[2020-05-29] MEDS: FERROUS SO4 325 MG TABLET (FP) PO SCH ×3 (07:04→17:38)
[2020-05-29] MEDS: metFORMIN HCL 500 MG TABLET (FP) PO SCH (07:06)
[2020-05-29] MEDS: ASPIRIN COATED 81 MG TABLET.EC PO SCH (11:13)
[2020-05-29] MEDS: PRENATAL VITAMINS W/ FOLIC ACID TABLET (FP) PO SCH (11:14)
[2020-05-29] MEDS: BACITRACIN 0.9 GM PACKET TP SCH (11:14)
[2020-05-29] MEDS: TOLNAFTATE 1% CREAM 15 GM TUBE TP SCH ×2 (11:14→22:24)
[2020-05-29] MEDS: BUDESONIDE/FORMETEROL FUMARATE 160/4.5 mcg INHALER IH SCH ×2 (11:14→22:24)
[2020-05-29] MEDS: INSULIN (LEVEMIR) 100 UNITS/ML UNITS SQ SCH (22:24)
[2020-05-29] MEDS: ATORVASTATIN CA 40 MG TABLET (FP) PO SCH (22:24)
[2020-05-29] MEDS: MELATONIN 5 MG TABLETS PO SCH (22:24)
[2020-05-29] MEDS: traZODone HCL 100 MG TABLET (FP) PO SCH (22:24)
[2020-05-29] MEDS: THIAMINE HCL 100 MG TABLET (FP) PO SCH (22:24)
[2020-05-30] MEDS ORDERED: METHADONE HCL 10 MG TABLET ONE (03:26)
[2020-05-30] MEDS ORDERED: METHADONE HCL 40 MG DISPERSABLE TABLET ONE (03:27)
[2020-05-30] MEDS ORDERED: chlordiazePOXIDE HCL 10 MG CAPSULE PO ONE (05:00)
[2020-05-30] MEDS: cloNIDine HCL 0.1 MG TABLET PO SCH (06:21)
[2020-05-30] MEDS: INSULIN SLIDING SCALE (NOVOLOG) 1 VIAL SQ SCH ×2 (06:22→10:33)
[2020-05-30] MEDS: METHADONE 80 MG, METHADONE 20 MG PO SCH (06:22)
[2020-05-30 10:00] VITALS: BP 114/68; PULSE 81; TEMP 97.1
[2020-05-30] MEDS: BUDESONIDE/FORMETEROL FUMARATE 160/4.5 mcg INHALER IH SCH (10:29)
[2020-05-30] MEDS: ASPIRIN COATED 81 MG TABLET.EC PO SCH (10:29)
[2020-05-30] MEDS: metFORMIN HCL 500 MG TABLET (FP) PO SCH (10:29)
[2020-05-30] MEDS: PRENATAL VITAMINS W/ FOLIC ACID TABLET (FP) PO SCH (10:29)
[2020-05-30] MEDS: BACITRACIN 0.9 GM PACKET TP SCH (10:29)
[2020-05-30] MEDS: FERROUS SO4 325 MG TABLET (FP) PO SCH (10:29)
[2020-05-30] MEDS: TOLNAFTATE 1% CREAM 15 GM TUBE TP SCH (10:30)
== END 2020-05-30 11:52 | disposition home or self-care (01) | DRG 773 ==
LOC: YASAS 13:52 → Y6N 16:40
PROVIDERS: ADMIT Allergy & Immunology; ATTEND Allergy & Immunology
PROC: HZ2ZZZZ Detoxification Services for Substance Abuse Treatment (ICD-10-PCS; principal; 2020-05-25)
DX: F10.230 Alcohol dependence with withdrawal, uncomplicated (principal); F10.282 Alcohol dependence with alcohol-induced sleep disorder; F11.20 Opioid dependence, uncomplicated; F17.210 Nicotine dependence, cigarettes, uncomplicated; I10 Essential (primary) hypertension; K74.60 Unspecified cirrhosis of liver; A53.0 Latent syphilis, unspecified as early or late; J45.909 Unspecified asthma, uncomplicated; L81.9 Disorder of pigmentation, unspecified; M19.90 Unspecified osteoarthritis, unspecified site; R60.9 Edema, unspecified; K21.9 Gastro-esophageal reflux disease without esophagitis; E78.5 Hyperlipidemia, unspecified; E11.65 Type 2 diabetes mellitus with hyperglycemia; D64.9 Anemia, unspecified; K42.9 Umbilical hernia without obstruction or gangrene; R26.2 Difficulty in walking, not elsewhere classified; Z99.89 Dependence on other enabling machines and devices; B35.3 Tinea pedis; H55.00 Unspecified nystagmus; Z79.4 Long term (current) use of insulin; Z79.84 Long term (current) use of oral hypoglycemic drugs
CPT/HCPCS: 36415; 80053; 82962; 85025; 85027; 86593; 86780; C9803; J0735; U0003